=== PATIENT | female | born 1965 | race African-American/Black ===

== ENCOUNTER 2017-07-03 18:04 | Emergency (ER) | payer MEDICAID ==
[~2017-07-03 18:04] MED LIST: Z.0.NO CURRENT MEDS
[2017-07-03 18:06] VITALS: BP 165/81; PULSE 109; RESP 18; TEMP 97.9; O2SAT 98
--- NOTE | 2017-07-03 19:05 | PD ---
HPI Chief Complaint: Cardiac Complaint Time Seen by Provider: 18:49 Travel History International Travel<30 days: No Contact w/Intl Traveler<30days: No Traveled to known affect area: No History of Present Illness HPI c/o fluttering sensation to chest, intermittently occurring, no sob/cp, is in the process to go see dr irving for further care (echo, holter, ) ...denies any n/v/fever/dominique/cp/abd pain at this point and also denies any alleviating/ aggravating factors pcp is daniella all=nkda pmhx: dm, htn , retinopathy, neuropathy PFSH Past Medical History Diabetes: Yes : 1 Para: 1 Past Surgical History Section: Yes Oral Surgery: Yes (DENTAL) Social History Alcohol Use: No Tobacco Use: Yes (/2 PPD) Substance Use: No Allergies-Medications (Allergen,Severity, Reaction): Coded Allergies: No Known Allergies (Verified , 07/03/17) Reported Meds & Prescriptions Reported Meds & Active Scripts Active Reported Metoprolol Tartrate 25 Mg Tab 25 Mg PO BID Furosemide 40 Mg Tab 40 Mg PO DAILY Gabapentin 600 Mg Tab 600 Mg PO HS Zetia (Ezetimibe) 10 Mg Tab 10 Mg PO DAILY Potassium Chloride ER (Potassium Chloride) 8 Meq Cap 8 Meq PO DAILY Farxiga (Dapagliflozin) 10 Mg Tab 10 Mg PO DAILY Cozaar (Losartan Potassium) 50 Mg Tab 40 Mg PO DAILY Metformin (Metformin HCl) 1,000 Mg Tab 1,000 Mg PO BIDPC With meals Novolin 70-30 Inj (Insulin Human Isoph/Insulin Regular) 1,000 Unit/10 Ml Vial 45 Units SQ HS Novolin 70-30 Inj (Insulin Human Isoph/Insulin Regular) 1,000 Unit/10 Ml Vial 50 Units SQ DAILY Novolin 70-30 Inj (Insulin Human Isoph/Insulin Regular) 1,000 Unit/10 Ml Vial 1 Units SQ Review of Systems Except as stated in HPI: all other systems reviewed are Neg Cardiovascular: Positive: Palpitations Physical Exam Narrative GENERAL: SKIN: Warm and dry. HEAD: Atraumatic. Normocephalic. EYES: Pupils equal and round. No scleral icterus. No injection or drainage. ENT: No nasal bleeding or discharge. Mucous membranes pink and moist. NECK: Trachea midline. No JVD. CARDIOVASCULAR: Regular rate and rhythm. RESPIRATORY: No accessory muscle use. Clear to auscultation. Breath sounds equal bilaterally. GASTROINTESTINAL: Abdomen soft, non-tender, nondistended. MUSCULOSKELETAL: Extremities without clubbing, cyanosis, or edema. No obvious deformities. NEUROLOGICAL: Awake and alert. No obvious cranial nerve deficits. Motor grossly within normal limits. Five out of 5 muscle strength in the arms and legs. Normal speech. PSYCHIATRIC: Appropriate mood and affect; insight and judgment normal. Data Data Last Documented VS Vital Signs Date Time Temp Pulse Resp B/P (MAP) Pulse Ox O2 Delivery O2 Flow Rate FiO2 07/03/17 19:51 104 18 98 Room Air 07/03/17 18:06 97.9 Orders Orders Electrocardiogram (07/03/17 18:59) Complete Blood Count With Diff (07/03/17 18:59) Comprehensive Metabolic Panel (07/03/17 18:59) Troponin I (07/03/17 18:59) Lipase (07/03/17 18:59) Thyroid Stimulating Hormone (07/03/17 18:59) Chest, Single Ap (07/03/17 18:59) Iv Access Insert/Monitor (07/03/17 18:59) Ecg Monitoring (07/03/17 18:59) Oximetry (07/03/17 18:59) Drug Screen, Random Urine (07/03/17 18:59) Alcohol (Ethanol) (07/03/17 18:59) Salicylates (Aspirin) (07/03/17 18:59) Tylenol (Acetaminophen) (07/03/17 18:59) Metoprolol Succinate Er (Toprol Xl) (07/03/17 19:45) Labs Laboratory Tests Test 07/03/17 19:30 07/03/17 19:40 White Blood Count 7.5 TH/MM3 Red Blood Count 4.54 MIL/MM3 Hemoglobin 14.1 GM/DL Hematocrit 42.3 % Mean Corpuscular Volume 93.3 FL Mean Corpuscular Hemoglobin 31.1 PG Mean Corpuscular Hemoglobin Concent 33.3 % Red Cell Distribution Width 15.1 % Platelet Count 326 TH/MM3 Mean Platelet Volume 8.3 FL Neutrophils (%) (Auto) 56.1 % Lymphocytes (%) (Auto) 30.8 % Monocytes (%) (Auto) 9.0 % Eosinophils (%) (Auto) 3.2 % Basophils (%) (Auto) 0.9 % Neutrophils # (Auto) 4.2 TH/MM3 Lymphocytes # (Auto) 2.3 TH/MM3 Monocytes # (Auto) 0.7 TH/MM3 Eosinophils # (Auto) 0.2 TH/MM3 Basophils # (Auto) 0.1 TH/MM3 CBC Comment DIFF FINAL Differential Comment Blood Urea Nitrogen 15 MG/DL Creatinine 1.33 MG/DL Random Glucose 188 MG/DL Total Protein 7.7 GM/DL Albumin 3.7 GM/DL Calcium Level 9.1 MG/DL Alkaline Phosphatase 149 U/L Aspartate Amino Transf (AST/SGOT) 34 U/L Alanine Aminotransferase (ALT/SGPT) 42 U/L Total Bilirubin 0.2 MG/DL Sodium Level 139 MEQ/L Potassium Level 4.0 MEQ/L Chloride Level 104 MEQ/L Carbon Dioxide Level 23.8 MEQ/L Anion Gap 11 MEQ/L Estimat Glomerular Filtration Rate 51 ML/MIN Troponin I LESS THAN 0.02 NG/ML Lipase 370 U/L Thyroid Stimulating Hormone 3rd Gen 0.731 uIU/ML Salicylates Level 2.8 MG/DL Acetaminophen Level LESS THAN 2.0 MCG/ML Ethyl Alcohol Level LESS THAN 3 MG/DL Urine Opiates Screen NEG Urine Barbiturates Screen NEG Urine Amphetamines Screen NEG Urine Benzodiazepines Screen NEG Urine Cocaine Screen POS Urine Cannabinoids Screen POS MDM Medical Decision Making Medical Screen Exam Complete: Yes Emergency Medical Condition: Yes Medical Record Reviewed: Yes Differential Diagnosis dysrhythmia v anemia v dehydration Narrative Course ADVISED PATIENT THAT PALPITATIONS MAY BE DUE TO COCAINE IN SYSTEM, BUT THAT FURTHER EVALUATION SHOULD BE CONTINUED WITH [employer] OPERATOR HELPER FOR ECHO AND HOLTER EVALUATION. Diagnosis Primary Impression: palpitations Disposition: 01 DISCHARGE HOME Condition: Stable Damien Aguilar MD Jul 03, 2017 19:05
--- NOTE | 2017-07-03 19:14 | RADRPT ---
EXAM DATE/TIME: 07/03/2017 18:55 [facility] COMPARISON: No previous studies available for comparison. INDICATIONS : Chest palpitations that started today. MEDICAL HISTORY : Hypertension. Diabetes mellitus type II. SURGICAL HISTORY : None. ENCOUNTER: Initial ACUITY: 1 day PAIN SCORE: 0/10 LOCATION: Bilateral chest FINDINGS: A single view of the chest demonstrates the lungs to be symmetrically aerated without evidence of mas s, infiltrate or effusion. The cardiomediastinal contours are unremarkable. Osseous structures are intact. CONCLUSION: Normal one view chest x-ray. Levon Arzola MD on July 03, 2017 at 19:12 Board Certified Radiologist. This report was verified electronically.
[2017-07-03] MEDS ORDERED: METO25TA3 PO (19:34)
[2017-07-03] MEDS ORDERED: NOVO7030P2 SQ ×3 (19:34)
[2017-07-03] MEDS ORDERED: FURO40TA PO (19:34)
[2017-07-03] MEDS ORDERED: ZETI10TA5 PO (19:34)
[2017-07-03] MEDS ORDERED: COZA50TA PO (19:34)
[2017-07-03] MEDS ORDERED: METF1000 PO (19:34)
[2017-07-03] MEDS ORDERED: POTA8CAP PO (19:34)
[2017-07-03] MEDS ORDERED: DAPA1TAB3 PO (19:34)
[2017-07-03] MEDS ORDERED: GABA600T PO (19:34)
[2017-07-03] MEDS ORDERED: METOPROLOL SUCCINATE 50 MG EXTENDED RELEASE TAB PO ONE (19:45)
[2017-07-03 19:51] VITALS: BP 135/77; PULSE 104; RESP 18; O2SAT 98
[2017-07-03 20:09] LABS: AUTOMATED NEUTROPHIL # 4.2 TH/MM3 (1.8-7.7); BASOPHIL # 0.1 TH/MM3 (0-0.2); BASOPHIL % 0.9 % (0.0-2.0); EOSINOPHIL # 0.2 TH/MM3 (0-0.4); EOSINOPHIL % 3.2 % (0.0-4.0); HEMATOCRIT 42.3 % (35.0-46.0); HEMO FLAGS DIFF FINAL; LYMPH % 30.8 % (9.0-44.0); LYMPHOCYTE # 2.3 TH/MM3 (1.0-4.8); MEAN CELL VOLUME 93.3 FL (80.0-100.0); MEAN CORPUSCULAR HEMOGLOBIN 31.1 PG (27.0-34.0); MEAN CORPUSCULAR HGB CONC 33.3 % (32.0-36.0); NEUT % 56.1 % (16.0-70.0); PLATELET COUNT 326 TH/MM3 (150-450); RED BLOOD COUNT 4.54 MIL/MM3 (4.00-5.30); RED CELL DISTRIBUTION WIDTH 15.1 % (11.6-17.2); WHITE BLOOD COUNT 7.5 TH/MM3 (4.0-11.0)
[2017-07-03 20:29] LABS: ALT (GPT) 42 U/L (10-53)
[2017-07-03 20:39] LABS: ALKALINE PHOSPHATASE 149 U/L (45-117); TOTAL BILIRUBIN ADULT 0.2 MG/DL (0.2-1.0)
[2017-07-03 20:52] LABS: ANION GAP 11 MEQ/L (5-15); AST (GOT) 34 U/L (15-37); BICARBONATE 23.8 MEQ/L (21.0-32.0); BLOOD UREA NITROGEN 15 MG/DL (7-18); CHLORIDE 104 MEQ/L (98-107); GLOMERULAR FILTRATION RATE 51 ML/MIN (>89); SODIUM (NA) 139 MEQ/L (136-145)
[2017-07-03 20:55] LABS: ACETAMINOPHEN LESS THAN 2.0 MCG/ML (10.0-30.0); ALCOHOL LESS THAN 3 MG/DL (0-5)
--- NOTE | 2017-07-04 21:36 | EKG ---
Date Performed: 07/03/2017 Time Performed: 19:24:58 PTAGE: 51 years EKG: SINUS TACHYCARDIA ABNORMAL RHYTHM ECG NO PREVIOUS TRACING DOCTOR: Armen Heller Interpretating Date/Time 07/04/2017 21:35:36
== END 2017-07-03 22:33 | disposition home or self-care (01) ==
LOC: NEPD 18:04
DX: R00.2 Palpitations (principal); R94.31 Abnormal electrocardiogram [ECG] [EKG]; R00.0 Tachycardia, unspecified; E11.319 Type 2 diabetes mellitus with unspecified diabetic retinopathy without macular edema; E11.40 Type 2 diabetes mellitus with diabetic neuropathy, unspecified; I10 Essential (primary) hypertension; F17.200 Nicotine dependence, unspecified, uncomplicated; Z79.4 Long term (current) use of insulin; Z79.899 Other long term (current) drug therapy
CPT/HCPCS: 71010; 80053; 80307; 83690; 84443; 84484; 85025; 93005; 99285

== ENCOUNTER 2017-11-06 20:26 | Inpatient (IN) | payer MEDICAID ==
[~2017-11-06] VITALS: Ht 172.7 cm; Wt 126.9 kg
[~2017-11-06 20:26] MED LIST changes: +COZA50TA PO; +DAPA1TAB3 PO; +EZET10 PO; +FURO40TA PO; +GABA600T PO; +METF1000 PO; +METO25TA3 PO; +NOVO7030P2 SQ; +POTA8CAP PO; -Z.0.NO CURRENT MEDS
[2017-11-06 20:32] VITALS: BP 121/69; PULSE 102; RESP 16; TEMP 100; O2SAT 97
[2017-11-06] MEDS ORDERED: IBUPROFEN 800 MG TAB PO ONE (20:45)
[2017-11-06 21:13] LABS: BASOPHIL # 0.1 TH/MM3 (0-0.2); BASOPHIL % 0.3 % (0.0-2.0); EOSINOPHIL % 0.2 % (0.0-4.0); HEMATOCRIT 37.2 % (35.0-46.0); HEMOGLOBIN 12.1 GM/DL (11.6-15.3); LYMPH % 4.3 % (9.0-44.0); LYMPHOCYTE # 0.8 TH/MM3 (1.0-4.8); MEAN CELL VOLUME 91.8 FL (80.0-100.0); MEAN CORPUSCULAR HEMOGLOBIN 29.8 PG (27.0-34.0); MEAN CORPUSCULAR HGB CONC 32.4 % (32.0-36.0); MONO % 11.2 % (0.0-8.0); MONOCYTE # 2.1 TH/MM3 (0-0.9); PLATELET COUNT 327 TH/MM3 (150-450); RED BLOOD COUNT 4.06 MIL/MM3 (4.00-5.30); RED CELL DISTRIBUTION WIDTH 15.1 % (11.6-17.2)
[2017-11-06 21:38] LABS: ALBUMIN 3.1 GM/DL (3.4-5.0); ALT (GPT) 47 U/L (10-53); AST (GOT) 28 U/L (15-37); BICARBONATE 25.6 MEQ/L (21.0-32.0); BLOOD UREA NITROGEN 13 MG/DL (7-18); CALCIUM 9.3 MG/DL (8.5-10.1); CHLORIDE 99 MEQ/L (98-107); CREATININE 1.24 MG/DL (0.50-1.00); GLOMERULAR FILTRATION RATE 55 ML/MIN (>89); GLUCOSE,RANDOM 286 MG/DL (74-106); SODIUM (NA) 135 MEQ/L (136-145)
[2017-11-06 21:41] LABS: ALKALINE PHOSPHATASE 128 U/L (45-117); TOTAL BILIRUBIN ADULT 0.3 MG/DL (0.2-1.0); TOTAL PROTEIN 7.9 GM/DL (6.4-8.2)
[2017-11-06] MEDS ORDERED: METOCLOPRAMIDE HCL 10 MG/2 ML VIAL IV PUSH ONE (22:00)
[2017-11-06] MEDS ORDERED: PIPERACIL-TAZO 4.5 GM PREMIX 100 ML IV ONE (22:00)
[2017-11-06] MEDS ORDERED: IBUPROFEN 600 MG TAB PO ONE (22:00)
[2017-11-06] MEDS ORDERED: VANCOMYCIN 1 GM/200 ML INJ 200 ML IV SCH (22:00)
[2017-11-06] MEDS ORDERED: diphenhydrAMINE HCL 50 MG/ML VIAL IV PUSH ONE (22:00)
--- NOTE | 2017-11-06 22:07 | PD ---
HPI Chief Complaint: Skin Problem Time Seen by Provider: 21:53 Travel History International Travel<30 days: No Contact w/Intl Traveler<30days: No Traveled to known affect area: No History of Present Illness HPI 52-year-old black female presents to emergency department with complains of an infection under her right breast. She states that she started off with pain, swelling to her right breast and chest since Sunday. She states that she has had a prior skin infection involving her right lower leg. Since the area has become recently painful and red she's developed subjective fever and chills, nausea, vomiting, general malaise and decreased appetite. She has not been able to take her insulin. She has noted her blood sugars to be over 350 at home. Symptoms are moderate to can be severe. He denies any alleviating symptoms. PFSH Past Medical History Narrative Medical Diabetes, hypercholesterolemia, hypertension, diabetic neuropathy, diabetic retinopathy High Cholesterol: Yes Diabetes: Yes Patient Takes Glucophage: Yes Diminished Hearing: No Hypertension: Yes Tetanus Vaccination: < 5 Years ?: Not : 1 Para: 1 Past Surgical History Narrative Surgical Section: Yes Oral Surgery: Yes (DENTAL) Social History Alcohol Use: No Tobacco Use: Yes (10/23 PPD) Substance Use: No Allergies-Medications (Allergen,Severity, Reaction): Coded Allergies: No Known Allergies (Verified , 07/03/17) Reported Meds & Prescriptions Reported Meds & Active Scripts Active Reported Furosemide 40 Mg Tab 40 Mg PO DAILY Gabapentin 600 Mg Tab 600 Mg PO HS Potassium Chloride ER (Potassium Chloride) 8 Meq Cap 8 Meq PO DAILY Farxiga (Dapagliflozin) 10 Mg Tab 10 Mg PO DAILY Cozaar (Losartan Potassium) 50 Mg Tab 40 Mg PO DAILY Metformin (Metformin HCl) 1,000 Mg Tab 1,000 Mg PO BIDPC With meals Novolin 70-30 Inj (Insulin Human Isoph/Insulin Regular) 1,000 Unit/10 Ml Vial 45 Units SQ HS Novolin 70-30 Inj (Insulin Human Isoph/Insulin Regular) 1,000 Unit/10 Ml Vial 50 Units SQ DAILY Novolin 70-30 Inj (Insulin Human Isoph/Insulin Regular) 1,000 Unit/10 Ml Vial 1 Units SQ Review of Systems Except as stated in HPI: all other systems reviewed are Neg Physical Exam Narrative GENERAL: Well-developed, well-nourished in no apparent distress. Nontoxic appearing. Patient is examined in the presence of the nurse. HEAD: Normocephalic, atraumatic. EYES: Pupils equal round and reactive. Extraocular motions intact. No scleral icterus. No injection or drainage. ENT: Nose clear. Throat without erythema, tonsillar hypertrophy or exudate. Uvula midline. Airway patent. NECK: Trachea midline. Supple, nontender, moves head freely. No central bony tenderness or spasm. CARDIOVASCULAR: Regular rate and rhythm without murmurs, gallops, or rubs. RESPIRATORY: Clear to auscultation. Breath sounds equal bilaterally. No wheezes , rales, or rhonchi. GASTROINTESTINAL: Abdomen soft, non-tender, nondistended. No hepato-splenomegaly , or palpable masses. No guarding. EXTREMITIES: No clubbing, cyanosis, or edema. No joint tenderness. BACK: Nontender without deformity. No flank tenderness. NEUROLOGICAL: Awake, alert and oriented x 3 .Cranial nerves grossly intact. Motor and sensory grossly within normal limits. Normal speech. Skin: The patient has an area of erythema, warmth and induration under the right breast up into the right breast involving the outer quadrant in the area of 3 and 6:00 on the breast. There is no fluctuance or pointing. Data Data Last Documented VS Vital Signs Date Time Temp Pulse Resp B/P (MAP) Pulse Ox O2 Delivery O2 Flow Rate FiO2 11/06/17 20:32 100.0 102 16 121/69 (86) 97 Orders Orders Complete Blood Count With Diff (11/06/17 20:37) Comprehensive Metabolic Panel (11/06/17 20:37) Ibuprofen (Motrin) (11/06/17 20:45) Influenzae A/B Antigen (11/06/17 20:37) Blood Culture (11/06/17 22:00) Iv Access Insert/Monitor (11/06/17 22:00) Lactic Acid (11/06/17 22:00) Vancomycin Inj (Vancomycin Inj) (11/06/17 22:00) Piperacil-Tazo 4.5 Gm Premix (Zosyn 4.5 (11/06/17 22:00) Us Breast Unilateral (11/06/17 ) Diphenhydramine Inj (Benadryl Inj) (11/06/17 22:00) Metoclopramide Inj (Reglan Inj) (11/06/17 22:00) Ibuprofen (Motrin) (11/06/17 22:00) Sodium Chlor 0.9% 1000 Ml Inj (Ns 1000 M (11/06/17 22:15) Sodium Chlor 0.9% 1000 Ml Inj (Ns 1000 M (11/06/17 22:15) Admit To Inpatient (11/06/17 ) Vital Signs (Adult) Q4H (11/06/17 22:37) Activity Oob With Assistance (11/06/17 22:37) Internal Control Manager / Telemetry .CONTINUOUS (11/06/17 22:37) Diet 1800 Ada Cons Carb (11/07/17 Breakfast) Diet Heart Healthy (11/07/17 Breakfast) Sodium Chloride 0.9% Flush (Ns Flush) (11/06/17 22:45) Sodium Chloride 0.9% Flush (Ns Flush) (11/07/17 09:00) Basic Metabolic Panel (Bmp) (11/07/17 06:00) Complete Blood Count With Diff (11/07/17 06:00) Naloxone Inj (Narcan Inj) (11/06/17 22:45) Inpatient Certification (11/06/17 ) Levofloxacin 750 Mg Premix Inj (Levaquin (11/07/17 09:00) Insulin Human Regular Inj (Novolin R Inj (11/06/17 22:45) Admit Order (Ed Use Only) (11/06/17 ) Vital Signs (Adult) Q4H (11/06/17 22:43) Activity Oob With Assistance (11/06/17 22:43) Notify Dr: Other (11/06/17 22:43) Labs Laboratory Tests Test 11/06/17 20:46 11/06/17 22:10 White Blood Count 19.0 TH/MM3 Red Blood Count 4.06 MIL/MM3 Hemoglobin 12.1 GM/DL Hematocrit 37.2 % Mean Corpuscular Volume 91.8 FL Mean Corpuscular Hemoglobin 29.8 PG Mean Corpuscular Hemoglobin Concent 32.4 % Red Cell Distribution Width 15.1 % Platelet Count 327 TH/MM3 Mean Platelet Volume 8.0 FL Neutrophils (%) (Auto) 84.0 % Lymphocytes (%) (Auto) 4.3 % Monocytes (%) (Auto) 11.2 % Eosinophils (%) (Auto) 0.2 % Basophils (%) (Auto) 0.3 % Neutrophils # (Auto) 16.0 TH/MM3 Lymphocytes # (Auto) 0.8 TH/MM3 Monocytes # (Auto) 2.1 TH/MM3 Eosinophils # (Auto) 0.0 TH/MM3 Basophils # (Auto) 0.1 TH/MM3 CBC Comment DIFF FINAL Differential Comment Blood Urea Nitrogen 13 MG/DL Creatinine 1.24 MG/DL Random Glucose 286 MG/DL Total Protein 7.9 GM/DL Albumin 3.1 GM/DL Calcium Level 9.3 MG/DL Alkaline Phosphatase 128 U/L Aspartate Amino Transf (AST/SGOT) 28 U/L Alanine Aminotransferase (ALT/SGPT) 47 U/L Total Bilirubin 0.3 MG/DL Sodium Level 135 MEQ/L Potassium Level 3.7 MEQ/L Chloride Level 99 MEQ/L Carbon Dioxide Level 25.6 MEQ/L Anion Gap 10 MEQ/L Estimat Glomerular Filtration Rate 55 ML/MIN MDM Medical Decision Making Medical Screen Exam Complete: Yes Emergency Medical Condition: Yes Medical Record Reviewed: Yes Interpretation(s) CBC & BMP Diagram 11/06/17 20:46 Total Protein 7.9, Albumin 3.1 L, Calcium Level 9.3, Alkaline Phosphatase 128 H , Aspartate Amino Transf (AST/SGOT) 28, Alanine Aminotransferase (ALT/SGPT) 47, Total Bilirubin 0.3 Last 24 hours Impressions Breast Ultrasound 11/06/17 0000 Signed Impressions: Service Date/Time: Monday, November 06, 2017 22:01 - CONCLUSION: This examination was performed to evaluate for any abscess. No abscess is observed. Isolated sonographic evaluation of the breast without mammographic correlate is exceedingly insensitive for detection of malignancy. Correlation with mammography is needed. Jelani Castelan Jr., MD Differential Diagnosis MDM: High Differential diagnoses: Abscess, folliculitis, cellulitis, lymphangitis, abrasion, contact dermatitis Narrative Course IV access is obtained. Patient has basic labs drawn including blood culture, lactic acid, normal saline 1 L bolus, Motrin 600 mg by mouth, vancomycin 1 g IV , Zosyn 4.5 mg IV. Ultrasound of the right breast. Ultrasound of the breast reveals no obvious abscess. The patient is given 3 units of regular insulin IV. The case has been discussed with Dr. WHITEHEAD who is agreed to admit the patient. This is right chest wall and right breast cellulitis Sepsis Criteria SIRS Criteria (2 or more): Heart rate over 90, WBC > 10058, < 4000 or > 10% bands Sepsis Criteria (SIRS+source): Infect source susp/known Criteria Outcome: Meets SIRS criteria Diagnosis Primary Impression: right chest wall and right breast cellulitis Condition: Stable Venkatesh Winters Nov 06, 2017 22:07
[2017-11-06] MEDS ORDERED: SODIUM CHLOR 0.9% 1000 ML INJ 1,000 ML IV ONE ×2 (22:15)
--- NOTE | 2017-11-06 22:32 | RADRPT ---
EXAM DATE/TIME: 11/06/2017 22:01 [facility] COMPARISON: No previous studies available for comparison. INDICATIONS : Abscess. MEDICAL HISTORY : Hypercholesterolemia. Hypertension. Diabetes. SURGICAL HISTORY : section. Dental surgery. ENCOUNTER: Initial ACUITY: 1 week PAIN SCORE: 10/10 LOCATION: Right breast. FINDINGS: Sonographic evaluation of the right breast from 4 to 8: 00 position was performed to evaluate for abscess. No fluid collection observed. CONCLUSION: This examination was performed to evaluate for any abscess. No abscess is observed. Isolated sonograp hic evaluation of the breast without mammographic correlate is exceedingly insensitive for detection of malignancy. Correlation with mammography is needed. Jelani Castelan Jr., MD on November 06, 2017 at 22:27 Board Certified Radiologist. This report was verified electronically.
[2017-11-06] MEDS ORDERED: NALOXONE HCL 0.4 MG/ML AMP IV PUSH PRN (22:45)
[2017-11-06] MEDS ORDERED: SODIUM CHLORIDE 0.9% FLUSH 10 ML FLUSH IV FLUSH PRN (22:45)
[2017-11-06] MEDS ORDERED: INSULIN HUMAN REGULAR 1,000 UNITS/10 ML VIAL IV PUSH ONE (22:45)
--- NOTE | 2017-11-06 23:58 | HHI.HP ---
HPI Service [facility] Hospitalists Primary Care Physician Non-Staff Admission Diagnosis right chest wall and right breast cellulitis, IDDM Diagnoses: Travel History International Travel<30 Days: No Contact w/Intl Traveler <30 Da: No Traveled to Known Affected Are: No History of Present Illness 52-year-old female with a history of hypertension, diabetes, diabetic neuropathy presented to the ED with complaints of painful lump under her right breast. Patient states on Sunday she noticed a right lump under her right breast that is very painful, throbbing in nature, 8 out of 10, worse with movement with associated nausea, fever and chills. Patient states 3 years ago she had an infection in her right foot in which she had similar symptoms so she came to the hospital. She is currently on insulin at home and states her sugars are not controlled but she does follow up with PCP. She denies any chest pain. She does state she gets shortness of breath with exertion since Sunday. Review of Systems Except as stated in HPI: all other systems reviewed are Neg Past Family Social History Past Medical History DM HTN Diabetic retinopathy Diabetic neuropathy Past Surgical History Right foot I&D Reported Medications Reported Meds & Active Scripts Active Reported Furosemide 40 Mg Tab 40 Mg PO DAILY Gabapentin 600 Mg Tab 600 Mg PO HS Potassium Chloride ER (Potassium Chloride) 8 Meq Cap 8 Meq PO DAILY Farxiga (Dapagliflozin) 10 Mg Tab 10 Mg PO DAILY Cozaar (Losartan Potassium) 50 Mg Tab 40 Mg PO DAILY Metformin (Metformin HCl) 1,000 Mg Tab 1,000 Mg PO BIDPC With meals Novolin 70-30 Inj (Insulin Human Isoph/Insulin Regular) 1,000 Unit/10 Ml Vial 45 Units SQ HS Novolin 70-30 Inj (Insulin Human Isoph/Insulin Regular) 1,000 Unit/10 Ml Vial 50 Units SQ DAILY Novolin 70-30 Inj (Insulin Human Isoph/Insulin Regular) 1,000 Unit/10 Ml Vial 1 Units SQ Allergies: Coded Allergies: No Known Allergies (Verified Allergy, Unknown, 11/06/17) Active Ordered Medications Current Medications Medications (Trade) Dose Ordered Sig/Matthew Route Start Time Stop Time Status Last Admin Vancomycin/Sodium Chloride 200 ml @ 200 mls/hr [employer] INST[employer]ER IV 11/06/17 22:00 11/09/17 21:59 (NS Flush) 2 ml UNSCH PRN IV FLUSH 11/06/17 22:45 (NS Flush) 2 ml BID IV FLUSH 11/07/17 09:00 (Narcan Inj) 0.4 mg UNSCH PRN IV PUSH 11/06/17 22:45 Levofloxacin/ Dextrose 150 ml @ 100 mls/hr Q24H IV 11/07/17 09:00 Family History Dad: HTN, DM, heart disease Mom: Fady cancer Social History Tobacco use: /2 PPD Alcohol use: occasionally Physical Exam Vital Signs Vital Signs Date Time Temp Pulse Resp B/P (MAP) Pulse Ox O2 Delivery O2 Flow Rate FiO2 11/06/17 20:32 100.0 102 16 121/69 (86) 97 Physical Exam GENERAL: This is a well-nourished, well-developed patient, in no apparent distress. SKIN: Right breast cellulitis erythema and warmth, no drainage HEAD: Atraumatic. Normocephalic. EYES: Pupils equal round and reactive. ENT: Nose without bleeding, purulent drainage or septal hematoma. Airway patent. NECK: Trachea midline. No JVD or lymphadenopathy. CARDIOVASCULAR: Regular rate and rhythm without murmurs, gallops, or rubs. RESPIRATORY: Diminished bases. Breath sounds equal bilaterally. No wheezes, rales, or rhonchi. GASTROINTESTINAL: Abdomen soft, obese, non-tender, nondistended. MUSCULOSKELETAL: Extremities without clubbing, cyanosis, or edema. No calf tenderness. NEUROLOGICAL: Awake and alert. Motor and sensory grossly within normal limits. Normal speech. Laboratory Laboratory Tests Test 11/06/17 20:46 11/06/17 22:10 White Blood Count 19.0 Red Blood Count 4.06 Hemoglobin 12.1 Hematocrit 37.2 Mean Corpuscular Volume 91.8 Mean Corpuscular Hemoglobin 29.8 Mean Corpuscular Hemoglobin Concent 32.4 Red Cell Distribution Width 15.1 Platelet Count 327 Mean Platelet Volume 8.0 Neutrophils (%) (Auto) 84.0 Lymphocytes (%) (Auto) 4.3 Monocytes (%) (Auto) 11.2 Eosinophils (%) (Auto) 0.2 Basophils (%) (Auto) 0.3 Neutrophils # (Auto) 16.0 Lymphocytes # (Auto) 0.8 Monocytes # (Auto) 2.1 Eosinophils # (Auto) 0.0 Basophils # (Auto) 0.1 CBC Comment DIFF FINAL Differential Comment Blood Urea Nitrogen 13 Creatinine 1.24 Random Glucose 286 Total Protein 7.9 Albumin 3.1 Calcium Level 9.3 Alkaline Phosphatase 128 Aspartate Amino Transf (AST/SGOT) 28 Alanine Aminotransferase (ALT/SGPT) 47 Total Bilirubin 0.3 Sodium Level 135 Potassium Level 3.7 Chloride Level 99 Carbon Dioxide Level 25.6 Anion Gap 10 Estimat Glomerular Filtration Rate 55 Lactic Acid Level 2.1 Date/Time Source Procedure Growth Status 11/06/17 22:10 Blood Peripheral Aerobic Blood Culture Pending Received 11/06/17 22:10 Blood Peripheral Anaerobic Blood Culture Pending Received 11/06/17 20:46 Nasal Washing Influenza Types A,B Antigen (SRINI) - Final NEGATIVE FOR FLU A AND B ANTIGEN.... Complete Result Diagram: 11/06/17204511/06/172045 Imaging Last Impressions Breast Ultrasound 11/06/17 0000 Signed Impressions: Service Date/Time: Monday, November 06, 2017 22:01 - CONCLUSION: This examination was performed to evaluate for any abscess. No abscess is observed. Isolated sonographic evaluation of the breast without mammographic correlate is exceedingly insensitive for detection of malignancy. Correlation with mammography is needed. MD Naeem Jaquez Jr. VTE Risk Assessment Caprini VTE Risk Assessment: No/Low Risk (score <= 1) Caprini Risk Assessment Model Point Value = 1 Point Value = 2 Point Value = 3 Point Value = 5 Age 41-60 Minor surgery BMI > 25 kg/m2 Swollen legs Varicose veins or History of unexplained or recurrent spontaneous Oral contraceptives or hormone replacement Sepsis (< 1 month) Serious lung disease, including pneumonia (< 1 month) Abnormal pulmonary function Acute myocardial infarction Congestive heart failure (< 1 month) History of inflammatory bowel disease Medical patient at bed rest Age 61-74 Arthroscopic surgery Major open surgery (> 45 min) Laparoscopic surgery (> 45 min) Malignancy Confined to bed (> 72 hours) Immobilizing plaster cast Central venous access Age >= 75 History of VTE Family history of VTE Factor V Leiden Prothrombin [id number] Lupus anticoagulant Anticardiolipin antibodies Elevated serum homocysteine Heparin-induced thrombocytopenia Other congenital or acquired thrombophilia Stroke (< 1 month) Elective arthroplasty Hip, pelvis, or leg fracture Acute spinal cord injury (< 1 month) Prophylaxis Regimen Total Risk Factor Score Risk Level Prophylaxis Regimen 0-1 Low Early ambulation 2 Moderate Order ONE of the following: *Sequential Compression Device (SCD) *Heparin 5000 units SQ BID 3-4 Higher Order ONE of the following medications: *Heparin 5000 units SQ TID *Enoxaparin/Lovenox 40 mg SQ daily (WT < 150 kg, CrCl > 30 mL/min) *Enoxaparin/Lovenox 30 mg SQ daily (WT < 150 kg, CrCl > 10-29 mL/min) *Enoxaparin/Lovenox 30 mg SQ BID (WT < 150 kg, CrCl > 30 mL/min) AND/OR *Sequential Compression Device (SCD) 5 or more Highest Order ONE of the following medications: *Heparin 5000 units SQ TID (Preferred with Epidurals) *Enoxaparin/Lovenox 40 mg SQ daily (WT < 150 kg, CrCl > 30 mL/min) *Enoxaparin/Lovenox 30 mg SQ daily (WT < 150 kg, CrCl > 10-29 mL/min) *Enoxaparin/Lovenox 30 mg SQ BID (WT < 150 kg, CrCl > 30 mL/min) AND *Sequential Compression Device (SCD) Assessment and Plan Problem List: (1) Cellulitis of right breast ICD Code: N61.0 - Mastitis without abscess (2) Hypertension ICD Code: I10 - Essential (primary) hypertension (3) Diabetes ICD Code: E11.9 - Type 2 diabetes mellitus without complications Assessment and Plan 52-year-old female with a history of hypertension, CKD, diabetes, diabetic neuropathy presented to the ED with complaints of painful lump under her right breast. Sepsis by criteria, heart rate 102, WBC 19.0 source Right breast cellulitis with leukocytosis, lactic acid 2.1 Breast ultrasound reviewed and shows no evidence of an abscess -NS bolus given X 2 -Levaquin IV daily, vancomycin and Zosyn given in ED -Blood cultures pending, will place ID consult if needed -CBC in a.m. -Pain management with [place] -Zofran for nausea, Tylenol for fevers -Repeat lactic acid pending Diabetes, chronic, uncontrolled, glucose 286 -Resumed home medications -Accu-Cheks before meals and at bedtime -Diabetic diet Hypertension, chronic, currently controlled -Resume home medications and monitor vitals CKD, creatinine 1.2 at baseline -Resumed home medications -Avoid nephrotoxins DVT prophylaxis: SCDs Discussed Condition With Patient Physician Certification 2 Midnight Certification Type: Admission for Inpatient Services Order for Inpatient Services The services are ordered in accordance with Medicare regulations or non- Medicare payer requirements, as applicable. In the case of services not specified as inpatient-only, they are appropriately provided as inpatient services in accordance with the 2-midnight benchmark. Estimated LOS (days): 3 days is the estimated time the patient will need to remain in the hospital, assuming treatment plan goals are met and no additional complications. Post-Hospital Plan: Home Janessa Sousa Nov 06, 2017 23:58
[2017-11-07] MEDS ORDERED: DEXTROSE 50% IN WATER 50 ML VIAL(D50) IV PUSH PRN ×2 (00:45→12:30)
[2017-11-07] MEDS ORDERED: GLUCAGON 1 MG/ML VIAL OTHER PRN ×2 (00:45→12:30)
[2017-11-07] MEDS ORDERED: RESP: ALBUTEROL 2.5 MG/IPRATROPIUM 0.5 MG NEB (PRN) NEB (00:45)
[2017-11-07] MEDS: ACETAMINOPHEN/HYDROcodone 325 MG/10 MG TAB PO PRN ×2 (01:50→08:21)
[2017-11-07 02:47] LABS: AUTOMATED NEUTROPHIL # 11.5 TH/MM3 (1.8-7.7); BASOPHIL # 0.1 TH/MM3 (0-0.2); BASOPHIL % 0.4 % (0.0-2.0); EOSINOPHIL % 0.3 % (0.0-4.0); HEMATOCRIT 33.5 % (35.0-46.0); HEMOGLOBIN 11.3 GM/DL (11.6-15.3); LYMPH % 6.4 % (9.0-44.0); LYMPHOCYTE # 0.9 TH/MM3 (1.0-4.8); MEAN CELL VOLUME 92.1 FL (80.0-100.0); MEAN CORPUSCULAR HGB CONC 33.6 % (32.0-36.0); MEAN PLATELET VOLUME 7.8 FL (7.0-11.0); MONO % 11.5 % (0.0-8.0); MONOCYTE # 1.6 TH/MM3 (0-0.9); NEUT % 81.4 % (16.0-70.0); PLATELET COUNT 278 TH/MM3 (150-450); RED BLOOD COUNT 3.64 MIL/MM3 (4.00-5.30); WHITE BLOOD COUNT 14.2 TH/MM3 (4.0-11.0)
[2017-11-07 03:25] LABS: BICARBONATE 27.3 MEQ/L (21.0-32.0); CALCIUM 8.1 MG/DL (8.5-10.1); CREATININE 1.13 MG/DL (0.50-1.00)
[2017-11-07 04:00] VITALS: BP 117/64; PULSE 103; RESP 16; TEMP 97.8; O2SAT 92
[2017-11-07] MEDS: SODIUM CHLOR 0.9% 1000 ML INJ 1,000 ML IV SCH ×3 (05:45→22:38)
[2017-11-07] MEDS: FUROSEMIDE 40 MG TAB PO SCH (08:19)
[2017-11-07] MEDS: metFORMIN HCL 500 MG TAB PO SCH ×2 (08:19→18:14)
[2017-11-07] MEDS: LEVOFLOXACIN 750 MG PREMIX INJ 150 ML IV SCH (08:21)
[2017-11-07] MEDS ORDERED: INSULIN HUMAN NPH/R 70/30 1,000 UNITS/10 ML VIAL SQ SCH ×2 (09:00→21:00)
[2017-11-07] MEDS ORDERED: [UNRECOGNIZED DRUG - OTHER] PO SCH (09:00)
[2017-11-07] MEDS: POTASSIUM CHLORIDE 8 MEQ CAP PO SCH (09:00)
[2017-11-07] MEDS ORDERED: FARXIGA 10 MG PO SCH (09:00)
[2017-11-07 09:02] VITALS: BP 130/80; PULSE 111; RESP 18; TEMP 99.4; O2SAT 95
[2017-11-07] MEDS: LOSARTAN 50 MG TAB PO SCH (10:20)
[2017-11-07] MEDS: SODIUM CHLORIDE 0.9% FLUSH 10 ML FLUSH IV FLUSH SCH ×2 (10:25→21:00)
[2017-11-07 12:35] VITALS: BP 131/70; PULSE 120; RESP 18; TEMP 101.1; O2SAT 96
[2017-11-07] MEDS: ACETAMINOPHEN 325 MG TAB PO PRN (13:36)
[2017-11-07 16:47] VITALS: BP 112/62; PULSE 108; RESP 18; TEMP 98.1; O2SAT 93
[2017-11-07] MEDS ORDERED: Vancomycin Consult Pharmacy 1 EA OTHER SCH (17:30)
[2017-11-07] MEDS ORDERED: VANCOMYCIN 1 GM/200 ML INJ 200 ML IV SCH (17:30)
--- NOTE | 2017-11-07 17:34 | HHI.PR ---
Subjective Remarks Patient still c/o pain under right breast Denies cp/sob. (+) fevers - 101 tmax today Objective Vitals Vital Signs Date Time Temp Pulse Resp B/P (MAP) Pulse Ox O2 Delivery O2 Flow Rate FiO2 11/07/17 16:47 98.1 108 18 112/62 (79) 93 11/07/17 12:35 101.1 120 18 131/70 (90) 96 11/07/17 09:02 99.4 111 18 130/80 (97) 95 11/07/17 04:00 97.8 103 16 117/64 (81) 92 11/07/17 03:02 Room Air 11/06/17 20:32 100.0 102 16 121/69 (86) 97 I/O 11/06/17 11/06/17 11/06/17 11/07/17 11/07/17 11/07/17 06:59 14:59 22:59 06:59 14:59 22:59 # Voids 3 Result Diagram: 11/07/17 0236 11/07/17 0236 Imaging Last Impressions Breast Ultrasound 11/06/17 0000 Signed Impressions: Service Date/Time: Monday, November 06, 2017 22:01 - CONCLUSION: This examination was performed to evaluate for any abscess. No abscess is observed. Isolated sonographic evaluation of the breast without mammographic correlate is exceedingly insensitive for detection of malignancy. Correlation with mammography is needed. Jelani Castelan Jr., MD Objective Remarks GENERAL: This is a well-nourished, well-developed patient, in no apparent distress. SKIN: Right breast cellulitis erythema and warmth, no drainage HEAD: Atraumatic. Normocephalic. EYES: Pupils equal round and reactive. ENT: Nose without bleeding, purulent drainage or septal hematoma. Airway patent. NECK: Trachea midline. No JVD or lymphadenopathy. CARDIOVASCULAR: Regular rate and rhythm without murmurs, gallops, or rubs. RESPIRATORY: Diminished bases. Breath sounds equal bilaterally. No wheezes, rales, or rhonchi. GASTROINTESTINAL: Abdomen soft, obese, non-tender, nondistended. MUSCULOSKELETAL: Extremities without clubbing, cyanosis, or edema. No calf tenderness. NEUROLOGICAL: Awake and alert. Motor and sensory grossly within normal limits. Normal speech. 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 11/06/17 22:00 11/09/17 21:59 11/07/17 00:24 (NS Flush) 2 ml UNSCH PRN IV FLUSH 11/06/17 22:45 (NS Flush) 2 ml BID IV FLUSH 11/07/17 09:00 11/07/17 10:25 (Narcan Inj) 0.4 mg UNSCH PRN IV PUSH 11/06/17 22:45 Levofloxacin/ Dextrose 150 ml @ 100 mls/hr Q24H IV 11/07/17 09:00 11/07/17 08:21 ([place] 5-325 Mg) 1 tab Q4H PRN PO 11/07/17 00:45 ([place] 10-325 Mg) 1 tab Q4H PRN PO 11/07/17 00:45 11/07/17 08:21 (Duoneb Neb) 1 ampule Q4HR NEB PRN NEB 11/07/17 00:45 (Lasix) 40 mg DAILY PO 11/07/17 09:00 11/07/17 08:19 (Neurontin) 600 mg HS PO 11/07/17 21:00 (NovoLIN 70/30 INJ) 45 units HS SQ 11/07/17 21:00 (NovoLIN 70/30 INJ) 50 units DAILY SQ 11/07/17 09:00 11/07/17 08:20 (Cozaar) 50 mg DAILY PO 11/07/17 09:00 11/07/17 10:20 (Glucophage) 1,000 mg BIDPC PO 11/07/17 09:00 11/07/17 08:19 (KCl) 8 meq DAILY PO 11/07/17 09:00 11/07/17 09:00 Patient Own Medication PT OWN MED: Tabl... DAILY PO 11/07/17 09:00 Future Hold Sodium Chloride 1,000 ml @ 100 mls/hr Q10H IV 11/07/17 04:15 11/07/17 05:45 (D50w (Vial) Inj) 50 ml UNSCH PRN IV PUSH 11/07/17 12:30 (Glucagon Inj) 1 mg UNSCH PRN OTHER 11/07/17 12:30 (NovoLOG SUPPLEMENTAL SCALE) 1 ACHS SLIDING SCALE SQ 11/07/17 17:00 (Tylenol) 650 mg Q4H PRN PO 11/07/17 13:15 11/07/17 13:36 A/P Problem List: (1) Sepsis ICD Code: A41.9 - Sepsis, unspecified organism (2) Cellulitis of right breast ICD Code: N61.0 - Mastitis without abscess (3) Hypertension ICD Code: I10 - Essential (primary) hypertension (4) Diabetes ICD Code: E11.9 - Type 2 diabetes mellitus without complications (5) Leukocytosis ICD Code: D72.829 - Elevated white blood cell count, unspecified Assessment and Plan 2-year-old female with a history of hypertension, CKD, diabetes, diabetic neuropathy presented to the ED with complaints of painful lump under her right breast. Sepsis by criteria, heart rate 102, WBC 19.0 source Right breast cellulitis with leukocytosis, lactic acid 2.1 Breast ultrasound reviewed and shows no evidence of an abscess -NS bolus given X 2 -Levaquin IV daily, vancomycin and Zosyn given in ED -Blood cultures pending, will place ID consult if needed -CBC in a.m. -Pain management with [place] -Zofran for nausea, Tylenol for fevers -Repeat lactic acid pending 11/07 Blood cultures negative x1, continue IV Levaquin, I will add IV Vancomycin. Consult ID. Patient still tachycardic and febrile. WBC trending down. Diabetes, chronic, uncontrolled, glucose 286 -Resumed home medications -Accu-Cheks before meals and at bedtime -Diabetic diet 11/07 sugars as severely uncontrolled in the 250s. Will start the patient on insulin Levemir. Continue to monitor Accu-Cheks and also place on SSI with insulin NovoLog. I will hold metformin while the patient is hospitalized. Hypertension, chronic, currently controlled -Resume home medications and monitor vitals 11/07 blood pressure stable. Continue current antihypertensive medications. The patient currently on losartan. CKD, creatinine 1.2 at baseline -Resumed home medications -Avoid nephrotoxins Elevated lactic acid level. - Likely secondary to sepsis. Lactic acid slightly elevated from 2.1 to 2.2. - Continue IV Fluids, increase rate from 100 ml/hr to 125 ml/hr - Monitor lactic acid level Leukocytosis - Due to sepsis 2/2 cellulitis. - Trending down, continue to monitor cbc w diff. DVT prophylaxis: SCDs Discharge Planning Continue to monitor in the medical floor. The patient still febrile, tachycardic, elevated lactic acid. ID consult pending. Problem Qualifiers (1) Sepsis: Qualified Codes: A41.9 - Sepsis, unspecified organism (2) Diabetes: Qualified Codes: E11.65 - Type 2 diabetes mellitus with hyperglycemia; Z79.4 - middle or intermediate school principal (current) use of insulin (3) Leukocytosis: Qualified Codes: D72.829 - Elevated white blood cell count, unspecified Buck Mcbride MD Nov 07, 2017 17:34
[2017-11-07] MEDS: INSULIN ASPART SUPPLEMENTAL SCALE SQ SCH ×2 (18:14→22:37)
[2017-11-07] MEDS ORDERED: VANCOMYCIN INJ 2,500 MG in SODIUM CHLORID 0.9% 500 ML INJ 500 ML IV ONE (19:00)
[2017-11-07 20:00] VITALS: BP 148/93; PULSE 116; RESP 18; TEMP 100.2; O2SAT 97
[2017-11-07] MEDS: INSULIN DETEMIR 100 UNITS/ML VIAL SQ SCH (22:37)
[2017-11-07] MEDS: GABAPENTIN 300 MG CAP PO SCH (22:38)
[2017-11-08] VITALS (8 sets, daily range): BP systolic 118–157; BP diastolic 64–82; PULSE 105–122; RESP 16–20; TEMP 97.7–102.3; O2SAT 92–97
[2017-11-08] MEDS: ACETAMINOPHEN 325 MG TAB PO PRN (00:38)
[2017-11-08] MEDS: ACETAMINOPHEN/HYDROcodone 325 MG/10 MG TAB PO PRN ×4 (04:47→23:03)
[2017-11-08] MEDS: SODIUM CHLOR 0.9% 1000 ML INJ 1,000 ML IV SCH ×2 (06:07→15:12)
[2017-11-08 08:07] LABS: BASOPHIL # 0.1 TH/MM3 (0-0.2); BASOPHIL % 0.5 % (0.0-2.0); EOSINOPHIL % 0.3 % (0.0-4.0); HEMATOCRIT 35.3 % (35.0-46.0); HEMOGLOBIN 11.4 GM/DL (11.6-15.3); LYMPH % 4.5 % (9.0-44.0); LYMPHOCYTE # 0.7 TH/MM3 (1.0-4.8); MEAN CORPUSCULAR HEMOGLOBIN 29.8 PG (27.0-34.0); MEAN CORPUSCULAR HGB CONC 32.4 % (32.0-36.0); MEAN PLATELET VOLUME 7.7 FL (7.0-11.0); MONO % 7.2 % (0.0-8.0); MONOCYTE # 1.1 TH/MM3 (0-0.9); NEUT % 87.5 % (16.0-70.0); PLATELET COUNT 326 TH/MM3 (150-450); RED BLOOD COUNT 3.84 MIL/MM3 (4.00-5.30); RED CELL DISTRIBUTION WIDTH 15.2 % (11.6-17.2); WHITE BLOOD COUNT 14.8 TH/MM3 (4.0-11.0)
[2017-11-08 08:36] LABS: ALBUMIN 2.6 GM/DL (3.4-5.0); AST (GOT) 36 U/L (15-37); BICARBONATE 26.6 MEQ/L (21.0-32.0); BLOOD UREA NITROGEN 10 MG/DL (7-18); CALCIUM 8.6 MG/DL (8.5-10.1); CHLORIDE 104 MEQ/L (98-107); CREATININE 0.96 MG/DL (0.50-1.00); GLOMERULAR FILTRATION RATE 74 ML/MIN (>89); GLUCOSE,RANDOM 177 MG/DL (74-106); MAGNESIUM 1.9 MG/DL (1.5-2.5); SODIUM (NA) 141 MEQ/L (136-145)
[2017-11-08 08:39] LABS: ALKALINE PHOSPHATASE 131 U/L (45-117); ALT (GPT) 68 U/L (10-53); TOTAL BILIRUBIN ADULT 0.4 MG/DL (0.2-1.0); TOTAL PROTEIN 7.4 GM/DL (6.4-8.2)
[2017-11-08] MEDS: metFORMIN HCL 500 MG TAB PO SCH ×2 (09:00→17:48)
[2017-11-08] MEDS ORDERED: VANCOMYCIN 1,500 MG/NS 500 ML IV ONE ×2 (09:00)
[2017-11-08] MEDS: FUROSEMIDE 40 MG TAB PO SCH (09:00)
[2017-11-08] MEDS: SODIUM CHLORIDE 0.9% FLUSH 10 ML FLUSH IV FLUSH SCH ×2 (09:00→20:20)
[2017-11-08] MEDS: LEVOFLOXACIN 750 MG PREMIX INJ 150 ML IV SCH (09:00)
--- NOTE | 2017-11-08 09:28 | HHI.PR ---
Subjective Remarks f/u; sepsis/ right breast cellulitis still with fever spikes; T max 102.3. has mild pain to the right breast. no other complaints. Objective Vitals Vital Signs Date Time Temp Pulse Resp B/P (MAP) Pulse Ox O2 Delivery O2 Flow Rate FiO2 11/08/17 05:51 105 11/08/17 04:00 Room Air 11/08/17 04:00 98.6 107 16 118/70 (86) 97 11/08/17 00:00 102.3 122 18 131/64 (86) 96 11/08/17 00:00 Room Air 11/07/17 20:00 Room Air 11/07/17 20:00 100.2 116 18 148/93 (111) 97 11/07/17 16:47 98.1 108 18 112/62 (79) 93 11/07/17 12:35 101.1 120 18 131/70 (90) 96 I/O 11/07/17 11/07/17 11/07/17 11/08/17 11/08/17 11/08/17 07:00 15:00 23:00 07:00 15:00 23:00 Intake Total 150 ml 1934 ml Balance 150 ml 1934 ml Intake Oral 780 ml IV Total 150 ml 1154 ml # Voids 3 3 Result Diagram: 11/08/17 0752 11/08/17 0752 Imaging Last Impressions Breast Ultrasound 11/06/17 0000 Signed Impressions: Service Date/Time: Monday, November 06, 2017 22:01 - CONCLUSION: This examination was performed to evaluate for any abscess. No abscess is observed. Isolated sonographic evaluation of the breast without mammographic correlate is exceedingly insensitive for detection of malignancy. Correlation with mammography is needed. Jelani Castelan Jr., MD Objective Remarks GENERAL: This is a well-nourished, well-developed patient, in no apparent distress. CARDIOVASCULAR: Regular rate and regular rhythm without murmurs, gallops, or rubs. RESPIRATORY: Clear to auscultation. Breath sounds equal bilaterally. No wheezes , rales, or rhonchi. breast; mild tenderness and skin discoloration of the right breast- GASTROINTESTINAL: Abdomen soft, non-tender, nondistended. Normal, active bowel sounds MUSCULOSKELETAL: Extremities without clubbing, cyanosis, or edema. NEURO: Alert & Oriented x4 to person, place, time, situation. Moves all ext x4 Medications and IVs Inpatient Medications Acetaminophen (Tylenol) 650 mg Q4H PRN PO FEVER Last administered on 11/08/17at 00:38; Start 11/07/17 at 13:15 Acetaminophen/ Hydrocodone Bitart ([place] 5-325 Mg) 1 tab Q4H PRN PO PAIN 1-5; Start 11/07/17 at 00:45 Acetaminophen/ Hydrocodone Bitart ([place] 10-325 Mg) 1 tab Q4H PRN PO PAIN 6-10 Last administered on 11/08/17at 04:47; Start 11/07/17 at 00:45 Albuterol/ Ipratropium (Duoneb Neb) 1 ampule Q4HR NEB PRN NEB SHORTNESS OF BREATH; Start 11/07/17 at 00:45 Dextrose (D50w (Vial) Inj) 50 ml UNSCH PRN IV PUSH HYPOGLYCEMIA-SEE COMMENTS; Start 11/07/17 at 12:30 Diphenhydramine HCl (Benadryl Inj) 50 mg ONCE ONCE IV PUSH Last administered on 11/06/17at 22:42; Start 11/06/17 at 22:00; Stop 11/06/17 at 22:04; Status DC Furosemide (Lasix) 40 mg DAILY PO Last administered on 11/07/17at 08:19; Start 11/07/17 at 09:00 Gabapentin (Neurontin) 600 mg HS PO Last administered on 11/07/17at 22:38; Start 11/07/17 at 21:00 Glucagon (Glucagon Inj) 1 mg UNSCH PRN OTHER HYPOGLYCEMIA-SEE COMMENTS; Start 11/07/17 at 12:30 Ibuprofen (Motrin) 600 mg ONCE ONCE PO ; Start 11/06/17 at 22:00; Stop at 22:04; Status DC Insulin Aspart (NovoLOG SUPPLEMENTAL SCALE) 1 ACHS SLIDING SCALE SQ Last administered on 11/07/17at 22:37; Start 11/07/17 at 17:00 Insulin Detemir (Levemir Inj) 5 units Q12HR SQ Last administered on 11/07/17at 22:37; Start 11/07/17 at 21:00 Insulin Human Isoph/Insulin Regular (NovoLIN 70/30 INJ) 50 units DAILY SQ Last administered on 11/07/17at 08:20; Start 11/07/17 at 09:00 Insulin Human Regular (NovoLIN R INJ) 3 units STAT ONCE IV PUSH Last administered on 11/06/17at 23:14; Start 11/06/17 at 22:45; Stop 11/06/17 at 22:46 ; Status DC Levofloxacin/ Dextrose 150 ml @ 100 mls/hr Q24H IV Last administered on at 08:21; Start 11/07/17 at 09:00 Losartan Potassium (Cozaar) 50 mg DAILY PO Last administered on 11/07/17at 10:20 ; Start 11/07/17 at 09:00 Metformin HCl (Glucophage) 1,000 mg BIDPC PO Last administered on 11/07/17at 18: 14; Start 11/07/17 at 09:00 Metoclopramide HCl (Reglan Inj) 10 mg ONCE ONCE IV PUSH Last administered on at 22:42; Start 11/06/17 at 22:00; Stop 11/06/17 at 22:04; Status DC Miscellaneous Information SPECIFIC LAB TO BE CINDI... ONCE ONCE .XX ; Start 11/09 at 08:45; Stop 11/09/17 at 08:46 Naloxone HCl (Narcan Inj) 0.4 mg UNSCH PRN IV PUSH SEE LABEL COMMENTS; Start at 22:45 Patient Own Medication PT OWN MED: Tabl... DAILY PO ; Start 11/07/17 at 09:00; Status Future Hold Pharmacy Profile Note 0 ml @ 0 mls/hr UNSCH OTHER ; Start 11/07/17 at 17:30 Piperacillin Sod/ Tazobactam Sod 100 ml @ 200 mls/hr ONCE ONCE IV Last administered on 11/06/17at 22:42; Start 11/06/17 at 22:00; Stop 11/06/17 at 22:29 ; Status DC Potassium Chloride (KCl) 8 meq DAILY PO Last administered on 11/07/17at 09:00; Start 11/07/17 at 09:00 Sodium Chloride 1,000 ml @ 125 mls/hr Q8H IV Last administered on 11/08/17at 06 :07; Start 11/07/17 at 04:15 Sodium Chloride (NS Flush) 2 ml BID IV FLUSH Last administered on 11/07/17at 10: 25; Start 11/07/17 at 09:00 Vancomycin HCl 1500 mg/Sodium Chloride 515 ml @ 257.5 mls/ hr Q12HR ONCE IV ; Start 11/08/17 at 09:00; Stop 11/08/17 at 10:59 Vancomycin HCl 2500 mg/Sodium Chloride 525 ml @ 250 mls/hr NOW ONCE IV Last administered on 11/07/17at 19:00; Start 11/07/17 at 19:00; Stop 11/07/17 at 21:05 ; Status DC Vancomycin/Sodium Chloride 200 ml @ 200 mls/hr Q12H IV ; Start 11/07/17 at 17: 30; Stop 11/07/17 at 18:38; Status DC A/P Problem List: (1) Sepsis ICD Code: A41.9 - Sepsis, unspecified organism (2) Cellulitis of right breast ICD Code: N61.0 - Mastitis without abscess (3) Hypertension ICD Code: I10 - Essential (primary) hypertension (4) Diabetes ICD Code: E11.9 - Type 2 diabetes mellitus without complications (5) Leukocytosis ICD Code: D72.829 - Elevated white blood cell count, unspecified Assessment and Plan Sepsis by criteria, heart rate 102, WBC 19.0 source Right breast cellulitis with leukocytosis, lactic acid 2.1 on presentation. Breast ultrasound reviewed and shows no evidence of an abscess - continue IV antibiotics; Vanco and Levaquin - ID consult pending,. Diabetes -hold insulin 70/30. -continue levemir and accu-check with SSI. -continue to monitor and adjust the regimen as needed. Hypertension, chronic, currently controlled -Resume home medications and monitor vitals The patient currently on losartan. CKD, creatinine 1.2 at baseline -Resumed home medications -Avoid nephrotoxins Hypokalemia; will replace and monitor. Discharge Planning patient is still febrile. awaiting ID evaluation. not ready for discharge yet. Problem Qualifiers (1) Sepsis: Qualified Codes: A41.9 - Sepsis, unspecified organism (2) Diabetes: Qualified Codes: E11.65 - Type 2 diabetes mellitus with hyperglycemia; Z79.4 - [facility] (current) use of insulin (3) Leukocytosis: Qualified Codes: D72.829 - Elevated white blood cell count, unspecified Benton Ruiz MD Nov 08, 2017 09:28
[2017-11-08] MEDS ORDERED: POTASSIUM CHLORIDE 10 MEQ CONTROLLED RELEASE TAB PO ONE (09:30)
[2017-11-08] MEDS: LOSARTAN 50 MG TAB PO SCH (10:12)
[2017-11-08] MEDS: INSULIN ASPART SUPPLEMENTAL SCALE SQ SCH ×4 (10:21→23:04)
[2017-11-08] MEDS: INSULIN DETEMIR 100 UNITS/ML VIAL SQ SCH ×2 (10:22→23:04)
[2017-11-08] MEDS: POTASSIUM CHLORIDE 8 MEQ CAP PO SCH (10:22)
[2017-11-08] MEDS ORDERED: VANCOMYCIN INJ 2,000 MG in SODIUM CHLORID 0.9% 500 ML INJ 500 ML IV SCH (15:00)
[2017-11-08 16:36] LABS: HEMOGLOBIN A1C 8.4 % (4.3-6.0)
--- NOTE | 2017-11-08 18:08 | PD.ID.CON ---
History of Present Illness Service ID Consult Requested By Janessa Sousa/ Reason for Consult Evaluation and management of sepsis, right breast cellulitis possible abscess Primary Care Physician Non-Staff Diagnoses: History of Present Illness Ms. Sanchez is a 52-year-old female with past medical history significant for diabetes, diabetic neuropathy, hypertension. There is background patient presents to the emergency department with complaints of painful lump under her right breast as well as fever and chills. Patient reports she has not had a mammogram in over 2 years now. She denies any discharge from the nipple she denies any change in the shape of her nipple. She reports wearing underwire bras washing the bar every other use. She thinks she may have abraded her breast skin during cleaning. Patient reports she noticed a lump under her right breast approximately a week prior to admission. She then noticed that this erythema started spreading to the outer quadrants of her right breast. She reports the pain as throbbing in nature 8 out of 10 worse with movement. She reports fever and chills associated with nausea. The only other time she has had an infection was in the right foot with similar symptoms when she was admitted. Patient is a known diabetic she is currently on insulin at home and her blood sugars are not controlled. Infectious disease is consulted for evaluation and management of sepsis, right breast cellulitis possible abscess. Review of Systems Constitutional: COMPLAINS OF: Diaphoretic episodes, Fever, Chills, DENIES: Fatigue, Weight gain, Weight loss, Dizziness, Change in appetite, Night Sweats Endocrine: DENIES: Abnorml menstrual pattern, Heat/cold intolerance, Polydipsia , Polyuria, Polyphagia Eyes: DENIES: Blurred vision, Diplopia, Eye inflammation, Eye pain, Vision loss , Photosensitivity, Double Vision Ears, nose, mouth, throat: DENIES: Tinnitus, Hearing loss, Vertigo, Nasal discharge, Oral lesions, Throat pain, Hoarseness, Ear Pain, Running Nose, Epistaxis, Sinus Pain, Toothache, Odynophagia Respiratory: DENIES: Apneas, Cough, Snoring, Wheezing, Hemoptysis, Sputum production, Shortness of breath Cardiovascular: DENIES: Chest pain, Palpitations, Syncope, Dyspnea on Exertion , PND, Lower Extremity Edema, Orthopnea, Claudication Gastrointestinal: DENIES: Abdominal pain, Black stools, Bloody stools, Constipation, Diarrhea, Nausea, Vomiting, Difficulty Swallowing, Anorexia Genitourinary: DENIES: Abnormal vaginal bleeding, Dysmenorrhea, Dyspareunia, Sexual dysfunction, Urinary frequency, Urinary incontinence, Urgency, Hematuria , Dysuria, Nocturia, Vaginal discharge Musculoskeletal: DENIES: Joint pain, Muscle aches, Stiffness, Joint Swelling, Back pain, Neck pain Integumentary: COMPLAINS OF: Breast skin changes, DENIES: Abnormal pigmentation , Pruritus, Rash, Nail changes, Breast masses, Nipple discharge Hematologic/lymphatic: DENIES: Bruising, Lymphadenopathy Immunologic/allergic: DENIES: Eczema, Urticaria Neurologic: DENIES: Abnormal gait, Headache, Localized weakness, Paresthesias, Seizures, Speech Problems, Tremor, Poor Balance Psychiatric: DENIES: Anxiety, Confusion, Mood changes, Depression, Hallucinations, Agitation, Suicidal Ideation, Homicidal Ideation, Delusions Except as stated in HPI: all other systems reviewed are Neg Past Family Social History Allergies: Coded Allergies: No Known Allergies (Verified Allergy, Unknown, 11/06/17) Past Medical History DM HTN Diabetic retinopathy Diabetic neuropathy Past Surgical History Right foot I&D Reported Medications Reported Meds & Active Scripts Active Reported Furosemide 40 Mg Tab 40 Mg PO DAILY Gabapentin 600 Mg Tab 600 Mg PO HS Potassium Chloride ER (Potassium Chloride) 8 Meq Cap 8 Meq PO DAILY Farxiga (Dapagliflozin) 10 Mg Tab 10 Mg PO DAILY Cozaar (Losartan Potassium) 50 Mg Tab 40 Mg PO DAILY Metformin (Metformin HCl) 1,000 Mg Tab 1,000 Mg PO BIDPC With meals Novolin 70-30 Inj (Insulin Human Isoph/Insulin Regular) 1,000 Unit/10 Ml Vial 45 Units SQ HS Novolin 70-30 Inj (Insulin Human Isoph/Insulin Regular) 1,000 Unit/10 Ml Vial 50 Units SQ DAILY Novolin 70-30 Inj (Insulin Human Isoph/Insulin Regular) 1,000 Unit/10 Ml Vial 1 Units SQ Active Ordered Medications Current Medications Medications (Trade) Dose Ordered Sig/Matthew Route Start Time Stop Time Status Last Admin (NS Flush) 2 ml UNSCH PRN IV FLUSH 11/06/17 22:45 (NS Flush) 2 ml BID IV FLUSH 11/07/17 09:00 11/07/17 10:25 (Narcan Inj) 0.4 mg UNSCH PRN IV PUSH 11/06/17 22:45 Levofloxacin/ Dextrose 150 ml @ 100 mls/hr Q24H IV 11/07/17 09:00 11/07/17 08:21 ([place] 5-325 Mg) 1 tab Q4H PRN PO 11/07/17 00:45 ([place] 10-325 Mg) 1 tab Q4H PRN PO 11/07/17 00:45 11/08/17 14:37 (Duoneb Neb) 1 ampule Q4HR NEB PRN NEB 11/07/17 00:45 (Lasix) 40 mg DAILY PO 11/07/17 09:00 11/07/17 08:19 (Neurontin) 600 mg HS PO 11/07/17 21:00 11/07/17 22:38 (NovoLIN 70/30 INJ) 45 units HS SQ 11/07/17 21:00 Future Hold (NovoLIN 70/30 INJ) 50 units DAILY SQ 11/07/17 09:00 Future Hold 11/07/17 08:20 (Cozaar) 50 mg DAILY PO 11/07/17 09:00 11/08/17 10:12 (Glucophage) 1,000 mg BIDPC PO 11/07/17 09:00 11/07/17 18:14 (KCl) 8 meq DAILY PO 11/07/17 09:00 11/08/17 10:22 Patient Own Medication PT OWN MED: Tabl... DAILY PO 11/07/17 09:00 Future Hold Sodium Chloride 1,000 ml @ 125 mls/hr Q8H IV 11/07/17 04:15 11/08/17 15:12 (D50w (Vial) Inj) 50 ml UNSCH PRN IV PUSH 11/07/17 12:30 (Glucagon Inj) 1 mg UNSCH PRN OTHER 11/07/17 12:30 (NovoLOG SUPPLEMENTAL SCALE) 1 ACHS SLIDING SCALE SQ 11/07/17 17:00 11/08/17 17:50 (Tylenol) 650 mg Q4H PRN PO 11/07/17 13:15 11/08/17 00:38 (Levemir Inj) 5 units Q12HR SQ 11/07/17 21:00 11/08/17 10:22 Pharmacy Profile Note 0 ml @ 0 mls/hr UNSCH OTHER 11/07/17 17:30 Miscellaneous Information SPECIFIC LAB TO BE CINDI... ONCE ONCE .XX 11/09/17 08:45 11/09/17 08:46 Vancomycin HCl 2000 mg/Sodium Chloride 520 ml @ 250 mls/hr Q12H IV 11/08/17 15:00 11/08/17 15:12 Miscellaneous Information SPECIFIC LAB TO BE DRAWN:VANCOMYCIN TROUGH DATE TO... ONCE ONCE .XX 11/10/17 02:45 11/10/17 02:46 Family History Reviewed and noncontributory to infectious disease problem Social History lives in [facility]. Denies alcohol,illicit drugs. Smokes 1/2 ppd : counseled pt for 15 mins. Physical Exam Vital Signs Vital Signs Date Time Temp Pulse Resp B/P (MAP) Pulse Ox O2 Delivery O2 Flow Rate FiO2 11/08/17 08:00 98.0 106 20 133/80 (97) 96 11/08/17 05:51 105 11/08/17 04:00 Room Air 11/08/17 04:00 98.6 107 16 118/70 (86) 97 11/08/17 00:00 102.3 122 18 131/64 (86) 96 11/08/17 00:00 Room Air 11/07/17 20:00 Room Air 11/07/17 20:00 100.2 116 18 148/93 (111) 97 Physical Exam GENERAL: Obese, well-developed patient, in no apparent distress. SKIN: No rashes, ecchymoses or lesions. Cool and dry. HEAD: Atraumatic. Normocephalic. No temporal or scalp tenderness. EYES: Pupils equal round and reactive. Extraocular motions intact. No scleral icterus. No injection or drainage. ENT: Nose without bleeding, purulent drainage or septal hematoma. Throat without erythema, tonsillar hypertrophy or exudate. Uvula midline. Airway patent. NECK: Trachea midline. No JVD or lymphadenopathy. Supple, nontender, no meningeal signs. CARDIOVASCULAR: Regular rate and rhythm without murmurs, gallops, or rubs. RESPIRATORY: Clear to auscultation. Breath sounds equal bilaterally. No wheezes , rales, or rhonchi. GASTROINTESTINAL: Abdomen soft, non-tender, nondistended. No hepato-splenomegaly , or palpable masses. No guarding. MUSCULOSKELETAL: Extremities without clubbing, cyanosis, or edema. No joint tenderness, effusion, or edema noted. No calf tenderness. Negative Homans sign bilaterally. Right breast larger than left marsha outer quadrants. Right outer quadrants with erythema, induration and tenderness. Significant moisture noted in the breast folds. No nipple discharge. Shape of nipple normal. NEUROLOGICAL: Awake and alert. Non focal exam. Psych cooperative IV line sites with no e.o infection. Laboratory Laboratory Tests Test 11/08/17 07:52 White Blood Count 14.8 Red Blood Count 3.84 Hemoglobin 11.4 Hematocrit 35.3 Mean Corpuscular Volume 92.0 Mean Corpuscular Hemoglobin 29.8 Mean Corpuscular Hemoglobin Concent 32.4 Red Cell Distribution Width 15.2 Platelet Count 326 Mean Platelet Volume 7.7 Neutrophils (%) (Auto) 87.5 Lymphocytes (%) (Auto) 4.5 Monocytes (%) (Auto) 7.2 Eosinophils (%) (Auto) 0.3 Basophils (%) (Auto) 0.5 Neutrophils # (Auto) 13.0 Lymphocytes # (Auto) 0.7 Monocytes # (Auto) 1.1 Eosinophils # (Auto) 0.0 Basophils # (Auto) 0.1 CBC Comment DIFF FINAL Differential Comment Blood Urea Nitrogen 10 Creatinine 0.96 Random Glucose 177 Total Protein 7.4 Albumin 2.6 Calcium Level 8.6 Phosphorus Level 3.0 Magnesium Level 1.9 Alkaline Phosphatase 131 Aspartate Amino Transf (AST/SGOT) 36 Alanine Aminotransferase (ALT/SGPT) 68 Total Bilirubin 0.4 Sodium Level 141 Potassium Level 3.2 Chloride Level 104 Carbon Dioxide Level 26.6 Anion Gap 10 Estimat Glomerular Filtration Rate 74 Hemoglobin A1c 8.4 Lactic Acid Level 1.6 Date/Time Source Procedure Growth Status 11/06/17 22:10 Blood Peripheral Aerobic Blood Culture - Preliminary NO GROWTH IN 2 DAYS Resulted 11/06/17 22:10 Blood Peripheral Anaerobic Blood Culture - Preliminary NO GROWTH IN 2 DAYS Resulted 11/06/17 20:46 Nasal Washing Influenza Types A,B Antigen (SRINI) - Final NEGATIVE FOR FLU A AND B ANTIGEN.... Complete Result Diagram: 11/08/17 0752 11/08/17 0752 Imaging Last Impressions Breast Ultrasound 11/06/17 0000 Signed Impressions: Service Date/Time: Monday, November 06, 2017 22:01 - CONCLUSION: This examination was performed to evaluate for any abscess. No abscess is observed. Isolated sonographic evaluation of the breast without mammographic correlate is exceedingly insensitive for detection of malignancy. Correlation with mammography is needed. Jelani Castelan Jr., MD Assessment and Plan Assessment and Plan Sepsis present on admission Right breast cellulitis possible abscess Diabetes uncontrolled Diabetic neuropathy Obesity BMI 41.7 Recommendations: Discontinue vancomycin IV(persistent fever possible drug fever) Start Ancef IV will assess response to MSSA treatment Discontinue Levaquin for now Start Diflucan oral Start nystatin cream local application Patient to shower daily Nursing instructions:Wipe dry the breast folds. On right breast fold apply nystatin cream after wiping dry the fold. Then place [place] paper towels in entire skin folds as long folds. Then place dry towels to raise the right breast. Will assess clinical response in a.m. If no significant improvement will consider surgical consult. Follow cultures Follow clinically. d/w pt and RN. d/w pt to get outpt mammogram after breast infection calms down. Connie Rojas MD Nov 08, 2017 18:08
[2017-11-08] MEDS: GABAPENTIN 300 MG CAP PO SCH (20:20)
[2017-11-08] MEDS: FLUCONAZOLE 200 MG TAB PO SCH (20:20)
[2017-11-08] MEDS: ceFAZolin 2 GM PREMIX 50 ML IV SCH (20:20)
[2017-11-09] VITALS (11 sets, daily range): BP systolic 119–157; BP diastolic 72–84; PULSE 102–113; RESP 18–20; TEMP 97.8–99.7; O2SAT 91–100
[2017-11-09] MEDS: SODIUM CHLOR 0.9% 1000 ML INJ 1,000 ML IV SCH ×5 (00:05→20:46)
[2017-11-09] MEDS: NYSTATIN 100,000 UNIT/GM CREAM 15 GM TOPICAL SCH ×4 (00:09→17:55)
[2017-11-09] MEDS: ceFAZolin 2 GM PREMIX 50 ML IV SCH ×3 (04:00→20:45)
[2017-11-09] MEDS: INSULIN ASPART SUPPLEMENTAL SCALE SQ SCH ×5 (08:00→20:46)
[2017-11-09] MEDS: LOSARTAN 50 MG TAB PO SCH (08:30)
[2017-11-09] MEDS: POTASSIUM CHLORIDE 8 MEQ CAP PO SCH (08:31)
[2017-11-09] MEDS: FUROSEMIDE 40 MG TAB PO SCH (08:32)
[2017-11-09] MEDS: SODIUM CHLORIDE 0.9% FLUSH 10 ML FLUSH IV FLUSH SCH ×2 (08:32→20:46)
[2017-11-09] MEDS: metFORMIN HCL 500 MG TAB PO SCH ×3 (08:33→18:00)
[2017-11-09] MEDS: INSULIN DETEMIR 100 UNITS/ML VIAL SQ SCH (08:34)
[2017-11-09] MEDS ORDERED: PHARMACY ORDERED LAB ONE (08:45)
--- NOTE | 2017-11-09 09:42 | HHI.PR ---
Subjective Remarks in no acute distress. pain to the right breast is better. T max 100.4. Objective Vitals Vital Signs Date Time Temp Pulse Resp B/P (MAP) Pulse Ox O2 Delivery O2 Flow Rate FiO2 11/09/17 08:35 Room Air 11/09/17 05:37 Room Air 11/09/17 05:37 98.4 111 18 142/78 (99) 100 11/09/17 04:18 108 11/09/17 00:34 110 11/09/17 00:32 Room Air 11/09/17 00:32 98.8 113 18 119/72 (88) 91 11/08/17 21:20 100.4 115 18 132/82 (99) 92 11/08/17 21:20 Room Air 11/08/17 20:00 114 11/08/17 16:00 98.1 109 20 157/72 (100) 97 11/08/17 12:00 97.7 106 20 128/81 (97) 96 I/O 11/08/17 11/08/17 11/08/17 11/09/17 11/09/17 11/09/17 07:00 15:00 23:00 07:00 15:00 23:00 Intake Total 1934 ml 770 ml 610 ml Output Total 2250 ml Balance 1934 ml 770 ml -1640 ml Intake Oral 780 ml 720 ml 610 ml IV Total 1154 ml 50 ml Output Urine Total 2250 ml # Voids 3 4 # Bowel Movements 0 0 Result Diagram: 11/08/17 0752 11/08/17 0752 Imaging Last Impressions Breast Ultrasound 11/06/17 0000 Signed Impressions: Service Date/Time: Monday, November 06, 2017 22:01 - CONCLUSION: This examination was performed to evaluate for any abscess. No abscess is observed. Isolated sonographic evaluation of the breast without mammographic correlate is exceedingly insensitive for detection of malignancy. Correlation with mammography is needed. Jelani Castelan Jr., MD Objective Remarks GENERAL: This is a well-nourished, well-developed patient, in no apparent distress. CARDIOVASCULAR: Regular rate and regular rhythm without murmurs, gallops, or rubs. RESPIRATORY: Clear to auscultation. Breath sounds equal bilaterally. No wheezes , rales, or rhonchi. breast; mild tenderness and skin discoloration of the right breast- GASTROINTESTINAL: Abdomen soft, non-tender, nondistended. Normal, active bowel sounds MUSCULOSKELETAL: Extremities without clubbing, cyanosis, or edema. NEURO: Alert & Oriented x4 to person, place, time, situation. Moves all ext x4 Medications and IVs Inpatient Medications Acetaminophen (Tylenol) 650 mg Q4H PRN PO FEVER Last administered on 11/08/17at 00:38; Start 11/07/17 at 13:15 Acetaminophen/ Hydrocodone Bitart ([place] 5-325 Mg) 1 tab Q4H PRN PO PAIN 1-5; Start 11/07/17 at 00:45 Acetaminophen/ Hydrocodone Bitart ([place] 10-325 Mg) 1 tab Q4H PRN PO PAIN 6-10 Last administered on 11/08/17at 23:03; Start 11/07/17 at 00:45 Albuterol/ Ipratropium (Duoneb Neb) 1 ampule Q4HR NEB PRN NEB SHORTNESS OF BREATH; Start 11/07/17 at 00:45 Cefazolin Sodium/ Dextrose 50 ml @ 100 mls/hr Q8H IV Last administered on 11/09at 04:00; Start 11/08/17 at 20:00 Dextrose (D50w (Vial) Inj) 50 ml UNSCH PRN IV PUSH HYPOGLYCEMIA-SEE COMMENTS; Start 11/07/17 at 12:30 Diphenhydramine HCl (Benadryl Inj) 50 mg ONCE ONCE IV PUSH Last administered on 11/06/17at 22:42; Start 11/06/17 at 22:00; Stop 11/06/17 at 22:04; Status DC Fluconazole (Diflucan) 200 mg Q24H PO Last administered on 11/08/17at 20:20; Start 11/08/17 at 20:00 Furosemide (Lasix) 40 mg DAILY PO Last administered on 11/09/17at 08:32; Start 11/07/17 at 09:00 Gabapentin (Neurontin) 600 mg HS PO Last administered on 11/08/17at 20:20; Start 11/07/17 at 21:00 Glucagon (Glucagon Inj) 1 mg UNSCH PRN OTHER HYPOGLYCEMIA-SEE COMMENTS; Start 11/07/17 at 12:30 Ibuprofen (Motrin) 600 mg ONCE ONCE PO ; Start 11/06/17 at 22:00; Stop at 22:04; Status DC Insulin Aspart (NovoLOG SUPPLEMENTAL SCALE) 1 ACHS SLIDING SCALE SQ Last administered on 11/09/17at 08:00; Start 11/07/17 at 17:00 Insulin Detemir (Levemir Inj) 5 units Q12HR SQ Last administered on 11/09/17at 08:34; Start 11/07/17 at 21:00 Insulin Human Isoph/Insulin Regular (NovoLIN 70/30 INJ) 50 units DAILY SQ Last administered on 11/07/17at 08:20; Start 11/07/17 at 09:00; Status Future Hold Insulin Human Regular (NovoLIN R INJ) 3 units STAT ONCE IV PUSH Last administered on 11/06/17at 23:14; Start 11/06/17 at 22:45; Stop 11/06/17 at 22:46 ; Status DC Levofloxacin/ Dextrose 150 ml @ 100 mls/hr Q24H IV Last administered on at 08:21; Start 11/07/17 at 09:00; Stop 11/08/17 at 18:08; Status DC Losartan Potassium (Cozaar) 50 mg DAILY PO Last administered on 11/09/17at 08:30 ; Start 11/07/17 at 09:00 Metformin HCl (Glucophage) 1,000 mg BIDPC PO Last administered on 11/09/17at 08: 33; Start 11/07/17 at 09:00 Metoclopramide HCl (Reglan Inj) 10 mg ONCE ONCE IV PUSH Last administered on at 22:42; Start 11/06/17 at 22:00; Stop 11/06/17 at 22:04; Status DC Naloxone HCl (Narcan Inj) 0.4 mg UNSCH PRN IV PUSH SEE LABEL COMMENTS; Start at 22:45 Nystatin (Mycostatin Cream) 1 applic Q6HR TOPICAL Last administered on at 06:00; Start 11/09/17 at 00:00 Patient Own Medication PT OWN MED: Tabl... DAILY PO ; Start 11/07/17 at 09:00; Status Future Hold Pharmacy Profile Note 0 ml @ 0 mls/hr UNSCH OTHER ; Start 11/07/17 at 17:30; Stop 11/08/17 at 18:08; Status DC Piperacillin Sod/ Tazobactam Sod 100 ml @ 200 mls/hr ONCE ONCE IV Last administered on 11/06/17at 22:42; Start 11/06/17 at 22:00; Stop 11/06/17 at 22:29 ; Status DC Potassium Chloride (KCl) 30 meq ONCE ONCE PO Last administered on 11/08/17at 10 :22; Start 11/08/17 at 09:30; Stop 11/08/17 at 09:31; Status DC Sodium Chloride 1,000 ml @ 125 mls/hr Q8H IV Last administered on 11/09/17at 00 :05; Start 11/07/17 at 04:15 Sodium Chloride (NS Flush) 2 ml BID IV FLUSH Last administered on 11/08/17at 20: 20; Start 11/07/17 at 09:00 Vancomycin HCl 1500 mg/Sodium Chloride 515 ml @ 257.5 mls/ hr Q12HR ONCE IV ; Start 11/08/17 at 09:00; Stop 11/08/17 at 10:59; Status DC Vancomycin HCl 2000 mg/Sodium Chloride 520 ml @ 250 mls/hr Q12H IV Last administered on 11/08/17at 15:12; Start 11/08/17 at 15:00; Stop 11/08/17 at 18:08 ; Status DC Vancomycin HCl 2500 mg/Sodium Chloride 525 ml @ 250 mls/hr NOW ONCE IV Last administered on 11/07/17at 19:00; Start 11/07/17 at 19:00; Stop 11/07/17 at 21:05 ; Status DC Vancomycin/Sodium Chloride 200 ml @ 200 mls/hr Q12H IV ; Start 11/07/17 at 17: 30; Stop 11/07/17 at 18:38; Status DC A/P Problem List: (1) Sepsis ICD Code: A41.9 - Sepsis, unspecified organism (2) Cellulitis of right breast ICD Code: N61.0 - Mastitis without abscess (3) Hypertension ICD Code: I10 - Essential (primary) hypertension (4) Diabetes ICD Code: E11.9 - Type 2 diabetes mellitus without complications (5) Leukocytosis ICD Code: D72.829 - Elevated white blood cell count, unspecified Assessment and Plan Sepsis due to Right breast cellulitis Breast ultrasound reviewed and shows no evidence of an abscess - ID consult appreciated; started on Ancef and Fluconazole Diabetes -hold insulin 70/30. -increase levemir to 8 units subq bid- continue accu-check with SSI. -continue to monitor and adjust the regimen as needed. Hypertension, chronic, currently controlled -Resume home medications and monitor vitals The patient currently on losartan. CKD, creatinine 1.2 at baseline -Resumed home medications -Avoid nephrotoxins Hypokalemia;replaced. Discharge Planning not ready for discharge yet. Problem Qualifiers (1) Sepsis: Qualified Codes: A41.9 - Sepsis, unspecified organism (2) Diabetes: Qualified Codes: E11.65 - Type 2 diabetes mellitus with hyperglycemia; Z79.4 - terminal gauger supervisor (current) use of insulin (3) Leukocytosis: Qualified Codes: D72.829 - Elevated white blood cell count, unspecified Benton Ruiz MD Nov 09, 2017 09:42
--- NOTE | 2017-11-09 12:59 | HHI.IDPN ---
Subjective Subjective Remarks Ms. Sanchez is a 52-year-old female with past medical history significant for diabetes, diabetic neuropathy, hypertension. There is background patient presents to the emergency department with complaints of painful lump under her right breast as well as fever and chills. Patient reports she has not had a mammogram in over 2 years now. She denies any discharge from the nipple she denies any change in the shape of her nipple. She reports wearing underwire bras washing the bar every other use. She thinks she may have abraded her breast skin during cleaning. Patient reports she noticed a lump under her right breast approximately a week prior to admission. She then noticed that this erythema started spreading to the outer quadrants of her right breast. She reports the pain as throbbing in nature 8 out of 10 worse with movement. She reports fever and chills associated with nausea. The only other time she has had an infection was in the right foot with similar symptoms when she was admitted. Patient is a known diabetic she is currently on insulin at home and her blood sugars are not controlled. Infectious disease is consulted for evaluation and management of sepsis, right breast cellulitis possible abscess. Overnight events reviewed Fevers overnight. No rash No diarrhea Still complains of significant breast tenderness and feels mass. Antibiotics Ancef IV Diflucan oral Lines Line sites with no e.o infection. Past Medical History reviewed. Allergies: Coded Allergies: No Known Allergies (Verified Allergy, Unknown, 11/06/17) Objective . Vital Signs Date Time Temp Pulse Resp B/P (MAP) Pulse Ox O2 Delivery O2 Flow Rate FiO2 11/09/17 11:05 106 11/09/17 08:35 Room Air 11/09/17 05:37 Room Air 11/09/17 05:37 98.4 111 18 142/78 (99) 100 11/09/17 04:18 108 11/09/17 00:34 110 11/09/17 00:32 Room Air 11/09/17 00:32 98.8 113 18 119/72 (88) 91 11/08/17 21:20 100.4 115 18 132/82 (99) 92 11/08/17 21:20 Room Air 11/08/17 20:00 114 11/08/17 16:00 98.1 109 20 157/72 (100) 97 11/09/17 11/09/17 11/10/17 14:59 22:59 06:59 Output Total 300 ml Balance -300 ml Output Urine Total 300 ml # Bowel Movements 1 . Laboratory Tests Test 11/08/17 07:52 White Blood Count 14.8 TH/MM3 Red Blood Count 3.84 MIL/MM3 Hemoglobin 11.4 GM/DL Hematocrit 35.3 % Mean Corpuscular Volume 92.0 FL Mean Corpuscular Hemoglobin 29.8 PG Mean Corpuscular Hemoglobin Concent 32.4 % Red Cell Distribution Width 15.2 % Platelet Count 326 TH/MM3 Mean Platelet Volume 7.7 FL Neutrophils (%) (Auto) 87.5 % Lymphocytes (%) (Auto) 4.5 % Monocytes (%) (Auto) 7.2 % Eosinophils (%) (Auto) 0.3 % Basophils (%) (Auto) 0.5 % Neutrophils # (Auto) 13.0 TH/MM3 Lymphocytes # (Auto) 0.7 TH/MM3 Monocytes # (Auto) 1.1 TH/MM3 Eosinophils # (Auto) 0.0 TH/MM3 Basophils # (Auto) 0.1 TH/MM3 CBC Comment DIFF FINAL Differential Comment Laboratory Tests Test 11/08/17 07:52 Blood Urea Nitrogen 10 MG/DL Creatinine 0.96 MG/DL Random Glucose 177 MG/DL Total Protein 7.4 GM/DL Albumin 2.6 GM/DL Calcium Level 8.6 MG/DL Phosphorus Level 3.0 MG/DL Magnesium Level 1.9 MG/DL Alkaline Phosphatase 131 U/L Aspartate Amino Transf (AST/SGOT) 36 U/L Alanine Aminotransferase (ALT/SGPT) 68 U/L Total Bilirubin 0.4 MG/DL Sodium Level 141 MEQ/L Potassium Level 3.2 MEQ/L Chloride Level 104 MEQ/L Carbon Dioxide Level 26.6 MEQ/L Anion Gap 10 MEQ/L Estimat Glomerular Filtration Rate 74 ML/MIN Hemoglobin A1c 8.4 % Lactic Acid Level 1.6 mmol/L Microbiology Date/Time Source Procedure Growth Status 11/06/17 22:10 Blood Peripheral Aerobic Blood Culture - Preliminary NO GROWTH IN 3 DAYS Resulted 11/06/17 22:10 Blood Peripheral Anaerobic Blood Culture - Preliminary NO GROWTH IN 3 DAYS Resulted 11/06/17 22:05 Blood Peripheral Aerobic Blood Culture - Preliminary NO GROWTH IN 3 DAYS Resulted 11/06/17 22:05 Blood Peripheral Anaerobic Blood Culture - Preliminary NO GROWTH IN 3 DAYS Resulted 11/06/17 20:46 Nasal Washing Influenza Types A,B Antigen (SRINI) - Final NEGATIVE FOR FLU A AND B ANTIGEN.... Complete Imaging Last Impressions Breast Ultrasound 11/06/17 0000 Signed Impressions: Service Date/Time: Monday, November 06, 2017 22:01 - CONCLUSION: This examination was performed to evaluate for any abscess. No abscess is observed. Isolated sonographic evaluation of the breast without mammographic correlate is exceedingly insensitive for detection of malignancy. Correlation with mammography is needed. Jelani Castelan Jr., MD Physical Exam GENERAL: Obese, well-developed patient, in no apparent distress. SKIN: No rashes, ecchymoses or lesions. Cool and dry. HEAD: Atraumatic. Normocephalic. No temporal or scalp tenderness. EYES: Pupils equal round and reactive. Extraocular motions intact. No scleral icterus. No injection or drainage. ENT: Nose without bleeding, purulent drainage or septal hematoma. Throat without erythema, tonsillar hypertrophy or exudate. Uvula midline. Airway patent. NECK: Trachea midline. No JVD or lymphadenopathy. Supple, nontender, no meningeal signs. CARDIOVASCULAR: Regular rate and rhythm without murmurs, gallops, or rubs. RESPIRATORY: Clear to auscultation. Breath sounds equal bilaterally. No wheezes , rales, or rhonchi. GASTROINTESTINAL: Abdomen soft, non-tender, nondistended. No hepato-splenomegaly , or palpable masses. No guarding. MUSCULOSKELETAL: Extremities without clubbing, cyanosis, or edema. No joint tenderness, effusion, or edema noted. No calf tenderness. Negative Homans sign bilaterally. Right breast larger than left marsha outer quadrants. Right outer quadrants with erythema, induration and tenderness. Significant moisture noted in the breast folds. No nipple discharge. Shape of nipple normal. Significant induration ? mass/abscess. NEUROLOGICAL: Awake and alert. Non focal exam. Psych cooperative IV line sites with no e.o infection. Assessment & Plan Remarks Sepsis present on admission Right breast cellulitis possible abscess Diabetes uncontrolled Diabetic neuropathy Obesity BMI 41.7 Recommendations: Continue Ancef IV will assess response to MSSA treatment Continue Diflucan oral Continue nystatin cream local application Patient to shower daily Nursing instructions:Wipe dry the breast folds. On right breast fold apply nystatin cream after wiping dry the fold. Then place [place] paper towels in entire skin folds as long folds. Then place dry towels to raise the right breast. D/w recommend surgical consult. May need repeat imaging. Follow cultures Follow clinically. d/w pt and RN. to cover for me this weekend. Connie Rojas MD Nov 09, 2017 12:59
[2017-11-09] MEDS: ACETAMINOPHEN/HYDROcodone 325 MG/10 MG TAB PO PRN ×2 (13:03→18:38)
--- NOTE | 2017-11-09 17:04 | MB ---
cc: SHANNEN DONNELLY DATE OF CONSULTATION: 11/09/2017. REASON FOR CONSULTATION: Right breast cellulitis and possible abscess. PERSON REQUESTING THE CONSULTATION: Dr. Ruiz. HISTORY OF PRESENT ILLNESS: The patient is a 52-year-old -[place] female who presented to [facility] with right breast swelling and pain since last week. The patient states that it became worse and more swollen and red and painful right breast which prompted her presentation to the emergency department. She had not seen any physician prior. There is no drainage or purulent material from the nipple or areola. She has never had a previous infection and there is no previous history of breast cancer or previous breast surgery or breast disease. The patient does have a smoking history but she states she quit when she entered the hospital two days ago. Her last mammogram was two years ago and she reports that was normal. She has no personal or family history of breast cancer. REVIEW OF SYSTEMS: A twelve-point review of systems was conducted with the patient and is negative except for the pertinent positives mentioned above in the history of present illness. PAST MEDICAL HISTORY: 1. Diabetes. 2. Hypertension. 3. Diabetic retinopathy. 4. Diabetic neuropathy. PAST SURGICAL HISTORY: 1. section. 2. Right foot surgery. ALLERGIES: NO KNOWN DRUG ALLERGIES. HOME MEDICATIONS: 1. Lasix. 2. Neurontin. 3. Farxiga. 4. Cozaar. 5. Metformin. 6. Insulin. 7. Potassium. FAMILY HISTORY: No family history of breast cancer. SOCIAL HISTORY The patient be uses cigarettes and states she has currently has now quit. Does not use alcohol or any illicit drugs. PHYSICAL EXAMINATION: VITAL SIGNS: Temperature 98.8 degrees, pulse 113, blood pressure 119/72. GENERAL: The patient is a well-developed, well-nourished -[place] female in no acute distress. She does not appear acutely or chronically ill. HEAD, EYES, EARS, NOSE, THROAT: Head is normocephalic and atraumatic. Pupils equal, round and reactive to light. The sclerae are nonicteric. The oral cavity is clear. The airway is patent. NECK: The neck is supple. No jugular venous distention. LUNGS: Breath sounds present bilaterally. Nonlabored breathing pattern. HEART: Regular rate and rhythm. No murmurs. ABDOMEN: The abdomen is soft, nontender and nondistended. Normal bowel sounds. EXTREMITIES: No cyanosis, clubbing or edema. NEUROLOGIC: The patient is awake, alert and oriented. Insight and judgment are intact. Cranial nerves II through XII are grossly intact. Nonfocal peripheral exam. BREAST EXAM: Exam done with leasing representative, CHALO Bennett present, reveals the left breast is normal without masses and without skin changes or tenderness. No palpable lymphadenopathy. Right breast reveals some cellulitic acute edematous changes inferior to the areola at the six o'clock position without any distinct mass or fluctuance. No palpable lymphadenopathy. No areolar or nipple changes or discharge. LABORATORY VALUES: White blood cell count 14.8 down from admission of a 19.0. Glucose on admission was 261. Hemoglobin A1c is 8.4. IMAGING STUDIES: Ultrasound of the right breast on 11/06 at 2229 does show cellulitis so distinct abscess. ASSESSMENT AND PLAN: The patient is a 52-year-old female with right breast cellulitis. The patient is a poorly controlled diabetic with elevated A1c and also with a history of smoking, both of which are significant risk factors for cellulitis including specifically breast infections and abscesses. She has no obvious abscess on exam; however, the patient may be forming abscess type process over the last 48 hours as she responds to her antibiotics. I do recommend repeat ultrasound of the right breast to reevaluate for abscess as again abscesses can form over a short period of time. If the patient is found to have a distinct fluid collection consistent with abscess, I would recommend either interventional drainage with an ultrasound-guided drain, or if this is not possible, as a secondary choice will perform operative drainage. I discussed this recommendation with the patient. She is in agreement. If the patient has no abscess and just has continued cellulitis, I would recommend continuing IV antibiotics and current management, aggressive glucose control and will follow along with the patient. The patient also will follow up with me after discharge before updating her mammogram and breast exam after resolution of her infection. Thank you very much for this consultation. We will follow along with the patient and will order the ultrasound and possible drainage. MD EMIR Wild/DORI /3:56 PM /4:40 PM
[2017-11-09] MEDS: MAGNESIUM HYDROXIDE SUSP 30 ML CUP PO PRN (17:53)
--- NOTE | 2017-11-09 20:12 | RADRPT ---
EXAM DATE/TIME: 11/09/2017 16:56 [facility] COMPARISON: US BREAST RIGHT, November 06, 2017, 22:01. INDICATIONS : Abscess. MEDICAL HISTORY : Hypercholesterolemia. Hypertension. Diabetes. SURGICAL HISTORY : section. Dental surgery. ENCOUNTER: Subsequent ACUITY: 1 week PAIN SCORE: 5/10 LOCATION: Right breast. FINDINGS: This ultrasound was performed to evaluate for an abscess. Ultrasound of the right inferior breast was performed. There is heterogeneous tissue. No liquefied abscess observed. Some hyperemia noted. CONCLUSION: No liquefied abscess observed. Isolated ultrasound evaluation of the breast without mammographic elizabeth elate is very insensitive for detecting malignancy. Jelani Castelan Jr., MD on November 09, 2017 at 20:08 Board Certified Radiologist. This report was verified electronically.
[2017-11-09] MEDS: GABAPENTIN 300 MG CAP PO SCH (20:45)
[2017-11-09] MEDS: FLUCONAZOLE 200 MG TAB PO SCH (20:46)
[2017-11-09] MEDS ORDERED: INSULIN DETEMIR 100 UNITS/ML VIAL SQ SCH (21:00)
[2017-11-10] VITALS (11 sets, daily range): BP systolic 139–160; BP diastolic 65–98; PULSE 96–116; RESP 16–20; TEMP 98.3–101.1; O2SAT 86–94
[2017-11-10] MEDS: NYSTATIN 100,000 UNIT/GM CREAM 15 GM TOPICAL SCH ×4 (01:07→17:04)
[2017-11-10] MEDS ORDERED: PHARMACY ORDERED LAB ONE (02:45)
[2017-11-10] MEDS: ceFAZolin 2 GM PREMIX 50 ML IV SCH ×3 (03:20→21:43)
[2017-11-10] MEDS: SODIUM CHLOR 0.9% 1000 ML INJ 1,000 ML IV SCH ×2 (06:54→17:04)
[2017-11-10] MEDS: ACETAMINOPHEN/HYDROcodone 325 MG/10 MG TAB PO PRN (08:48)
--- NOTE | 2017-11-10 08:57 | HHI.PR ---
Subjective Remarks in no acute distress. temps overall better- T max 99.7. pain is better. no new complaints. Objective Vitals Vital Signs Date Time Temp Pulse Resp B/P (MAP) Pulse Ox O2 Delivery O2 Flow Rate FiO2 11/10/17 05:00 99.1 105 18 152/80 (104) 91 11/10/17 04:00 102 11/10/17 00:22 98.5 113 18 155/98 (117) 93 11/10/17 00:00 98 11/09/17 20:25 99.7 108 18 153/76 (101) 91 11/09/17 20:00 Room Air 11/09/17 20:00 102 11/09/17 19:26 109 11/09/17 16:00 98.5 108 20 157/79 (105) 92 11/09/17 12:00 98.8 113 20 150/78 (102) 91 11/09/17 11:05 106 I/O 11/09/17 11/09/17 11/09/17 11/10/17 11/10/17 11/10/17 07:00 15:00 23:00 07:00 15:00 23:00 Intake Total 610 ml 950 ml 360 ml 330 ml Output Total 2250 ml 300 ml 825 ml 200 ml Balance -1640 ml 650 ml -465 ml 130 ml Intake Oral 610 ml 360 ml 330 ml IV Total 950 ml Output Urine Total 2250 ml 300 ml 825 ml 200 ml # Bowel Movements 0 1 0 1 Result Diagram: 11/08/17 0752 11/08/17 0752 Imaging Last Impressions Breast Ultrasound 11/09/17 0000 Signed Impressions: Service Date/Time: Thursday, November 09, 2017 16:56 - CONCLUSION: No liquefied abscess observed. Isolated ultrasound evaluation of the breast without mammographic correlate is very insensitive for detecting malignancy. Jelani Castelan Jr., MD Objective Remarks GENERAL: This is a well-nourished, well-developed patient, in no apparent distress. CARDIOVASCULAR: Regular rate and regular rhythm without murmurs, gallops, or rubs. RESPIRATORY: Clear to auscultation. Breath sounds equal bilaterally. No wheezes , rales, or rhonchi. breast; mild tenderness and skin discoloration of the right breast-seems to be improving. GASTROINTESTINAL: Abdomen soft, non-tender, nondistended. Normal, active bowel sounds MUSCULOSKELETAL: Extremities without clubbing, cyanosis, or edema. NEURO: Alert & Oriented x4 to person, place, time, situation. Moves all ext x4 Medications and IVs Inpatient Medications Acetaminophen (Tylenol) 650 mg Q4H PRN PO FEVER Last administered on 11/08/17at 00:38; Start 11/07/17 at 13:15 Acetaminophen/ Hydrocodone Bitart (Sharon 5-325 Mg) 1 tab Q4H PRN PO PAIN 1-5; Start 11/07/17 at 00:45 Acetaminophen/ Hydrocodone Bitart (Sharon 10-325 Mg) 1 tab Q4H PRN PO PAIN 6-10 Last administered on 11/09/17at 18:38; Start 11/07/17 at 00:45 Albuterol/ Ipratropium (Duoneb Neb) 1 ampule Q4HR NEB PRN NEB SHORTNESS OF BREATH; Start 11/07/17 at 00:45 Cefazolin Sodium/ Dextrose 50 ml @ 100 mls/hr Q8H IV Last administered on 11/10at 03:20; Start 11/08/17 at 20:00 Dextrose (D50w (Vial) Inj) 50 ml UNSCH PRN IV PUSH HYPOGLYCEMIA-SEE COMMENTS; Start 11/07/17 at 12:30 Diphenhydramine HCl (Benadryl Inj) 50 mg ONCE ONCE IV PUSH Last administered on 11/06/17at 22:42; Start 11/06/17 at 22:00; Stop 11/06/17 at 22:04; Status DC Fluconazole (Diflucan) 200 mg Q24H PO Last administered on 11/09/17at 20:46; Start 11/08/17 at 20:00 Furosemide (Lasix) 40 mg DAILY PO Last administered on 11/09/17at 08:32; Start 11/07/17 at 09:00 Gabapentin (Neurontin) 600 mg HS PO Last administered on 11/09/17at 20:45; Start 11/07/17 at 21:00 Glucagon (Glucagon Inj) 1 mg UNSCH PRN OTHER HYPOGLYCEMIA-SEE COMMENTS; Start 11/07/17 at 12:30 Ibuprofen (Motrin) 600 mg ONCE ONCE PO ; Start 11/06/17 at 22:00; Stop at 22:04; Status DC Insulin Aspart (NovoLOG SUPPLEMENTAL SCALE) 1 ACHS SLIDING SCALE SQ Last administered on 11/09/17at 20:46; Start 11/07/17 at 17:00 Insulin Detemir (Levemir Inj) 8 units Q12HR SQ Last administered on 11/09/17at 20:46; Start 11/09/17 at 21:00 Insulin Human Isoph/Insulin Regular (NovoLIN 70/30 INJ) 50 units DAILY SQ Last administered on 11/07/17at 08:20; Start 11/07/17 at 09:00; Status Future Hold Insulin Human Regular (NovoLIN R INJ) 3 units STAT ONCE IV PUSH Last administered on 11/06/17at 23:14; Start 11/06/17 at 22:45; Stop 11/06/17 at 22:46 ; Status DC Levofloxacin/ Dextrose 150 ml @ 100 mls/hr Q24H IV Last administered on at 08:21; Start 11/07/17 at 09:00; Stop 11/08/17 at 18:08; Status DC Losartan Potassium (Cozaar) 50 mg DAILY PO Last administered on 11/09/17at 08:30 ; Start 11/07/17 at 09:00 Magnesium Hydroxide (Milk Of Magnesia Liq) 30 ml DAILY PRN PO CONSTIPATION Last administered on 11/09/17at 17:53; Start 11/09/17 at 16:45 Metformin HCl (Glucophage) 1,000 mg BIDPC PO Last administered on 11/09/17at 08: 33; Start 11/07/17 at 09:00 Metoclopramide HCl (Reglan Inj) 10 mg ONCE ONCE IV PUSH Last administered on at 22:42; Start 11/06/17 at 22:00; Stop 11/06/17 at 22:04; Status DC Naloxone HCl (Narcan Inj) 0.4 mg UNSCH PRN IV PUSH SEE LABEL COMMENTS; Start at 22:45 Nystatin (Mycostatin Cream) 1 applic Q6HR TOPICAL Last administered on at 06:00; Start 11/09/17 at 00:00 Patient Own Medication PT OWN MED: Tabl... DAILY PO ; Start 11/07/17 at 09:00; Status Future Hold Pharmacy Profile Note 0 ml @ 0 mls/hr UNSCH OTHER ; Start 11/07/17 at 17:30; Stop 11/08/17 at 18:08; Status DC Piperacillin Sod/ Tazobactam Sod 100 ml @ 200 mls/hr ONCE ONCE IV Last administered on 11/06/17at 22:42; Start 11/06/17 at 22:00; Stop 11/06/17 at 22:29 ; Status DC Potassium Chloride (KCl) 30 meq ONCE ONCE PO Last administered on 11/08/17at 10 :22; Start 11/08/17 at 09:30; Stop 11/08/17 at 09:31; Status DC Sodium Chloride 1,000 ml @ 125 mls/hr Q8H IV Last administered on 11/10/17at 06 :54; Start 11/07/17 at 04:15 Sodium Chloride (NS Flush) 2 ml BID IV FLUSH Last administered on 11/09/17at 20: 46; Start 11/07/17 at 09:00 Vancomycin HCl 1500 mg/Sodium Chloride 515 ml @ 257.5 mls/ hr Q12HR ONCE IV ; Start 11/08/17 at 09:00; Stop 11/08/17 at 10:59; Status DC Vancomycin HCl 2000 mg/Sodium Chloride 520 ml @ 250 mls/hr Q12H IV Last administered on 11/08/17at 15:12; Start 11/08/17 at 15:00; Stop 11/08/17 at 18:08 ; Status DC Vancomycin HCl 2500 mg/Sodium Chloride 525 ml @ 250 mls/hr NOW ONCE IV Last administered on 11/07/17at 19:00; Start 11/07/17 at 19:00; Stop 11/07/17 at 21:05 ; Status DC Vancomycin/Sodium Chloride 200 ml @ 200 mls/hr Q12H IV ; Start 11/07/17 at 17: 30; Stop 11/07/17 at 18:38; Status DC A/P Problem List: (1) Sepsis ICD Code: A41.9 - Sepsis, unspecified organism (2) Cellulitis of right breast ICD Code: N61.0 - Mastitis without abscess (3) Hypertension ICD Code: I10 - Essential (primary) hypertension (4) Diabetes ICD Code: E11.9 - Type 2 diabetes mellitus without complications (5) Leukocytosis ICD Code: D72.829 - Elevated white blood cell count, unspecified Assessment and Plan Sepsis due to Right breast cellulitis Breast ultrasound reviewed and shows no evidence of an abscess breast ultrasound was repeated with no fluid collection. - ID consult appreciated; started on Ancef and Fluconazole -surgery evaluation appreciated and recommended antibiotic therapy at this time. Diabetes -hold insulin 70/30. -increase levemir to 10 units subq bid- continue accu-check with SSI. -continue to monitor and adjust the regimen as needed. Hypertension, chronic, currently controlled -Resume home medications and monitor vitals The patient currently on losartan. CKD, creatinine 1.2 at baseline -Resumed home medications -Avoid nephrotoxins Hypokalemia;replaced. Discharge Planning dc home early this week if continues to improve and when cleared by ID. Problem Qualifiers (1) Sepsis: Qualified Codes: A41.9 - Sepsis, unspecified organism (2) Diabetes: Qualified Codes: E11.65 - Type 2 diabetes mellitus with hyperglycemia; Z79.4 - terminal clerk (current) use of insulin (3) Leukocytosis: Qualified Codes: D72.829 - Elevated white blood cell count, unspecified Benton Ruiz MD Nov 10, 2017 08:57
[2017-11-10] MEDS: SODIUM CHLORIDE 0.9% FLUSH 10 ML FLUSH IV FLUSH SCH ×2 (09:00→21:00)
[2017-11-10] MEDS: INSULIN DETEMIR 100 UNITS/ML VIAL SQ SCH ×2 (10:00→21:45)
[2017-11-10] MEDS: metFORMIN HCL 500 MG TAB PO SCH ×2 (10:27→17:02)
[2017-11-10] MEDS: FUROSEMIDE 40 MG TAB PO SCH (10:28)
[2017-11-10] MEDS: LOSARTAN 50 MG TAB PO SCH (10:28)
[2017-11-10] MEDS: POTASSIUM CHLORIDE 8 MEQ CAP PO SCH (10:28)
[2017-11-10 10:29] LABS: AUTOMATED NEUTROPHIL # 10.8 TH/MM3 (1.8-7.7); BASOPHIL % 0.3 % (0.0-2.0); EOSINOPHIL % 0.3 % (0.0-4.0); HEMATOCRIT 31.6 % (35.0-46.0); HEMOGLOBIN 10.3 GM/DL (11.6-15.3); LYMPH % 6.1 % (9.0-44.0); LYMPHOCYTE # 0.8 TH/MM3 (1.0-4.8); MEAN CELL VOLUME 90.8 FL (80.0-100.0); MEAN CORPUSCULAR HEMOGLOBIN 29.5 PG (27.0-34.0); MEAN CORPUSCULAR HGB CONC 32.5 % (32.0-36.0); MONO % 10.5 % (0.0-8.0); MONOCYTE # 1.4 TH/MM3 (0-0.9); NEUT % 82.8 % (16.0-70.0); PLATELET COUNT 331 TH/MM3 (150-450); RED BLOOD COUNT 3.48 MIL/MM3 (4.00-5.30); RED CELL DISTRIBUTION WIDTH 15.2 % (11.6-17.2); WHITE BLOOD COUNT 13.1 TH/MM3 (4.0-11.0)
[2017-11-10] MEDS: INSULIN ASPART SUPPLEMENTAL SCALE SQ SCH ×4 (10:29→21:45)
--- NOTE | 2017-11-10 10:50 | HHI.PR ---
Subjective Subjective Notes feels better, reports less pain, no drainage Objective Vitals/I&O Vital Signs Date Time Temp Pulse Resp B/P (MAP) Pulse Ox O2 Delivery O2 Flow Rate FiO2 11/10/17 08:00 98.9 108 20 140/65 (90) 88 11/09/17 20:00 Room Air Labs Laboratory Tests Test 11/10/17 09:44 White Blood Count 13.1 Red Blood Count 3.48 Hemoglobin 10.3 Hematocrit 31.6 Mean Corpuscular Volume 90.8 Mean Corpuscular Hemoglobin 29.5 Mean Corpuscular Hemoglobin Concent 32.5 Red Cell Distribution Width 15.2 Platelet Count 331 Mean Platelet Volume 8.0 Neutrophils (%) (Auto) 82.8 Lymphocytes (%) (Auto) 6.1 Monocytes (%) (Auto) 10.5 Eosinophils (%) (Auto) 0.3 Basophils (%) (Auto) 0.3 Neutrophils # (Auto) 10.8 Lymphocytes # (Auto) 0.8 Monocytes # (Auto) 1.4 Eosinophils # (Auto) 0.0 Basophils # (Auto) 0.0 CBC Comment DIFF FINAL Differential Comment Date/Time Source Procedure Growth Status 11/06/17 22:10 Blood Peripheral Aerobic Blood Culture - Preliminary NO GROWTH IN 3 DAYS Resulted 11/06/17 22:10 Blood Peripheral Anaerobic Blood Culture - Preliminary NO GROWTH IN 3 DAYS Resulted 11/06/17 20:46 Nasal Washing Influenza Types A,B Antigen (SRINI) - Final NEGATIVE FOR FLU A AND B ANTIGEN.... Complete Narrative Exam RIGHT breast with cellulitis, no obvious fluid collection, mild Valery inferior fold, cream applied by RN. RN present for exam. A/P Assessment and Plan RIGHT breast cellulitis continue ABX for now if abscess/fluid collection develops would consider operative drainage. Freddie Hernandez MD Nov 10, 2017 10:50
[2017-11-10 10:56] LABS: BICARBONATE 29.1 MEQ/L (21.0-32.0); CALCIUM 8.6 MG/DL (8.5-10.1); CREATININE 0.72 MG/DL (0.50-1.00)
[2017-11-10] MEDS ORDERED: POTASSIUM CHLORIDE 10 MEQ CONTROLLED RELEASE TAB PO ONE ×2 (11:30→16:00)
--- NOTE | 2017-11-10 16:37 | HHI.IDPN ---
Subjective Subjective Remarks X cover for Dr Rojas Chart reviewed Ms. Sanchez is a 52-year-old female with past medical history significant for diabetes, diabetic neuropathy, hypertension. There is background patient presents to the emergency department with complaints of painful lump under her right breast as well as fever and chills. Patient reports she has not had a mammogram in over 2 years now. She denies any discharge from the nipple she denies any change in the shape of her nipple. She reports wearing underwire bras washing the bar every other use. She thinks she may have abraded her breast skin during cleaning. Patient reports she noticed a lump under her right breast approximately a week prior to admission. She then noticed that this erythema started spreading to the outer quadrants of her right breast. She reports the pain as throbbing in nature 8 out of 10 worse with movement. She reports fever and chills associated with nausea. The only other time she has had an infection was in the right foot with similar symptoms when she was admitted. Patient is a known diabetic she is currently on insulin at home and her blood sugars are not controlled. No abscess on ultrasound of the breast She thinks her swelling and pain improved No fever WBC down to 13 K Antibiotics Ancef IV Diflucan oral Lines Line sites with no e.o infection. Past Medical History reviewed. Allergies: Coded Allergies: No Known Allergies (Verified Allergy, Unknown, 11/06/17) Objective . Vital Signs Date Time Temp Pulse Resp B/P (MAP) Pulse Ox O2 Delivery O2 Flow Rate FiO2 11/10/17 12:00 99.0 105 20 160/74 (102) 86 11/10/17 08:10 106 11/10/17 08:00 98.9 108 20 140/65 (90) 88 11/10/17 05:00 99.1 105 18 152/80 (104) 91 11/10/17 04:00 102 11/10/17 00:22 98.5 113 18 155/98 (117) 93 11/10/17 00:00 98 11/09/17 20:25 99.7 108 18 153/76 (101) 91 11/09/17 20:00 Room Air 11/09/17 20:00 102 11/09/17 19:26 109 . Laboratory Tests Test 11/10/17 09:44 White Blood Count 13.1 TH/MM3 Red Blood Count 3.48 MIL/MM3 Hemoglobin 10.3 GM/DL Hematocrit 31.6 % Mean Corpuscular Volume 90.8 FL Mean Corpuscular Hemoglobin 29.5 PG Mean Corpuscular Hemoglobin Concent 32.5 % Red Cell Distribution Width 15.2 % Platelet Count 331 TH/MM3 Mean Platelet Volume 8.0 FL Neutrophils (%) (Auto) 82.8 % Lymphocytes (%) (Auto) 6.1 % Monocytes (%) (Auto) 10.5 % Eosinophils (%) (Auto) 0.3 % Basophils (%) (Auto) 0.3 % Neutrophils # (Auto) 10.8 TH/MM3 Lymphocytes # (Auto) 0.8 TH/MM3 Monocytes # (Auto) 1.4 TH/MM3 Eosinophils # (Auto) 0.0 TH/MM3 Basophils # (Auto) 0.0 TH/MM3 CBC Comment DIFF FINAL Differential Comment Laboratory Tests Test 11/10/17 09:44 Blood Urea Nitrogen 6 MG/DL Creatinine 0.72 MG/DL Random Glucose 311 MG/DL Calcium Level 8.6 MG/DL Sodium Level 136 MEQ/L Potassium Level 2.9 MEQ/L Chloride Level 97 MEQ/L Carbon Dioxide Level 29.1 MEQ/L Anion Gap 10 MEQ/L Estimat Glomerular Filtration Rate 103 ML/MIN Imaging Last Impressions Breast Ultrasound 11/09/17 0000 Signed Impressions: Service Date/Time: Thursday, November 09, 2017 16:56 - CONCLUSION: No liquefied abscess observed. Isolated ultrasound evaluation of the breast without mammographic correlate is very insensitive for detecting malignancy. Jelani Castelan Jr., MD Physical Exam GENERAL: Obese, well-developed patient, in no apparent distress. SKIN: No rashes, ecchymoses or lesions. Cool and dry. HEAD: Atraumatic. Normocephalic. No temporal or scalp tenderness. EYES: Pupils equal round and reactive. Extraocular motions intact. No scleral icterus. No injection or drainage. ENT: Nose without bleeding, purulent drainage or septal hematoma. Throat without erythema, tonsillar hypertrophy or exudate. Uvula midline. Airway patent. NECK: Trachea midline. No JVD or lymphadenopathy. Supple, nontender, no meningeal signs. CARDIOVASCULAR: Regular rate and rhythm without murmurs, gallops, or rubs. RESPIRATORY: Clear to auscultation. Breath sounds equal bilaterally. No wheezes , rales, or rhonchi. GASTROINTESTINAL: Abdomen soft, non-tender, nondistended. No hepato-splenomegaly , or palpable masses. No guarding. MUSCULOSKELETAL: Extremities without clubbing, cyanosis, or edema. No joint tenderness, effusion, or edema noted. No calf tenderness. Negative Homans sign bilaterally. Right breast larger than left marsha outer quadrants. Right outer quadrants with erythema, induration and moderate tenderness. Significant induration in lower inner and pouter quadrants w/o dluctuance No nipple d/c NEUROLOGICAL: Awake and alert. Non focal exam. Psych cooperative IV line sites with no e.o infection. Assessment & Plan Remarks Sepsis present on admission Right breast cellulitis, phlegmone - no clinical or radiological e/o abscess - clinically improving locally and systemically Diabetes uncontrolled Diabetic neuropathy Obesity BMI 41.7 Recommendations: Continue Ancef IV will assess response to MSSA treatment Continue Diflucan oral Continue nystatin cream local application Rosaura Main MD Nov 10, 2017 16:37
[2017-11-10] MEDS: ACETAMINOPHEN/HYDROcodone 325 MG/5 MG TAB PO PRN (17:02)
[2017-11-10] MEDS: ACETAMINOPHEN 325 MG TAB PO PRN (17:02)
[2017-11-10] MEDS ORDERED: POTASSIUM CHLORIDE 20 MEQ CONTROLLED RELEASE TAB PO ONE (20:00)
[2017-11-10] MEDS: FLUCONAZOLE 200 MG TAB PO SCH (21:44)
[2017-11-10] MEDS: GABAPENTIN 300 MG CAP PO SCH (21:45)
[2017-11-10] MEDS: MAGNESIUM HYDROXIDE SUSP 30 ML CUP PO PRN (21:47)
[2017-11-11] VITALS (10 sets, daily range): BP systolic 147–170; BP diastolic 70–83; PULSE 88–107; RESP 16–22; TEMP 97.8–100.4; O2SAT 92–95
[2017-11-11] MEDS: SODIUM CHLOR 0.9% 1000 ML INJ 1,000 ML IV SCH ×3 (00:20→18:06)
[2017-11-11] MEDS: NYSTATIN 100,000 UNIT/GM CREAM 15 GM TOPICAL SCH ×5 (00:21→23:50)
[2017-11-11] MEDS: ceFAZolin 2 GM PREMIX 50 ML IV SCH ×3 (05:07→21:20)
[2017-11-11] MEDS: POTASSIUM CHLORIDE 8 MEQ CAP PO SCH (08:10)
[2017-11-11] MEDS: FUROSEMIDE 40 MG TAB PO SCH (08:11)
[2017-11-11] MEDS: metFORMIN HCL 500 MG TAB PO SCH ×2 (08:11→18:00)
[2017-11-11] MEDS: LOSARTAN 50 MG TAB PO SCH (08:11)
[2017-11-11] MEDS: SODIUM CHLORIDE 0.9% FLUSH 10 ML FLUSH IV FLUSH SCH ×2 (08:11→21:00)
[2017-11-11] MEDS: INSULIN ASPART SUPPLEMENTAL SCALE SQ SCH ×4 (08:12→21:21)
[2017-11-11] MEDS: INSULIN DETEMIR 100 UNITS/ML VIAL SQ SCH ×2 (08:12→21:21)
[2017-11-11] MEDS ORDERED: POTASSIUM CHLORIDE 10 MEQ CONTROLLED RELEASE TAB PO ONE ×2 (09:15→13:00)
--- NOTE | 2017-11-11 09:16 | HHI.PR ---
Subjective Remarks in no acute distress. denies pain. still with on and off fever; Tmax 101. Objective Vitals Vital Signs Date Time Temp Pulse Resp B/P (MAP) Pulse Ox O2 Delivery O2 Flow Rate FiO2 11/11/17 08:00 Room Air 11/11/17 04:00 100.4 106 16 157/74 (101) 94 11/11/17 04:00 Room Air 11/11/17 03:59 103 11/11/17 00:04 98 11/11/17 00:00 Room Air 11/11/17 00:00 98.6 107 20 154/83 (106) 95 11/10/17 20:00 97 11/10/17 20:00 Room Air 11/10/17 20:00 98.3 103 16 144/77 (99) 94 11/10/17 16:26 116 11/10/17 16:00 101.1 116 20 139/66 (90) 92 11/10/17 12:04 96 11/10/17 12:00 99.0 105 20 160/74 (102) 86 I/O 11/10/17 11/10/17 11/10/17 11/11/17 11/11/17 11/11/17 07:00 15:00 23:00 07:00 15:00 23:00 Intake Total 330 ml 1920 ml 1046 ml Output Total 200 ml 1300 ml 600 ml Balance 130 ml 620 ml 446 ml Intake Oral 330 ml 1920 ml IV Total 1046 ml Output Urine Total 200 ml 1300 ml 600 ml # Bowel Movements 1 Result Diagram: 11/10/17 0944 11/11/17 0419 Imaging Last Impressions Breast Ultrasound 11/09/17 0000 Signed Impressions: Service Date/Time: Thursday, November 09, 2017 16:56 - CONCLUSION: No liquefied abscess observed. Isolated ultrasound evaluation of the breast without mammographic correlate is very insensitive for detecting malignancy. Jelani Castelan Jr., MD Objective Remarks GENERAL: This is a well-nourished, well-developed patient, in no apparent distress. CARDIOVASCULAR: Regular rate and regular rhythm without murmurs, gallops, or rubs. RESPIRATORY: Clear to auscultation. Breath sounds equal bilaterally. No wheezes , rales, or rhonchi. breast; mild tenderness and skin discoloration of the right breast-seems to be improving. GASTROINTESTINAL: Abdomen soft, non-tender, nondistended. Normal, active bowel sounds MUSCULOSKELETAL: Extremities without clubbing, cyanosis, or edema. NEURO: Alert & Oriented x4 to person, place, time, situation. Moves all ext x4 Medications and IVs Inpatient Medications Acetaminophen (Tylenol) 650 mg Q4H PRN PO FEVER Last administered on 11/10/17at 17:02; Start 11/07/17 at 13:15 Acetaminophen/ Hydrocodone Bitart ([place] 5-325 Mg) 1 tab Q4H PRN PO PAIN 1-5 Last administered on 11/10/17at 17:02; Start 11/07/17 at 00:45 Acetaminophen/ Hydrocodone Bitart ([place] 10-325 Mg) 1 tab Q4H PRN PO PAIN 6-10 Last administered on 11/10/17at 08:48; Start 11/07/17 at 00:45 Albuterol/ Ipratropium (Duoneb Neb) 1 ampule Q4HR NEB PRN NEB SHORTNESS OF BREATH; Start 11/07/17 at 00:45 Calcium Carbonate (Tums Chew) 500 mg Q2H PRN CHEW HEARTBURN; Start 11/10/17 at 22:00 Cefazolin Sodium/ Dextrose 50 ml @ 100 mls/hr Q8H IV Last administered on 11/11at 05:07; Start 11/08/17 at 20:00 Dextrose (D50w (Vial) Inj) 50 ml UNSCH PRN IV PUSH HYPOGLYCEMIA-SEE COMMENTS; Start 11/07/17 at 12:30 Diphenhydramine HCl (Benadryl Inj) 50 mg ONCE ONCE IV PUSH Last administered on 11/06/17at 22:42; Start 11/06/17 at 22:00; Stop 11/06/17 at 22:04; Status DC Fluconazole (Diflucan) 200 mg Q24H PO Last administered on 11/10/17at 21:44; Start 11/08/17 at 20:00 Furosemide (Lasix) 40 mg DAILY PO Last administered on 11/11/17at 08:11; Start 11/07/17 at 09:00 Gabapentin (Neurontin) 600 mg HS PO Last administered on 11/10/17at 21:45; Start 11/07/17 at 21:00 Glucagon (Glucagon Inj) 1 mg UNSCH PRN OTHER HYPOGLYCEMIA-SEE COMMENTS; Start 11/07/17 at 12:30 Ibuprofen (Motrin) 600 mg ONCE ONCE PO ; Start 11/06/17 at 22:00; Stop at 22:04; Status DC Insulin Aspart (NovoLOG SUPPLEMENTAL SCALE) 1 ACHS SLIDING SCALE SQ Last administered on 11/11/17at 08:12; Start 11/07/17 at 17:00 Insulin Detemir (Levemir Inj) 10 units Q12HR SQ Last administered on 11/11/17at 08:12; Start 11/10/17 at 09:00 Insulin Human Isoph/Insulin Regular (NovoLIN 70/30 INJ) 50 units DAILY SQ Last administered on 11/07/17at 08:20; Start 11/07/17 at 09:00; Status Future Hold Insulin Human Regular (NovoLIN R INJ) 3 units STAT ONCE IV PUSH Last administered on 11/06/17at 23:14; Start 11/06/17 at 22:45; Stop 11/06/17 at 22:46 ; Status DC Levofloxacin/ Dextrose 150 ml @ 100 mls/hr Q24H IV Last administered on at 08:21; Start 11/07/17 at 09:00; Stop 11/08/17 at 18:08; Status DC Losartan Potassium (Cozaar) 50 mg DAILY PO Last administered on 11/11/17at 08:11 ; Start 11/07/17 at 09:00 Magnesium Hydroxide (Milk Of Magnesia Liq) 30 ml DAILY PRN PO CONSTIPATION Last administered on 11/10/17at 21:47; Start 11/09/17 at 16:45 Metformin HCl (Glucophage) 1,000 mg BIDPC PO Last administered on 11/11/17at 08: 11; Start 11/07/17 at 09:00 Metoclopramide HCl (Reglan Inj) 10 mg ONCE ONCE IV PUSH Last administered on at 22:42; Start 11/06/17 at 22:00; Stop 11/06/17 at 22:04; Status DC Naloxone HCl (Narcan Inj) 0.4 mg UNSCH PRN IV PUSH SEE LABEL COMMENTS; Start at 22:45 Nystatin (Mycostatin Cream) 1 applic Q6HR TOPICAL Last administered on at 05:09; Start 11/09/17 at 00:00 Patient Own Medication PT OWN MED: Tabl... DAILY PO ; Start 11/07/17 at 09:00; Status Future Hold Pharmacy Profile Note 0 ml @ 0 mls/hr UNSCH OTHER ; Start 11/07/17 at 17:30; Stop 11/08/17 at 18:08; Status DC Piperacillin Sod/ Tazobactam Sod 100 ml @ 200 mls/hr ONCE ONCE IV Last administered on 11/06/17at 22:42; Start 11/06/17 at 22:00; Stop 11/06/17 at 22:29 ; Status DC Potassium Chloride (KCl) 20 meq ONCE ONCE PO Last administered on 11/10/17at 21 :44; Start 11/10/17 at 20:00; Stop 11/10/17 at 20:01; Status DC Sodium Chloride 1,000 ml @ 125 mls/hr Q8H IV Last administered on 11/11/17at 00 :20; Start 11/07/17 at 04:15 Sodium Chloride (NS Flush) 2 ml BID IV FLUSH Last administered on 11/09/17at 20: 46; Start 11/07/17 at 09:00 Vancomycin HCl 1500 mg/Sodium Chloride 515 ml @ 257.5 mls/ hr Q12HR ONCE IV ; Start 11/08/17 at 09:00; Stop 11/08/17 at 10:59; Status DC Vancomycin HCl 2000 mg/Sodium Chloride 520 ml @ 250 mls/hr Q12H IV Last administered on 11/08/17at 15:12; Start 11/08/17 at 15:00; Stop 11/08/17 at 18:08 ; Status DC Vancomycin HCl 2500 mg/Sodium Chloride 525 ml @ 250 mls/hr NOW ONCE IV Last administered on 11/07/17at 19:00; Start 11/07/17 at 19:00; Stop 11/07/17 at 21:05 ; Status DC Vancomycin/Sodium Chloride 200 ml @ 200 mls/hr Q12H IV ; Start 11/07/17 at 17: 30; Stop 11/07/17 at 18:38; Status DC A/P Problem List: (1) Sepsis ICD Code: A41.9 - Sepsis, unspecified organism (2) Cellulitis of right breast ICD Code: N61.0 - Mastitis without abscess (3) Hypertension ICD Code: I10 - Essential (primary) hypertension (4) Diabetes ICD Code: E11.9 - Type 2 diabetes mellitus without complications (5) Leukocytosis ICD Code: D72.829 - Elevated white blood cell count, unspecified Assessment and Plan Sepsis due to Right breast cellulitis Breast ultrasound reviewed and shows no evidence of an abscess breast ultrasound was repeated with no fluid collection. - ID consult appreciated; started on Ancef and Fluconazole -surgery following. Diabetes- uncontrolled. -hold insulin 70/30. -increase levemir to 12 units subq bid- continue accu-check with SSI. -continue to monitor and adjust the regimen as needed. Hypertension, chronic, currently controlled -Resume home medications and monitor vitals The patient currently on losartan. CKD, creatinine 1.2 at baseline -Resumed home medications -Avoid nephrotoxins Hypokalemia;will replace; BMP tomorrow. Discharge Planning still with on and off fever. not ready for discharge today. Problem Qualifiers (1) Sepsis: Qualified Codes: A41.9 - Sepsis, unspecified organism (2) Diabetes: Qualified Codes: E11.65 - Type 2 diabetes mellitus with hyperglycemia; Z79.4 - retirement (current) use of insulin (3) Leukocytosis: Qualified Codes: D72.829 - Elevated white blood cell count, unspecified Benton Ruiz MD Nov 11, 2017 09:16
--- NOTE | 2017-11-11 11:53 | HHI.PR ---
Subjective Subjective Notes feels better, US with no abscess Objective Vitals/I&O Vital Signs Date Time Temp Pulse Resp B/P (MAP) Pulse Ox O2 Delivery O2 Flow Rate FiO2 11/11/17 08:00 99.3 98 18 170/73 (105) 92 11/11/17 08:00 Room Air Labs Laboratory Tests Test 11/11/17 04:19 Potassium Level 3.2 Date/Time Source Procedure Growth Status 11/06/17 22:10 Blood Peripheral Aerobic Blood Culture - Final NO GROWTH IN 5 DAYS Complete 11/06/17 22:10 Blood Peripheral Anaerobic Blood Culture - Final NO GROWTH IN 5 DAYS Complete 11/06/17 20:46 Nasal Washing Influenza Types A,B Antigen (SRINI) - Final NEGATIVE FOR FLU A AND B ANTIGEN.... Complete Narrative Exam right breast exam with floor nurse present shows improved cellulitis and no clinical abscess A/P Assessment and Plan 52yo female with cellulitis, no abscess. ok for DC from surgery standpoint, will follow up with me in 5-7 days for repeat breast exam, if develops abscess we will manage as outpatient, d/w patient and she agrees Mayo Barrera MD Nov 11, 2017 11:53
[2017-11-11] MEDS: ACETAMINOPHEN/HYDROcodone 325 MG/10 MG TAB PO PRN (13:12)
[2017-11-11] MEDS: GABAPENTIN 300 MG CAP PO SCH (21:20)
[2017-11-11] MEDS: FLUCONAZOLE 200 MG TAB PO SCH (21:20)
[2017-11-11] MEDS: ACETAMINOPHEN 325 MG TAB PO PRN (21:26)
[2017-11-12] VITALS (12 sets, daily range): BP systolic 129–194; BP diastolic 63–86; PULSE 85–117; RESP 19–21; TEMP 98.7–99.8; O2SAT 88–96
[2017-11-12] MEDS: SODIUM CHLOR 0.9% 1000 ML INJ 1,000 ML IV SCH ×2 (02:50→06:54)
[2017-11-12] MEDS: ceFAZolin 2 GM PREMIX 50 ML IV SCH ×3 (04:59→21:13)
[2017-11-12] MEDS: NYSTATIN 100,000 UNIT/GM CREAM 15 GM TOPICAL SCH ×3 (05:00→18:00)
[2017-11-12] MEDS: FUROSEMIDE 40 MG TAB PO SCH (08:30)
[2017-11-12] MEDS: LOSARTAN 50 MG TAB PO SCH (08:30)
[2017-11-12] MEDS: POTASSIUM CHLORIDE 8 MEQ CAP PO SCH (08:30)
[2017-11-12] MEDS: metFORMIN HCL 500 MG TAB PO SCH ×2 (08:30→18:51)
[2017-11-12] MEDS: INSULIN DETEMIR 100 UNITS/ML VIAL SQ SCH ×2 (08:31→21:14)
[2017-11-12] MEDS: INSULIN ASPART SUPPLEMENTAL SCALE SQ SCH ×4 (08:31→21:15)
[2017-11-12] MEDS: SODIUM CHLORIDE 0.9% FLUSH 10 ML FLUSH IV FLUSH SCH ×2 (09:00→21:14)
--- NOTE | 2017-11-12 10:29 | HHI.PR ---
Subjective Remarks in no acute distress. overall doing fine. denies pain. has occasional sob. Objective Vitals Vital Signs Date Time Temp Pulse Resp B/P (MAP) Pulse Ox O2 Delivery O2 Flow Rate FiO2 11/12/17 08:30 Room Air 11/12/17 08:00 99.2 100 20 194/84 (120) 88 11/12/17 04:01 85 11/12/17 04:00 99.8 96 21 94 158/86 (110) 11/12/17 04:00 Room Air 11/12/17 00:11 106 11/12/17 00:00 98.7 95 20 137/71 (93) 95 11/12/17 00:00 Room Air 11/11/17 21:06 100 11/11/17 20:00 99.6 104 22 162/77 (105) 95 11/11/17 20:00 Room Air 11/11/17 16:00 98.7 98 20 147/70 (95) 95 11/11/17 16:00 88 11/11/17 16:00 Room Air 11/11/17 12:00 Room Air 11/11/17 12:00 96 11/11/17 12:00 97.8 100 18 151/83 (105) 92 I/O 11/11/17 11/11/17 11/11/17 11/12/17 11/12/17 11/12/17 06:59 14:59 22:59 06:59 14:59 22:59 Intake Total 1046 ml 1000 ml 1800 ml 480 ml Output Total 600 ml Balance 446 ml 1000 ml 1800 ml 480 ml Intake Oral 1800 ml 480 ml IV Total 1046 ml 1000 ml Output Urine Total 600 ml # Voids 8 6 # Bowel Movements 0 0 Result Diagram: 11/10/17 0944 11/11/17 0419 Imaging Last Impressions Breast Ultrasound 11/09/17 0000 Signed Impressions: Service Date/Time: Thursday, November 09, 2017 16:56 - CONCLUSION: No liquefied abscess observed. Isolated ultrasound evaluation of the breast without mammographic correlate is very insensitive for detecting malignancy. Jelani Castelan Jr., MD Objective Remarks GENERAL: This is a well-nourished, well-developed patient, in no apparent distress. CARDIOVASCULAR: Regular rate and regular rhythm without murmurs, gallops, or rubs. RESPIRATORY: Clear to auscultation. Breath sounds equal bilaterally. No wheezes , rales, or rhonchi. breast; mild tenderness and skin discoloration of the right breast-seems to be improving. GASTROINTESTINAL: Abdomen soft, non-tender, nondistended. Normal, active bowel sounds MUSCULOSKELETAL: Extremities without clubbing, cyanosis, or edema. NEURO: Alert & Oriented x4 to person, place, time, situation. Moves all ext x4 Procedures none Medications and IVs Inpatient Medications Acetaminophen (Tylenol) 650 mg Q4H PRN PO FEVER Last administered on 11/11/17at 21:26; Start 11/07/17 at 13:15 Acetaminophen/ Hydrocodone Bitart ([place] 5-325 Mg) 1 tab Q4H PRN PO PAIN 1-5 Last administered on 11/10/17at 17:02; Start 11/07/17 at 00:45 Acetaminophen/ Hydrocodone Bitart ([place] 10-325 Mg) 1 tab Q4H PRN PO PAIN 6-10 Last administered on 11/11/17at 13:12; Start 11/07/17 at 00:45 Albuterol/ Ipratropium (Duoneb Neb) 1 ampule Q4HR NEB PRN NEB SHORTNESS OF BREATH; Start 11/07/17 at 00:45 Calcium Carbonate (Tums Chew) 500 mg Q2H PRN CHEW HEARTBURN; Start 11/10/17 at 22:00 Cefazolin Sodium/ Dextrose 50 ml @ 100 mls/hr Q8H IV Last administered on 11/12at 04:59; Start 11/08/17 at 20:00 Dextrose (D50w (Vial) Inj) 50 ml UNSCH PRN IV PUSH HYPOGLYCEMIA-SEE COMMENTS; Start 11/07/17 at 12:30 Diphenhydramine HCl (Benadryl Inj) 50 mg ONCE ONCE IV PUSH Last administered on 11/06/17at 22:42; Start 11/06/17 at 22:00; Stop 11/06/17 at 22:04; Status DC Fluconazole (Diflucan) 200 mg Q24H PO Last administered on 11/11/17at 21:20; Start 11/08/17 at 20:00 Furosemide (Lasix) 40 mg DAILY PO Last administered on 11/11/17at 08:11; Start 11/07/17 at 09:00 Gabapentin (Neurontin) 600 mg HS PO Last administered on 11/11/17at 21:20; Start 11/07/17 at 21:00 Glucagon (Glucagon Inj) 1 mg UNSCH PRN OTHER HYPOGLYCEMIA-SEE COMMENTS; Start 11/07/17 at 12:30 Ibuprofen (Motrin) 600 mg ONCE ONCE PO ; Start 11/06/17 at 22:00; Stop at 22:04; Status DC Insulin Aspart (NovoLOG SUPPLEMENTAL SCALE) 1 ACHS SLIDING SCALE SQ Last administered on 11/12/17at 08:31; Start 11/07/17 at 17:00 Insulin Detemir (Levemir Inj) 12 units Q12HR SQ Last administered on 11/12/17at 08:31; Start 11/11/17 at 21:00 Insulin Human Isoph/Insulin Regular (NovoLIN 70/30 INJ) 50 units DAILY SQ Last administered on 11/07/17at 08:20; Start 11/07/17 at 09:00; Status Future Hold Insulin Human Regular (NovoLIN R INJ) 3 units STAT ONCE IV PUSH Last administered on 11/06/17at 23:14; Start 11/06/17 at 22:45; Stop 11/06/17 at 22:46 ; Status DC Levofloxacin/ Dextrose 150 ml @ 100 mls/hr Q24H IV Last administered on at 08:21; Start 11/07/17 at 09:00; Stop 11/08/17 at 18:08; Status DC Losartan Potassium (Cozaar) 50 mg DAILY PO Last administered on 11/12/17at 08:30 ; Start 11/07/17 at 09:00 Magnesium Hydroxide (Milk Of Magnesia Liq) 30 ml DAILY PRN PO CONSTIPATION Last administered on 11/10/17at 21:47; Start 11/09/17 at 16:45 Metformin HCl (Glucophage) 1,000 mg BIDPC PO Last administered on 11/12/17at 08: 30; Start 11/07/17 at 09:00 Metoclopramide HCl (Reglan Inj) 10 mg ONCE ONCE IV PUSH Last administered on at 22:42; Start 11/06/17 at 22:00; Stop 11/06/17 at 22:04; Status DC Naloxone HCl (Narcan Inj) 0.4 mg UNSCH PRN IV PUSH SEE LABEL COMMENTS; Start at 22:45 Nystatin (Mycostatin Cream) 1 applic Q6HR TOPICAL Last administered on at 05:00; Start 11/09/17 at 00:00 Patient Own Medication PT OWN MED: Tabl... DAILY PO ; Start 11/07/17 at 09:00; Status Future Hold Pharmacy Profile Note 0 ml @ 0 mls/hr UNSCH OTHER ; Start 11/07/17 at 17:30; Stop 11/08/17 at 18:08; Status DC Piperacillin Sod/ Tazobactam Sod 100 ml @ 200 mls/hr ONCE ONCE IV Last administered on 11/06/17at 22:42; Start 11/06/17 at 22:00; Stop 11/06/17 at 22:29 ; Status DC Potassium Chloride (KCl) 30 meq ONCE ONCE PO ; Start 11/11/17 at 13:00; Stop at 13:01; Status DC Sodium Chloride 1,000 ml @ 125 mls/hr Q8H IV Last administered on 11/12/17at 02 :50; Start 11/07/17 at 04:15 Sodium Chloride (NS Flush) 2 ml BID IV FLUSH Last administered on 11/09/17at 20: 46; Start 11/07/17 at 09:00 Vancomycin HCl 1500 mg/Sodium Chloride 515 ml @ 257.5 mls/ hr Q12HR ONCE IV ; Start 11/08/17 at 09:00; Stop 11/08/17 at 10:59; Status DC Vancomycin HCl 2000 mg/Sodium Chloride 520 ml @ 250 mls/hr Q12H IV Last administered on 11/08/17at 15:12; Start 11/08/17 at 15:00; Stop 11/08/17 at 18:08 ; Status DC Vancomycin HCl 2500 mg/Sodium Chloride 525 ml @ 250 mls/hr NOW ONCE IV Last administered on 11/07/17at 19:00; Start 11/07/17 at 19:00; Stop 11/07/17 at 21:05 ; Status DC Vancomycin/Sodium Chloride 200 ml @ 200 mls/hr Q12H IV ; Start 11/07/17 at 17: 30; Stop 11/07/17 at 18:38; Status DC A/P Problem List: (1) Sepsis ICD Code: A41.9 - Sepsis, unspecified organism (2) Cellulitis of right breast ICD Code: N61.0 - Mastitis without abscess (3) Hypertension ICD Code: I10 - Essential (primary) hypertension (4) Diabetes ICD Code: E11.9 - Type 2 diabetes mellitus without complications (5) Leukocytosis ICD Code: D72.829 - Elevated white blood cell count, unspecified Assessment and Plan Sepsis due to Right breast cellulitis - improving. Breast ultrasound reviewed and shows no evidence of an abscess breast ultrasound was repeated with no fluid collection. - ID consult appreciated; started on Ancef and Fluconazole; d/w ID and will switch to po Keflex and topical Nystatin upon discharge. -surgery follow-up appreciated and cleared for discharge with outpatient f/u. -mammogram as outpatient. sob/ hypoxemia; will check CXR- keep on oxygen to keep O2 sat > 90%- neb treatment. Diabetes- uncontrolled. -hold insulin 70/30. -increase levemir to 12 units subq bid- continue accu-check with SSI. -continue to monitor and adjust the regimen as needed. Hypertension, chronic -Resume home medications and monitor vitals The patient currently on losartan. CKD, creatinine 1.2 at baseline -Resumed home medications -Avoid nephrotoxins Hypokalemia;will replace; BMP today pending. Discharge Planning dc home - tomorrow if stable - CXR pending. Problem Qualifiers (1) Sepsis: Qualified Codes: A41.9 - Sepsis, unspecified organism (2) Diabetes: Qualified Codes: E11.65 - Type 2 diabetes mellitus with hyperglycemia; Z79.4 - snf (current) use of insulin (3) Leukocytosis: Qualified Codes: D72.829 - Elevated white blood cell count, unspecified Benton Ruiz MD Nov 12, 2017 10:29
[2017-11-12] MEDS ORDERED: CEPH-460 PO (10:39)
[2017-11-12] MEDS ORDERED: NYST15T TOPICAL (10:39)
--- NOTE | 2017-11-12 10:41 | HHI.DS ---
Discharge Summary Admission Date Nov 06, 2017 at 22:45 Discharge Date: Nov 12, 2017 Admitting Diagnosis right chest wall and right breast cellulitis, IDDM (1) Sepsis ICD Code: A41.9 - Sepsis, unspecified organism Diagnosis: Principal (2) Cellulitis of right breast ICD Code: N61.0 - Mastitis without abscess Diagnosis: Principal (3) Hypertension ICD Code: I10 - Essential (primary) hypertension Diagnosis: Secondary (4) Diabetes ICD Code: E11.9 - Type 2 diabetes mellitus without complications Diagnosis: Secondary (5) Leukocytosis ICD Code: D72.829 - Elevated white blood cell count, unspecified Diagnosis: Principal Procedures none Brief History - From Admission 52-year-old female with a history of hypertension, diabetes, diabetic neuropathy presented to the ED with complaints of painful lump under her right breast. Patient states on Sunday she noticed a right lump under her right breast that is very painful, throbbing in nature, 8 out of 10, worse with movement with associated nausea, fever and chills. Patient states 3 years ago she had an infection in her right foot in which she had similar symptoms so she came to the hospital. She is currently on insulin at home and states her sugars are not controlled but she does follow up with PCP. She denies any chest pain. She does state she gets shortness of breath with exertion since Sunday. CBC/BMP: 11/10/17 0944 11/11/17 0419 Significant Findings Laboratory Tests Test 11/10/17 09:44 11/11/17 04:19 White Blood Count 13.1 TH/MM3 (4.0-11.0) Red Blood Count 3.48 MIL/MM3 (4.00-5.30) Hemoglobin 10.3 GM/DL (11.6-15.3) Hematocrit 31.6 % (35.0-46.0) Neutrophils (%) (Auto) 82.8 % (16.0-70.0) Lymphocytes (%) (Auto) 6.1 % (9.0-44.0) Monocytes (%) (Auto) 10.5 % (0.0-8.0) Neutrophils # (Auto) 10.8 TH/MM3 (1.8-7.7) Lymphocytes # (Auto) 0.8 TH/MM3 (1.0-4.8) Monocytes # (Auto) 1.4 TH/MM3 (0-0.9) Blood Urea Nitrogen 6 MG/DL (7-18) Random Glucose 311 MG/DL (74-106) Potassium Level 2.9 MEQ/L (3.5-5.1) 3.2 MEQ/L (3.5-5.1) Chloride Level 97 MEQ/L (98-107) Imaging Last Impressions Breast Ultrasound 11/09/17 0000 Signed Impressions: Service Date/Time: Thursday, November 09, 2017 16:56 - CONCLUSION: No liquefied abscess observed. Isolated ultrasound evaluation of the breast without mammographic correlate is very insensitive for detecting malignancy. Jelani Castelan Jr., MD PE at Discharge GENERAL: This is a well-nourished, well-developed patient, in no apparent distress. CARDIOVASCULAR: Regular rate and regular rhythm without murmurs, gallops, or rubs. RESPIRATORY: Clear to auscultation. Breath sounds equal bilaterally. No wheezes , rales, or rhonchi. breast; mild tenderness and skin discoloration of the right breast-seems to be improving. GASTROINTESTINAL: Abdomen soft, non-tender, nondistended. Normal, active bowel sounds MUSCULOSKELETAL: Extremities without clubbing, cyanosis, or edema. NEURO: Alert & Oriented x4 to person, place, time, situation. Moves all ext x4 Hospital Course patient was admitted with sepsis and cellulitis of the right breast. she was started on IV antibiotics. breast US with no abscess. cellulitis has much improved on IV antibiotics. she will be discharged home with oral antibiotics with f/u with pcp and general surgery with mammogram as outpatient. Pt Condition on Discharge: Stable Discharge Disposition: Discharge Home Discharge Time: <= 30 minutes Discharge Instructions DIET: Follow Instructions for: Heart Healthy Diet, Diabetic Diet Activities you can perform: Regular-No Restrictions Follow up Referrals: PCP Follow-up Surgical New Medications: Cephalexin (Keflex) 500 Mg Cap 500 MG PO Q6H for Infection for 12 Days, #48 CAP 0 Refills Nystatin Topical (Nystatin Topical) 100,000 unit/gm Cream 1 APPLIC TOPICAL Q6HR for infection for 10 Days, TUBE 0 Refills Continued Medications: Dapagliflozin (Farxiga) 10 Mg Tab 10 MG PO DAILY for Blood Sugar Management, #30 TAB 0 Refills Furosemide (Furosemide) 40 Mg Tab 40 MG PO DAILY, #30 TAB 0 Refills Gabapentin (Gabapentin) 600 Mg Tab 600 MG PO HS, #30 TAB 0 Refills Insulin Human Isophane-Regular 70-30 Inj (Novolin 70-30 Inj) 1,000 Unit/10 Ml Vial 1 UNITS SQ for Blood Sugar Management, ML 0 Refills Insulin Human Isophane-Regular 70-30 Inj (Novolin 70-30 Inj) 1,000 Unit/10 Ml Vial 50 UNITS SQ DAILY for Blood Sugar Management, ML 0 Refills Insulin Human Isophane-Regular 70-30 Inj (Novolin 70-30 Inj) 1,000 Unit/10 Ml Vial 45 UNITS SQ HS for Blood Sugar Management, ML 0 Refills Losartan (Cozaar) 50 Mg Tab 40 MG PO DAILY for Blood Pressure Management, #30 TAB 0 Refills Metformin (Metformin) 1,000 Mg Tab 1000 MG PO BIDPC for Blood Sugar Management, #60 TAB 0 Refills With meals Potassium Chloride ER (Potassium Chloride ER) 8 Meq Cap 8 MEQ PO DAILY for Electrolyte Replacement, #30 CAP 0 Refills Benton Ruiz MD Nov 12, 2017 10:41
--- NOTE | 2017-11-12 10:49 | HHI.IDPN ---
Subjective Subjective Remarks Chart reviewed Ms. Sanchez is a 52-year-old female with past medical history significant for diabetes, diabetic neuropathy, hypertension. There is background patient presents to the emergency department with complaints of painful lump under her right breast as well as fever and chills. Patient reports she has not had a mammogram in over 2 years now. She denies any discharge from the nipple she denies any change in the shape of her nipple. She reports wearing underwire bras washing the bar every other use. She thinks she may have abraded her breast skin during cleaning. Patient reports she noticed a lump under her right breast approximately a week prior to admission. She then noticed that this erythema started spreading to the outer quadrants of her right breast. She reports the pain as throbbing in nature 8 out of 10 worse with movement. She reports fever and chills associated with nausea. The only other time she has had an infection was in the right foot with similar symptoms when she was admitted. Patient is a known diabetic she is currently on insulin at home and her blood sugars are not controlled. Overnight events reviewed. No fevers No rash No diarrhea No abscess on ultrasound of the breast She thinks her swelling and pain improved WBC down to 13 K Antibiotics Ancef IV Diflucan oral Lines Line sites with no e.o infection. Past Medical History reviewed. Allergies: Coded Allergies: No Known Allergies (Verified Allergy, Unknown, 11/06/17) Objective . Vital Signs Date Time Temp Pulse Resp B/P (MAP) Pulse Ox O2 Delivery O2 Flow Rate FiO2 11/12/17 08:30 Room Air 11/12/17 08:00 99.2 100 20 194/84 (120) 88 11/12/17 04:01 85 11/12/17 04:00 99.8 96 21 94 158/86 (110) 11/12/17 04:00 Room Air 11/12/17 00:11 106 11/12/17 00:00 98.7 95 20 137/71 (93) 95 11/12/17 00:00 Room Air 11/11/17 21:06 100 11/11/17 20:00 99.6 104 22 162/77 (105) 95 11/11/17 20:00 Room Air 11/11/17 16:00 98.7 98 20 147/70 (95) 95 1/21/18 16:00 88 11/11/17 16:00 Room Air 11/11/17 12:00 Room Air 11/11/17 12:00 96 11/11/17 12:00 97.8 100 18 151/83 (105) 92 . Laboratory Tests Test 11/11/17 04:19 Potassium Level 3.2 MEQ/L Imaging Last Impressions Breast Ultrasound 11/09/17 0000 Signed Impressions: Service Date/Time: Thursday, November 09, 2017 16:56 - CONCLUSION: No liquefied abscess observed. Isolated ultrasound evaluation of the breast without mammographic correlate is very insensitive for detecting malignancy. Jelani Castelan Jr., MD Physical Exam GENERAL: Obese, well-developed patient, in no apparent distress. SKIN: No rashes, ecchymoses or lesions. Cool and dry. HEAD: Atraumatic. Normocephalic. No temporal or scalp tenderness. EYES: Pupils equal round and reactive. Extraocular motions intact. No scleral icterus. No injection or drainage. ENT: Nose without bleeding, purulent drainage or septal hematoma. Throat without erythema, tonsillar hypertrophy or exudate. Uvula midline. Airway patent. NECK: Trachea midline. No JVD or lymphadenopathy. Supple, nontender, no meningeal signs. CARDIOVASCULAR: Regular rate and rhythm without murmurs, gallops, or rubs. RESPIRATORY: Clear to auscultation. Breath sounds equal bilaterally. No wheezes , rales, or rhonchi. GASTROINTESTINAL: Abdomen soft, non-tender, nondistended. No hepato-splenomegaly , or palpable masses. No guarding. MUSCULOSKELETAL: Extremities without clubbing, cyanosis, or edema. No joint tenderness, effusion, or edema noted. No calf tenderness. Negative Homans sign bilaterally. Right breast larger than left marsha outer quadrants. Right outer quadrants with erythema, induration and moderate tenderness. Significant induration in lower inner and pouter quadrants w/o dluctuance No nipple d/c NEUROLOGICAL: Awake and alert. Non focal exam. Psych cooperative IV line sites with no e.o infection. Assessment & Plan Remarks Sepsis present on admission Right breast cellulitis, phlegmone - no clinical or radiological e/o abscess - clinically improving locally and systemically Diabetes uncontrolled Diabetic neuropathy Obesity BMI 41.7 Recommendations: DC Ancef IV Ok to discharge home on oral keflex for anther 10 days. Continue Diflucan oral for another 5 days. Continue nystatin cream local application Patient complains of shortness of breath on exertion. Sats down to 88 this am. dw to check CXR and if PNA let me know. Patient is a smoker and may benefit from COPD exacerbation treatment. Follow up with Surgeon as outpt. Follow up with Dr.Reba Hayden Infectious disease: Dr.Reba Hayden Connie Rojas MD Nov 12, 2017 10:49
[2017-11-12] MEDS ORDERED: DIFL100T PO (10:50)
[2017-11-12] MEDS ORDERED: RESP: ALBUTEROL 2.5 MG/IPRATROPIUM 0.5 MG NEB (PRN) NEB (11:15)
[2017-11-12] MEDS ORDERED: NIFEdipine 30 MG SUSTAINED RELEASE TAB PO ONE (11:15)
[2017-11-12 12:29] LABS: AUTOMATED NEUTROPHIL # 7.9 TH/MM3 (1.8-7.7); BASOPHIL # 0.1 TH/MM3 (0-0.2); BASOPHIL % 0.5 % (0.0-2.0); EOSINOPHIL # 0.1 TH/MM3 (0-0.4); EOSINOPHIL % 0.6 % (0.0-4.0); HEMATOCRIT 42.2 % (35.0-46.0); HEMOGLOBIN 13.9 GM/DL (11.6-15.3); LYMPH % 7.3 % (9.0-44.0); LYMPHOCYTE # 0.7 TH/MM3 (1.0-4.8); MEAN CELL VOLUME 89.6 FL (80.0-100.0); MEAN CORPUSCULAR HEMOGLOBIN 29.6 PG (27.0-34.0); MEAN PLATELET VOLUME 7.7 FL (7.0-11.0); MONOCYTE # 0.7 TH/MM3 (0-0.9); NEUT % 84.6 % (16.0-70.0); PLATELET COUNT 335 TH/MM3 (150-450); RED BLOOD COUNT 4.71 MIL/MM3 (4.00-5.30); RED CELL DISTRIBUTION WIDTH 15.8 % (11.6-17.2); WHITE BLOOD COUNT 9.3 TH/MM3 (4.0-11.0)
[2017-11-12 12:34] LABS: CALCIUM 8.4 MG/DL (8.5-10.1); CREATININE 0.84 MG/DL (0.50-1.00)
--- NOTE | 2017-11-12 13:34 | RADRPT ---
EXAM DATE/TIME: 11/12/2017 11:08 [facility] COMPARISON: No previous studies available for comparison. INDICATIONS : Short of Breath MEDICAL HISTORY : Hypercholesterolemia. Hypertension. Diabetes. SURGICAL HISTORY : section. Dental surgery. ENCOUNTER: Subsequent ACUITY: 1 week PAIN SCORE: 5/10 LOCATION: Bilateral chest FINDINGS: PA and lateral views of the chest demonstrate the lungs to be symmetrically aerated without evidence of mass, infiltrate or effusion. The cardiomediastinal contours are unremarkable. Osseous structure s are intact. CONCLUSION: No acute disease. Ifeanyi Wilder MD on November 12, 2017 at 13:16 Board Certified Radiologist. This report was verified electronically.
[2017-11-12] MEDS ORDERED: POTASSIUM CHLORIDE 10 MEQ CONTROLLED RELEASE TAB PO ONE ×2 (13:45→18:00)
[2017-11-12] MEDS: GABAPENTIN 300 MG CAP PO SCH (21:14)
[2017-11-12] MEDS: FLUCONAZOLE 200 MG TAB PO SCH (21:14)
[2017-11-12] MEDS: ACETAMINOPHEN 325 MG TAB PO PRN (21:16)
[2017-11-13] VITALS (10 sets, daily range): BP systolic 134–163; BP diastolic 67–81; PULSE 92–98; RESP 18–20; TEMP 97.8–99.1; O2SAT 92–96
[2017-11-13] MEDS: NYSTATIN 100,000 UNIT/GM CREAM 15 GM TOPICAL SCH ×5 (00:02→21:52)
[2017-11-13] MEDS: ceFAZolin 2 GM PREMIX 50 ML IV SCH ×2 (04:56→12:00)
--- NOTE | 2017-11-13 07:42 | HHI.PR ---
Addendum to Inpatient Note Addendum Reason: Additional Documentation Additional Information CXR reviewed no pneumonia. ID discharge plan [id number] and in my last note. Will sign off please call back if any change in clinical condition or questions. Connie Rojas MD Nov 13, 2017 07:42
[2017-11-13] MEDS: INSULIN ASPART SUPPLEMENTAL SCALE SQ SCH ×4 (08:00→21:00)
--- NOTE | 2017-11-13 08:58 | HHI.PR ---
Subjective Remarks in no acute distress. but has some exertional dyspnea. no chest pain, fever. Objective Vitals Vital Signs Date Time Temp Pulse Resp B/P (MAP) Pulse Ox O2 Delivery O2 Flow Rate FiO2 11/13/17 08:30 94 11/13/17 04:00 Room Air 11/13/17 04:00 97.9 95 20 148/79 (102) 95 11/13/17 03:50 98 11/13/17 00:00 Room Air 11/13/17 00:00 97.8 94 18 134/76 (95) 94 11/12/17 23:48 88 11/12/17 22:25 94 11/12/17 20:00 Room Air 11/12/17 20:00 99.2 101 20 129/64 (85) 95 11/12/17 19:44 100 11/12/17 16:00 99.3 117 20 135/63 (87) 96 11/12/17 16:00 102 11/12/17 12:00 106 11/12/17 11:00 99.6 101 19 177/79 (111) 93 I/O 11/12/17 11/12/17 11/12/17 11/13/17 11/13/17 11/13/17 06:59 14:59 22:59 06:59 14:59 22:59 Intake Total 530 ml 820 ml 530 ml Balance 530 ml 820 ml 530 ml Intake Oral 480 ml 720 ml 480 ml IV Total 50 ml 100 ml 50 ml # Voids 6 3 5 # Bowel Movements 0 1 2 Result Diagram: 11/12/17 1139 11/12/17 1139 Imaging Last Impressions Chest X-Ray 11/12/17 0000 Signed Impressions: Service Date/Time: Sunday, November 12, 2017 11:08 - CONCLUSION: No acute disease. Ifeanyi Wilder MD Breast Ultrasound 11/09/17 0000 Signed Impressions: Service Date/Time: Thursday, November 09, 2017 16:56 - CONCLUSION: No liquefied abscess observed. Isolated ultrasound evaluation of the breast without mammographic correlate is very insensitive for detecting malignancy. Jelani Castelan Jr., MD Objective Remarks GENERAL: This is a well-nourished, well-developed patient, in no apparent distress. CARDIOVASCULAR: Regular rate and regular rhythm without murmurs, gallops, or rubs. RESPIRATORY: Clear to auscultation. Breath sounds equal bilaterally. No wheezes , rales, or rhonchi. breast; mild tenderness and skin discoloration of the right breast-seems to be improving. GASTROINTESTINAL: Abdomen soft, non-tender, nondistended. Normal, active bowel sounds MUSCULOSKELETAL: Extremities without clubbing, cyanosis, or edema. NEURO: Alert & Oriented x4 to person, place, time, situation. Moves all ext x4 Procedures none Medications and IVs Inpatient Medications Acetaminophen (Tylenol) 650 mg Q4H PRN PO FEVER Last administered on 11/12/17at 21:16; Start 11/07/17 at 13:15 Acetaminophen/ Hydrocodone Bitart (Echo 5-325 Mg) 1 tab Q4H PRN PO PAIN 1-5 Last administered on 11/10/17at 17:02; Start 11/07/17 at 00:45 Acetaminophen/ Hydrocodone Bitart (Echo 10-325 Mg) 1 tab Q4H PRN PO PAIN 6-10 Last administered on 11/11/17at 13:12; Start 11/07/17 at 00:45 Albuterol/ Ipratropium (Duoneb Neb) 1 ampule Q6HR NEB PRN NEB SHORTNESS OF BREATH; Start 11/12/17 at 11:15 Calcium Carbonate (Tums Chew) 500 mg Q2H PRN CHEW HEARTBURN; Start 11/10/17 at 22:00 Cefazolin Sodium/ Dextrose 50 ml @ 100 mls/hr Q8H IV Last administered on 11/13at 04:56; Start 11/08/17 at 20:00 Dextrose (D50w (Vial) Inj) 50 ml UNSCH PRN IV PUSH HYPOGLYCEMIA-SEE COMMENTS; Start 11/07/17 at 12:30 Diphenhydramine HCl (Benadryl Inj) 50 mg ONCE ONCE IV PUSH Last administered on 11/06/17at 22:42; Start 11/06/17 at 22:00; Stop 11/06/17 at 22:04; Status DC Fluconazole (Diflucan) 200 mg Q24H PO Last administered on 11/12/17at 21:14; Start 11/08/17 at 20:00 Furosemide (Lasix) 40 mg DAILY PO Last administered on 11/11/17at 08:11; Start 11/07/17 at 09:00 Gabapentin (Neurontin) 600 mg HS PO Last administered on 11/12/17at 21:14; Start 11/07/17 at 21:00 Glucagon (Glucagon Inj) 1 mg UNSCH PRN OTHER HYPOGLYCEMIA-SEE COMMENTS; Start 11/07/17 at 12:30 Ibuprofen (Motrin) 600 mg ONCE ONCE PO ; Start 11/06/17 at 22:00; Stop at 22:04; Status DC Insulin Aspart (NovoLOG SUPPLEMENTAL SCALE) 1 ACHS SLIDING SCALE SQ Last administered on 11/12/17at 21:15; Start 11/07/17 at 17:00 Insulin Detemir (Levemir Inj) 12 units Q12HR SQ Last administered on 11/12/17at 21:14; Start 11/11/17 at 21:00 Insulin Human Isoph/Insulin Regular (NovoLIN 70/30 INJ) 50 units DAILY SQ Last administered on 11/07/17at 08:20; Start 11/07/17 at 09:00; Status Future Hold Insulin Human Regular (NovoLIN R INJ) 3 units STAT ONCE IV PUSH Last administered on 11/06/17at 23:14; Start 11/06/17 at 22:45; Stop 11/06/17 at 22:46 ; Status DC Levofloxacin/ Dextrose 150 ml @ 100 mls/hr Q24H IV Last administered on at 08:21; Start 11/07/17 at 09:00; Stop 11/08/17 at 18:08; Status DC Losartan Potassium (Cozaar) 50 mg DAILY PO Last administered on 11/12/17at 08:30 ; Start 11/07/17 at 09:00 Magnesium Hydroxide (Milk Of Magnesia Liq) 30 ml DAILY PRN PO CONSTIPATION Last administered on 11/10/17at 21:47; Start 11/09/17 at 16:45 Metformin HCl (Glucophage) 1,000 mg BIDPC PO Last administered on 11/12/17at 18: 51; Start 11/07/17 at 09:00 Metoclopramide HCl (Reglan Inj) 10 mg ONCE ONCE IV PUSH Last administered on at 22:42; Start 11/06/17 at 22:00; Stop 11/06/17 at 22:04; Status DC Naloxone HCl (Narcan Inj) 0.4 mg UNSCH PRN IV PUSH SEE LABEL COMMENTS; Start at 22:45 Nifedipine (Procardia Xl) 30 mg ONCE ONCE PO Last administered on 11/12/17at 14 :46; Start 11/12/17 at 11:15; Stop 11/12/17 at 11:39; Status DC Nystatin (Mycostatin Cream) 1 applic Q6HR TOPICAL Last administered on at 05:02; Start 11/09/17 at 00:00 Patient Own Medication PT OWN MED: Tabl... DAILY PO ; Start 11/07/17 at 09:00; Status Future Hold Pharmacy Profile Note 0 ml @ 0 mls/hr UNSCH OTHER ; Start 11/07/17 at 17:30; Stop 11/08/17 at 18:08; Status DC Piperacillin Sod/ Tazobactam Sod 100 ml @ 200 mls/hr ONCE ONCE IV Last administered on 11/06/17at 22:42; Start 11/06/17 at 22:00; Stop 11/06/17 at 22:29 ; Status DC Potassium Chloride (KCl) 30 meq ONCE ONCE PO Last administered on 11/12/17at 18 :51; Start 11/12/17 at 18:00; Stop 11/12/17 at 18:01; Status DC Sodium Chloride 1,000 ml @ 125 mls/hr Q8H IV Last administered on 11/12/17at 02 :50; Start 11/07/17 at 04:15; Stop 11/12/17 at 10:48; Status DC Sodium Chloride (NS Flush) 2 ml BID IV FLUSH Last administered on 11/12/17at 21: 14; Start 11/07/17 at 09:00 Vancomycin HCl 1500 mg/Sodium Chloride 515 ml @ 257.5 mls/ hr Q12HR ONCE IV ; Start 11/08/17 at 09:00; Stop 11/08/17 at 10:59; Status DC Vancomycin HCl 2000 mg/Sodium Chloride 520 ml @ 250 mls/hr Q12H IV Last administered on 11/08/17at 15:12; Start 11/08/17 at 15:00; Stop 11/08/17 at 18:08 ; Status DC Vancomycin HCl 2500 mg/Sodium Chloride 525 ml @ 250 mls/hr NOW ONCE IV Last administered on 11/07/17at 19:00; Start 11/07/17 at 19:00; Stop 11/07/17 at 21:05 ; Status DC Vancomycin/Sodium Chloride 200 ml @ 200 mls/hr Q12H IV ; Start 11/07/17 at 17: 30; Stop 11/07/17 at 18:38; Status DC A/P Problem List: (1) Sepsis ICD Code: A41.9 - Sepsis, unspecified organism (2) Cellulitis of right breast ICD Code: N61.0 - Mastitis without abscess (3) Hypertension ICD Code: I10 - Essential (primary) hypertension (4) Diabetes ICD Code: E11.9 - Type 2 diabetes mellitus without complications (5) Leukocytosis ICD Code: D72.829 - Elevated white blood cell count, unspecified Assessment and Plan Sepsis due to Right breast cellulitis - improving. Breast ultrasound reviewed and shows no evidence of an abscess breast ultrasound was repeated with no fluid collection. - ID consult appreciated; started on Ancef and Fluconazole; previously d/w ID and will switch to po Keflex, diflucan and topical Nystatin upon discharge. -surgery follow-up appreciated and cleared for discharge with outpatient f/u. -mammogram as outpatient. sob/ hypoxemia CXR with no acute disease. wak test could not be performed yesterday since the patient became tachycardic and diaphoretic. will chech CTA chest to r/o PE will continue with oxygen and neb treatments as needed. of note patient has a long history of smoking; will need PFT as outpatient and this was d/w the patient. Diabetes- -hold insulin 70/30. -on levemir to 12 units subq bid- continue accu-check with SSI. -continue to monitor and adjust the regimen as needed. Hypertension, chronic -Resume home medications and monitor vitals The patient currently on losartan. CKD, creatinine 1.2 at baseline -Resumed home medications -Avoid nephrotoxins Hypokalemia;replaced. Discharge Planning still with some exertional dyspnea and tachycardia. will check CTA chest to r/o PE. not ready for discharge today. Problem Qualifiers (1) Sepsis: Qualified Codes: A41.9 - Sepsis, unspecified organism (2) Diabetes: Qualified Codes: E11.65 - Type 2 diabetes mellitus with hyperglycemia; Z79.4 - intermission coordinator (current) use of insulin (3) Leukocytosis: Qualified Codes: D72.829 - Elevated white blood cell count, unspecified Benton Ruiz MD Nov 13, 2017 08:58
[2017-11-13] MEDS: SODIUM CHLORIDE 0.9% FLUSH 10 ML FLUSH IV FLUSH SCH ×2 (09:00→21:47)
[2017-11-13] MEDS: INSULIN DETEMIR 100 UNITS/ML VIAL SQ SCH ×2 (09:00→21:00)
[2017-11-13] MEDS: POTASSIUM CHLORIDE 8 MEQ CAP PO SCH (09:11)
[2017-11-13] MEDS: LOSARTAN 50 MG TAB PO SCH (09:11)
[2017-11-13] MEDS: FUROSEMIDE 40 MG TAB PO SCH (09:11)
[2017-11-13] MEDS: metFORMIN HCL 500 MG TAB PO SCH ×2 (09:13→15:41)
[2017-11-13] MEDS ORDERED: IOHEXOL 350 MG/ML 10 ML VIAL (for RAD DIAG) IVCONTRAST ONE (10:51)
--- NOTE | 2017-11-13 11:23 | RADRPT ---
EXAM DATE/TIME: 11/13/2017 10:45 [facility] COMPARISON: No previous studies available for comparison. INDICATIONS : Intermittent chest pain. IV CONTRAST: 92 cc Omnipaque 350 (iohexol) IV RADIATION DOSE: 23.21 CTDIvol (mGy) MEDICAL HISTORY : Hypertension. Diabetes SURGICAL HISTORY : None. ENCOUNTER: Initial ACUITY: 2 weeks PAIN SCALE: 3/10 LOCATION: Bilateral cranial TECHNIQUE: Volumetric scanning of the chest was performed using a pulmonary embolism protocol MIP images were re constructed. Using automated exposure control and adjustment of the mA and/or kV according to patien t size, radiation dose was kept as low as reasonably achievable to obtain optimal diagnostic quality images. DICOM format image data is available electronically for review and comparison. Follow-up recommendations for detected pulmonary nodules are based at a minimum on nodule size and pa tient risk factors according to Fleischner Society Guidelines. FINDINGS: PULMONARY ARTERIES: There is suboptimal opacification of the pulmonary arteries beyond the proximal segmental level. Ther e is a focal subsegmental filling defect in a right lower lobe pulmonary artery branch that appears t o be out of proportion to the degree of under opacification in the remaining subsegmental branches. T his may be due to volume averaging artifact with hilar node. LUNGS: Mild patchy bilateral diffuse groundglass opacities with associated Maddy B-lines (interlobular sept al thickening). Minimal right lung base airspace consolidation. PLEURAE: There is no pleural thickening or pleural effusion. MEDIASTINUM: Heart is grossly unremarkable without pericardial effusion. Subcentimeter bilateral hilar nodes which do not meet CT size criteria. 1.7 cm subcarinal node. MUSCULOSKELETAL: Multiple slightly prominent right axillary nodes with the largest measuring up to 1.2 cm in short axi s diameter. There is inflammatory stranding and a partially imaged collection of air and likely fluid in the right breast. MISCELLANEOUS: The visualized upper abdominal organs demonstrate no acute abnormality. CONCLUSION: 1. Suboptimal pulmonary artery examination with inadequate opacification of subsegmental pulmonary ar pamella branches. There is one subsegmental right lower lobe pulmonary artery branch with focal filling defect out of proportion to the degree of under opacification in the remaining subsegmental branches. This may be due to volume averaging artifact although a small pulmonary artery embolism in this bran ch cannot be excluded. Consider ultrasound examination of the lower extremities to evaluate for lower extremity DVT. If patient has DVT, would consider this a small pulmonary artery embolism. In the abs ence of DVT, this finding is nonspecific and of uncertain significance. 2. Diffuse inflammatory stranding with partially imaged collection of air and likely fluid in the rig ht breast. Patient was recently evaluated for abscess on 11/09/2017. Query surgical intervention/debri digna? If no intervention has been performed, findings are concerning for possible interval developm ent of a breast abscess. Consider repeat ultrasound examination for further evaluation. 3. Single prominent subcarinal lymph node, nonspecific and likely reactive in etiology. Blil Pierre MD on November 13, 2017 at 11:05 Board Certified Radiologist. This report was verified electronically.
[2017-11-13] MEDS ORDERED: LIDOCAINE HCL 1% 20 ML VIAL ONE (14:14)
--- NOTE | 2017-11-13 14:54 | RADRPT ---
EXAM DATE/TIME: 11/13/2017 13:27 [facility] COMPARISON: No previous studies available for comparison. INDICATIONS : Thrombosis. MEDICAL HISTORY : Hypercholesterolemia. Hypertension. GERD. Sepsis. Diabetes. SURGICAL HISTORY : section. Oral surgery. ENCOUNTER: Initial ACUITY: 1 day PAIN SCORE: 0/10 LOCATION: Bilateral leg. TECHNIQUE: Venous ultrasound of the left and right leg was performed from the inguinal ligament t o the proximal calf. Real-time, color Doppler and spectral tracing, compression and augmentation norma hniques were used. FINDINGS: RIGHT LEG: There is normal compressibility of the deep venous system from the inguinal region to the proximal calf. No echogenic clot is seen in the lumen of the common femoral, femoral, popliteal, and posterior tibial veins. There is a normal response of the venous system to proximal and distal augmentation and respiration. LEFT LEG: There is normal compressibility of the deep venous system from the inguinal region to t he proximal calf. No echogenic clot is seen in the lumen of the common femoral, femoral, popliteal, and posterior tibial veins. There is a normal response of the venous system to proximal and distal a ugmentation and respiration. CONCLUSION: 1. No sonographic evidence for lower extremity DVT. 2. The Suspect findings on chest CTA exam are artifactual, due to motion artifact and suboptimal cont rast bolus timing although I cannot be definitive. Bill Pierre MD on November 13, 2017 at 14:49 Board Certified Radiologist. This report was verified electronically.
[2017-11-13] MEDS: ACETAMINOPHEN/HYDROcodone 325 MG/10 MG TAB PO PRN ×2 (15:42→21:48)
--- NOTE | 2017-11-13 15:49 | RADRPT ---
EXAM DATE/TIME: 11/13/2017 14:55 [place] COMPARISON: No previous studies available for comparison. INDICATIONS : 52 year-old female with right breast cellulitis and incidentally noted breast emphysema on chest CTA examination. Following extended discussion with treating team, the decision as to perform CT guided a spiration/drainage to allow for diagnosis and confirmation of breast abscess and also provide a disse ction path for possible D&C. MEDICATION(S): 1.) 100 mcg fentanyl (Sublimaze) IV DEVICE(S): 1.) 18 gauge Peck blunt needle 5cm 2.) 10 Fr Skater FLUID: Total volume of 50 cc of acevedo fluid was removed. Fluid was sent for laboratory ordered studies. MEDICAL HISTORY : Hypertension. Diabetes SURGICAL HISTORY : None. ENCOUNTER: Initial ACUITY: 1 day PAIN SCORE: 5/10 LOCATION: Right cranial PROCEDURE : 1. CT guided drainage of right breast abscess 2. Conscious sedation with continuous EKG and oximetry monitoring. The risks, benefits and alternatives to the procedure were explained and verbal and written consent w as obtained. Using automated exposure control and adjustment of the mA and/or kV according to patient size, radiation dose was kept as low as reasonably achievable to obtain optimal diagnostic quality i mages. The site was prepped in sterile fashion. Full sterile technique was used, including cap, ma sk, sterile gloves and gown and a large sterile sheet. Hand hygiene and 2% chlorhexidine and/or beta dine/alcohol prep was utilized per protocol for cutaneous antisepsis. The skin and subcutaneous tiss ues were infiltrated with local anesthetic solution. DICOM format image data is available electronic ally for review and comparison. Using CT guidance the prescribed site was localized. Drainage was performed using the prescribed cat heter The patient tolerated the procedure well and there were no complications. Conscious sedation was per formed with the prescribed dosages and duration as above in the presence of an independent trained ra diology nurse to assist in the monitoring of the patient. EKG and oximetry remained stable throughou t the procedure. The patient tolerated the procedure well and there were no complications. The patient was sent to pos t anesthesia recovery in stable condition. CONCLUSION: 1. CT-guided placement of 10 [place] drainage catheter in right breast abscess. 50 cc of odorous purul ent fluid was removed immediately following catheter placement. Bill Pierre MD on November 13, 2017 at 15:45 Board Certified Radiologist. This report was verified electronically.
[2017-11-13] MEDS: CALCIUM CARBONATE 500 MG CHEWABLE TAB CHEW PRN (16:14)
--- NOTE | 2017-11-13 17:34 | HHI.IDPN ---
Subjective Subjective Remarks Chart reviewed Ms. Sanchez is a 52-year-old female with past medical history significant for diabetes, diabetic neuropathy, hypertension. There is background patient presents to the emergency department with complaints of painful lump under her right breast as well as fever and chills. Patient reports she has not had a mammogram in over 2 years now. She denies any discharge from the nipple she denies any change in the shape of her nipple. She reports wearing underwire bras washing the bar every other use. She thinks she may have abraded her breast skin during cleaning. Patient reports she noticed a lump under her right breast approximately a week prior to admission. She then noticed that this erythema started spreading to the outer quadrants of her right breast. She reports the pain as throbbing in nature 8 out of 10 worse with movement. She reports fever and chills associated with nausea. The only other time she has had an infection was in the right foot with similar symptoms when she was admitted. Patient is a known diabetic she is currently on insulin at home and her blood sugars are not controlled. Reconsulted by Overnight events reviewed. No fevers No rash No diarrhea CTA pulm done for SOB to r/o PE. Findings of right breast s/o abscess. d/w to call General Surgery. Gen Surg asked for IR consult for drainage. Recd call from IR MD purulence noted in addition to gas bubbles. Antibiotics Ancef IV Diflucan oral Lines Line sites with no e.o infection. Past Medical History reviewed. Allergies: Coded Allergies: No Known Allergies (Verified Allergy, Unknown, 11/06/17) Objective . Vital Signs Date Time Temp Pulse Resp B/P (MAP) Pulse Ox O2 Delivery O2 Flow Rate FiO2 11/13/17 08:30 94 11/13/17 08:00 99.0 92 20 146/68 (94) 94 11/13/17 07:00 Room Air 11/13/17 04:00 Room Air 11/13/17 04:00 97.9 95 20 148/79 (102) 95 11/13/17 03:50 98 11/13/17 00:00 Room Air 11/13/17 00:00 97.8 94 18 134/76 (95) 94 11/12/17 23:48 88 11/12/17 22:25 94 11/12/17 20:00 Room Air 11/12/17 20:00 99.2 101 20 129/64 (85) 95 11/12/17 19:44 100 . Laboratory Tests Test 11/12/17 11:39 White Blood Count 9.3 TH/MM3 Red Blood Count 4.71 MIL/MM3 Hemoglobin 13.9 GM/DL Hematocrit 42.2 % Mean Corpuscular Volume 89.6 FL Mean Corpuscular Hemoglobin 29.6 PG Mean Corpuscular Hemoglobin Concent 33.0 % Red Cell Distribution Width 15.8 % Platelet Count 335 TH/MM3 Mean Platelet Volume 7.7 FL Neutrophils (%) (Auto) 84.6 % Lymphocytes (%) (Auto) 7.3 % Monocytes (%) (Auto) 7.0 % Eosinophils (%) (Auto) 0.6 % Basophils (%) (Auto) 0.5 % Neutrophils # (Auto) 7.9 TH/MM3 Lymphocytes # (Auto) 0.7 TH/MM3 Monocytes # (Auto) 0.7 TH/MM3 Eosinophils # (Auto) 0.1 TH/MM3 Basophils # (Auto) 0.1 TH/MM3 CBC Comment DIFF FINAL Differential Comment Hematology Comments Laboratory Tests Test 11/12/17 11:39 Blood Urea Nitrogen 5 MG/DL Creatinine 0.84 MG/DL Random Glucose 226 MG/DL Calcium Level 8.4 MG/DL Sodium Level 138 MEQ/L Potassium Level 3.3 MEQ/L Chloride Level 100 MEQ/L Carbon Dioxide Level 26.0 MEQ/L Anion Gap 12 MEQ/L Estimat Glomerular Filtration Rate 86 ML/MIN Microbiology Date/Time Source Procedure Growth Status 11/13/17 15:00 Fluid Other Fungal Smear Pending Received 11/13/17 15:00 Fluid Other Fungal Culture Pending Received 11/13/17 15:00 Abscess Breast Acid Fast Stain Pending Received 11/13/17 15:00 Abscess Breast Mycobacterial Culture Pending Received 11/13/17 15:00 Abscess Breast Gram Stain Pending Received 11/13/17 15:00 Abscess Breast Wound Culture Pending Received Imaging Last Impressions Breast Ultrasound 11/09/17 0000 Signed Impressions: Service Date/Time: Thursday, November 09, 2017 16:56 - CONCLUSION: No liquefied abscess observed. Isolated ultrasound evaluation of the breast without mammographic correlate is very insensitive for detecting malignancy. Jelani Castelan Jr., MD Physical Exam GENERAL: Obese, well-developed patient, in no apparent distress. SKIN: No rashes, ecchymoses or lesions. Cool and dry. HEAD: Atraumatic. Normocephalic. No temporal or scalp tenderness. EYES: Pupils equal round and reactive. Extraocular motions intact. No scleral icterus. No injection or drainage. ENT: Nose without bleeding, purulent drainage or septal hematoma. Throat without erythema, tonsillar hypertrophy or exudate. Uvula midline. Airway patent. NECK: Trachea midline. No JVD or lymphadenopathy. Supple, nontender, no meningeal signs. CARDIOVASCULAR: Regular rate and rhythm without murmurs, gallops, or rubs. RESPIRATORY: Clear to auscultation. Breath sounds equal bilaterally. No wheezes , rales, or rhonchi. GASTROINTESTINAL: Abdomen soft, non-tender, nondistended. No hepato-splenomegaly , or palpable masses. No guarding. MUSCULOSKELETAL: Extremities without clubbing, cyanosis, or edema. No joint tenderness, effusion, or edema noted. No calf tenderness. Negative Homans sign bilaterally. Right breast larger than left marsha outer quadrants. Right outer quadrants with erythema, induration and moderate tenderness. Significant induration in lower inner and pouter quadrants w/o dluctuance No nipple d/c NEUROLOGICAL: Awake and alert. Non focal exam. Psych cooperative IV line sites with no e.o infection. Assessment & Plan Remarks Sepsis present on admission Right breast cellulitis, phlegmone - no clinical or radiological e/o abscess - clinically improving locally and systemically Diabetes uncontrolled Diabetic neuropathy Obesity BMI 41.7 Recommendations: DC Ancef IV Start Ceftriaxone to cover GNR Add Flagyl for anaerobic coverage. Continue Diflucan oral for another 5 days. Continue nystatin cream local application Cultures for IR fluid entered by me. rubi ROBERTS MD and Hepas. Will follow along. Connie Rojas MD Nov 13, 2017 17:34
[2017-11-13] MEDS: cefTRIAXone INJ 2,000 MG in SODIUM CHLORIDE 0.9% INJ 100 ML IV SCH (18:11)
[2017-11-13] MEDS: metroNIDAZOLE 500 MG TAB PO SCH ×2 (18:16→21:47)
--- NOTE | 2017-11-13 18:51 | MB ---
cc: NENA BARRETT M.D. DATE OF CONSULTATION 11/13/2017 REASON FOR CONSULTATION Shortness of breath. HISTORY OF PRESENT ILLNESS Mrs. Sanchez is a 52-year-old -[place] female with known history of diabetes, hypertension admitted with breast cellulitis. The patient is being treated for same. She does complain of mild exertional dyspnea. No orthopnea or PND. No ankle edema. She is not presently on oxygen therapy during my evaluation. No cough, no expectoration. No hemoptysis. PAST MEDICAL HISTORY Is that of: 1. Diabetes mellitus and diabetic neuropathy and retinopathy. 2. Hypertension. 3. Cellulitis of the breast as above. MEDICATIONS At home include: 1. Lasix. 2. Gabapentin. 3. Potassium. 4. Farxiga. 5. Cozaar. 6. Metformin. 7. Insulin. ALLERGIES None known to medication. MEDICATIONS At present include: 1. Levofloxacin. 2. Vancomycin. FAMILY HISTORY Noncontributory. SOCIAL HISTORY The patient is a smoker, smokes half a pack of cigarettes a day. She drinks alcohol socially. Does not use drugs. PHYSICAL EXAMINATION GENERAL: On exam the patient is alert. VITAL SIGNS: Her temperature is 99 degrees Fahrenheit, pulse 90, respiration 20, blood pressure 140/70. HEENT: Exam unremarkable. Eyes without icterus. NECK: Without adenopathy or thyroid enlargement. Trachea central. CHEST: Without dullness to percussion, clear to auscultation. CARDIOVASCULAR: PMI distant. S1-S2 audible. No murmur or rub. ABDOMEN: Lax. Bowel sounds audible. EXTREMITIES: No clubbing, cyanosis or edema. IMAGING CT angiogram done today is with suboptimal pulmonary artery exam. There is one subsegmental left lower lobe pulmonary artery branch with a local filling defect. Fluid in the right breast is noted, question breast abscess. Nonspecific subcarinal lymph node. LABORATORY DATA White count 9.3, hemoglobin 13, hematocrit 42. Sodium 138, potassium 3.3, BUN 5, creatinine 0.8. IMPRESSION 1. Shortness of breath, etiology not clear. COPD is highly suspect. PE is suspect as well given a non conclusive CT scan. 2. Sepsis on antibiotic related to cellulitis of the right breast with question abscess formation. 3. Hypertension. 4. Diabetes mellitus. PLAN The patient's oxygenation seems adequate at this time at 94% on room air. She does have exertional dyspnea. We will check her pulmonary function to assess severity of COPD if indeed present. Given the findings on CT scan it would be appropriate to anticoagulate the patient at present, do ultrasound of both lower extremities and if need be repeat the CTA later on to assure the absence of pulmonary emboli. Meanwhile the patient could be maintained on nebulized albuterol on as needed basis for shortness of breath which has already been initiated. I do thank you for asking me to partake in Mrs. Sanchez's care. Nena Barrett MD WWW/HARPREET /6:05 PM /6:30 PM
[2017-11-13] MEDS: GABAPENTIN 300 MG CAP PO SCH (21:47)
[2017-11-13] MEDS: FLUCONAZOLE 200 MG TAB PO SCH (21:47)
[2017-11-14] VITALS (9 sets, daily range): BP systolic 119–164; BP diastolic 69–96; PULSE 80–97; RESP 17–20; TEMP 97.7–98.3; O2SAT 94–99
[2017-11-14] MEDS: metroNIDAZOLE 500 MG TAB PO SCH ×3 (05:14→21:15)
[2017-11-14] MEDS: NYSTATIN 100,000 UNIT/GM CREAM 15 GM TOPICAL SCH ×4 (05:15→22:45)
[2017-11-14] MEDS: ACETAMINOPHEN/HYDROcodone 325 MG/10 MG TAB PO PRN (07:23)
[2017-11-14] MEDS: INSULIN ASPART SUPPLEMENTAL SCALE SQ SCH ×4 (08:18→21:17)
[2017-11-14] MEDS: SODIUM CHLORIDE 0.9% FLUSH 10 ML FLUSH IV FLUSH SCH ×2 (08:18→21:00)
[2017-11-14] MEDS: metFORMIN HCL 500 MG TAB PO SCH ×2 (08:19→16:52)
[2017-11-14] MEDS: POTASSIUM CHLORIDE 8 MEQ CAP PO SCH (08:19)
[2017-11-14] MEDS: LOSARTAN 50 MG TAB PO SCH (08:19)
[2017-11-14] MEDS: FUROSEMIDE 40 MG TAB PO SCH (08:19)
[2017-11-14] MEDS: INSULIN DETEMIR 100 UNITS/ML VIAL SQ SCH ×2 (08:20→21:16)
--- NOTE | 2017-11-14 09:46 | HHI.PR ---
Subjective Remarks in no acute distress. afebrile. sob is better. denies pain or any new complaints. Objective Vitals Vital Signs Date Time Temp Pulse Resp B/P (MAP) Pulse Ox O2 Delivery O2 Flow Rate FiO2 11/14/17 08:32 18 11/14/17 05:46 Room Air 11/14/17 04:00 98.2 89 19 162/85 (110) 96 11/14/17 03:48 80 11/14/17 01:00 Room Air 11/14/17 00:00 86 11/14/17 00:00 97.7 93 18 146/69 (94) 94 11/13/17 20:00 98.0 97 20 146/81 (102) 94 11/13/17 20:00 Room Air 11/13/17 19:42 95 11/13/17 18:03 94 21 11/13/17 16:00 98.1 92 20 135/67 (89) 92 11/13/17 12:00 99.1 97 20 163/76 (105) 96 I/O 11/13/17 11/13/17 11/13/17 11/14/17 11/14/17 11/14/17 07:00 15:00 23:00 07:00 15:00 23:00 Intake Total 530 ml 840 ml Output Total 5 ml Balance 530 ml 840 ml -5 ml Intake Oral 480 ml 840 ml IV Total 50 ml Drainage Total 5 ml # Voids 5 7 2 # Bowel Movements 2 1 0 Result Diagram: 11/12/17 1139 11/12/17 1139 Imaging Last Impressions Abscess Drainage CT 11/13/17 1403 Signed Impressions: Service Date/Time: Monday, November 13, 2017 14:55 - CONCLUSION: 1. CT- guided placement of 10 [place] drainage catheter in right breast abscess. 50 cc of odorous purulent fluid was removed immediately following catheter placement. Bill Pierre MD Lower Extremity Ultrasound 11/13/17 0000 Signed Impressions: Service Date/Time: Monday, November 13, 2017 13:27 - CONCLUSION: 1. No sonographic evidence for lower extremity DVT. 2. The Suspect findings on chest CTA exam are artifactual, due to motion artifact and suboptimal contrast bolus timing although I cannot be definitive. Bill Pierre MD CT Angiography 11/13/17 0000 Signed Impressions: Service Date/Time: Monday, November 13, 2017 10:45 - CONCLUSION: 1. Suboptimal pulmonary artery examination with inadequate opacification of subsegmental pulmonary artery branches. There is one subsegmental right lower lobe pulmonary artery branch with focal filling defect out of proportion to the degree of under opacification in the remaining subsegmental branches. This may be due to volume averaging artifact although a small pulmonary artery embolism in this branch cannot be excluded. Consider ultrasound examination of the lower extremities to evaluate for lower extremity DVT. If patient has DVT, would consider this a small pulmonary artery embolism. In the absence of DVT, this finding is nonspecific and of uncertain significance. 2. Diffuse inflammatory stranding with partially imaged collection of air and likely fluid in the right breast. Patient was recently evaluated for abscess on 11/09/2017. Query surgical intervention/debridement? If no intervention has been performed, findings are concerning for possible interval development of a breast abscess. Consider repeat ultrasound examination for further evaluation. 3. Single prominent subcarinal lymph node, nonspecific and likely reactive in etiology. Bill Pierre MD Chest X-Ray 11/12/17 0000 Signed Impressions: Service Date/Time: Sunday, November 12, 2017 11:08 - CONCLUSION: No acute disease. Ifeanyi Wilder MD Breast Ultrasound 11/09/17 0000 Signed Impressions: Service Date/Time: Thursday, November 09, 2017 16:56 - CONCLUSION: No liquefied abscess observed. Isolated ultrasound evaluation of the breast without mammographic correlate is very insensitive for detecting malignancy. Jelani Castelan Jr., MD Objective Remarks GENERAL: This is a well-nourished, well-developed patient, in no apparent distress. CARDIOVASCULAR: Regular rate and regular rhythm without murmurs, gallops, or rubs. RESPIRATORY: Clear to auscultation. Breath sounds equal bilaterally. No wheezes , rales, or rhonchi. breast; drain in place. GASTROINTESTINAL: Abdomen soft, non-tender, nondistended. Normal, active bowel sounds MUSCULOSKELETAL: Extremities without clubbing, cyanosis, or edema. NEURO: Alert & Oriented x4 to person, place, time, situation. Moves all ext x4 Procedures right breast abscess drainage. Medications and IVs Inpatient Medications Acetaminophen (Tylenol) 650 mg Q4H PRN PO FEVER Last administered on 11/12/17at 21:16; Start 11/07/17 at 13:15 Acetaminophen/ Hydrocodone Bitart ([place] 5-325 Mg) 1 tab Q4H PRN PO PAIN 1-5 Last administered on 11/10/17at 17:02; Start 11/07/17 at 00:45 Acetaminophen/ Hydrocodone Bitart ([place] 10-325 Mg) 1 tab Q4H PRN PO PAIN 6-10 Last administered on 11/14/17at 07:23; Start 11/07/17 at 00:45 Albuterol/ Ipratropium (Duoneb Neb) 1 ampule Q6HR NEB PRN NEB SHORTNESS OF BREATH; Start 11/12/17 at 11:15 Calcium Carbonate (Tums Chew) 500 mg Q2H PRN CHEW HEARTBURN Last administered on 11/13/17at 16:14; Start 11/10/17 at 22:00 Cefazolin Sodium/ Dextrose 50 ml @ 100 mls/hr Q8H IV Last administered on 11/13at 12:00; Start 11/08/17 at 20:00; Stop 11/13/17 at 17:16; Status DC Ceftriaxone Sodium 2000 mg/ Sodium Chloride 100 ml @ 200 mls/hr Q24H IV Last administered on 11/13/17at 18:11; Start 11/13/17 at 18:00 Dextrose (D50w (Vial) Inj) 50 ml UNSCH PRN IV PUSH HYPOGLYCEMIA-SEE COMMENTS; Start 11/07/17 at 12:30 Diphenhydramine HCl (Benadryl Inj) 50 mg ONCE ONCE IV PUSH Last administered on 11/06/17at 22:42; Start 11/06/17 at 22:00; Stop 11/06/17 at 22:04; Status DC Fluconazole (Diflucan) 200 mg Q24H PO Last administered on 11/13/17at 21:47; Start 11/08/17 at 20:00 Furosemide (Lasix) 40 mg DAILY PO Last administered on 11/14/17at 08:19; Start 11/07/17 at 09:00 Gabapentin (Neurontin) 600 mg HS PO Last administered on 11/13/17at 21:47; Start 11/07/17 at 21:00 Glucagon (Glucagon Inj) 1 mg UNSCH PRN OTHER HYPOGLYCEMIA-SEE COMMENTS; Start 11/07/17 at 12:30 Ibuprofen (Motrin) 600 mg ONCE ONCE PO ; Start 11/06/17 at 22:00; Stop at 22:04; Status DC Insulin Aspart (NovoLOG SUPPLEMENTAL SCALE) 1 ACHS SLIDING SCALE SQ Last administered on 11/14/17at 08:18; Start 11/07/17 at 17:00 Insulin Detemir (Levemir Inj) 12 units Q12HR SQ Last administered on 11/14/17at 08:20; Start 11/11/17 at 21:00 Insulin Human Isoph/Insulin Regular (NovoLIN 70/30 INJ) 50 units DAILY SQ Last administered on 11/07/17at 08:20; Start 11/07/17 at 09:00; Status Future Hold Insulin Human Regular (NovoLIN R INJ) 3 units STAT ONCE IV PUSH Last administered on 11/06/17at 23:14; Start 11/06/17 at 22:45; Stop 11/06/17 at 22:46 ; Status DC Levofloxacin/ Dextrose 150 ml @ 100 mls/hr Q24H IV Last administered on at 08:21; Start 11/07/17 at 09:00; Stop 11/08/17 at 18:08; Status DC Losartan Potassium (Cozaar) 50 mg DAILY PO Last administered on 11/14/17at 08:19 ; Start 11/07/17 at 09:00 Magnesium Hydroxide (Milk Of Magnesia Liq) 30 ml DAILY PRN PO CONSTIPATION Last administered on 11/10/17at 21:47; Start 11/09/17 at 16:45 Metformin HCl (Glucophage) 1,000 mg BIDPC PO Last administered on 11/14/17at 08: 19; Start 11/07/17 at 09:00 Metoclopramide HCl (Reglan Inj) 10 mg ONCE ONCE IV PUSH Last administered on at 22:42; Start 11/06/17 at 22:00; Stop 11/06/17 at 22:04; Status DC Metronidazole (Flagyl) 500 mg Q8HR PO Last administered on 11/14/17at 05:14; Start 11/13/17 at 17:15 Naloxone HCl (Narcan Inj) 0.4 mg UNSCH PRN IV PUSH SEE LABEL COMMENTS; Start at 22:45 Nifedipine (Procardia Xl) 30 mg ONCE ONCE PO Last administered on 11/12/17at 14 :46; Start 11/12/17 at 11:15; Stop 11/12/17 at 11:39; Status DC Nystatin (Mycostatin Cream) 1 applic Q6HR TOPICAL Last administered on at 12:29; Start 11/09/17 at 00:00 Patient Own Medication PT OWN MED: Tabl... DAILY PO ; Start 11/07/17 at 09:00; Status Future Hold Pharmacy Profile Note 0 ml @ 0 mls/hr UNSCH OTHER ; Start 11/07/17 at 17:30; Stop 11/08/17 at 18:08; Status DC Piperacillin Sod/ Tazobactam Sod 100 ml @ 200 mls/hr ONCE ONCE IV Last administered on 11/06/17at 22:42; Start 11/06/17 at 22:00; Stop 11/06/17 at 22:29 ; Status DC Potassium Chloride (KCl) 30 meq ONCE ONCE PO Last administered on 11/12/17at 18 :51; Start 11/12/17 at 18:00; Stop 11/12/17 at 18:01; Status DC Sodium Chloride 1,000 ml @ 125 mls/hr Q8H IV Last administered on 11/12/17at 02 :50; Start 11/07/17 at 04:15; Stop 11/12/17 at 10:48; Status DC Sodium Chloride (NS Flush) 2 ml BID IV FLUSH Last administered on 11/14/17at 08: 18; Start 11/07/17 at 09:00 Vancomycin HCl 1500 mg/Sodium Chloride 515 ml @ 257.5 mls/ hr Q12HR ONCE IV ; Start 11/08/17 at 09:00; Stop 11/08/17 at 10:59; Status DC Vancomycin HCl 2000 mg/Sodium Chloride 520 ml @ 250 mls/hr Q12H IV Last administered on 11/08/17at 15:12; Start 11/08/17 at 15:00; Stop 11/08/17 at 18:08 ; Status DC Vancomycin HCl 2500 mg/Sodium Chloride 525 ml @ 250 mls/hr NOW ONCE IV Last administered on 11/07/17at 19:00; Start 11/07/17 at 19:00; Stop 11/07/17 at 21:05 ; Status DC Vancomycin/Sodium Chloride 200 ml @ 200 mls/hr Q12H IV ; Start 11/07/17 at 17: 30; Stop 11/07/17 at 18:38; Status DC A/P Problem List: (1) Sepsis ICD Code: A41.9 - Sepsis, unspecified organism (2) Cellulitis of right breast ICD Code: N61.0 - Mastitis without abscess (3) Hypertension ICD Code: I10 - Essential (primary) hypertension (4) Diabetes ICD Code: E11.9 - Type 2 diabetes mellitus without complications (5) Leukocytosis ICD Code: D72.829 - Elevated white blood cell count, unspecified Assessment and Plan Sepsis due to Right breast cellulitis - improving. - s/p abscess drainage by IR. - ID f/u appreciated and started on IV Rocephin. -will follow the cultures. -mammogram as outpatient. sob/ hypoxemia CXR with no acute disease. wak test could not be performed yesterday since the patient became tachycardic and diaphoretic. CTA with questionable filling defect- however in light of negative lower extremities venous doppler, might be in fact due to motion artifact. will continue with oxygen and neb treatments as needed. of note patient has a long history of smoking; will need PFT as outpatient and this was d/w the patient. pulmonary consult appreciated. will repeat walk test before discharge. Diabetes- -hold insulin 70/30. -on levemir; will increase to 14 units subq bid- continue accu-check with SSI. -continue to monitor and adjust the regimen as needed. Hypertension, chronic -Resumed home medications and monitor vitals The patient currently on losartan. CKD, creatinine 1.2 at baseline -Resumed home medications -Avoid nephrotoxins Hypokalemia;replaced. DVT prophylaxis; SCD's- pending surgery recommendations . Discharge Planning s/p abscess drainage with drain in place. on IV antibiotic. not ready for discharge yet. Problem Qualifiers (1) Sepsis: Qualified Codes: A41.9 - Sepsis, unspecified organism (2) Diabetes: Qualified Codes: E11.65 - Type 2 diabetes mellitus with hyperglycemia; Z79.4 - [facility]FP (current) use of insulin (3) Leukocytosis: Qualified Codes: D72.829 - Elevated white blood cell count, unspecified Benton Ruiz MD Nov 14, 2017 09:46
--- NOTE | 2017-11-14 11:17 | HHI.FF ---
Face to Face Verification Diagnosis: (1) Cellulitis of right breast Home Health Nursing Order: Medical education Signs/symptoms of disease process Medication education-adverse effect Wound care and dressing changes Nursing assessment with vital signs I have seen patient Cindy Sanchez on 11/14/17. My clinical findings support the need for the requested home health care services because: Ltd mobility - disease progression I certify that my clinical findings support that this patient is homebound because: Unsteady gait/balance Benton Ruiz MD Nov 14, 2017 11:17
--- NOTE | 2017-11-14 12:04 | HHI.PR ---
Subjective Subjective Notes feels better with IR drain yesterday Objective Vitals/I&O Vital Signs Date Time Temp Pulse Resp B/P (MAP) Pulse Ox O2 Delivery O2 Flow Rate FiO2 11/14/17 11:23 97 Room Air 11/14/17 08:32 18 11/14/17 08:00 98.3 92 123/90 (101) 11/13/17 18:03 21 Labs Laboratory Tests Test 11/13/17 21:05 C-Reactive Protein 23.00 Date/Time Source Procedure Growth Status 11/06/17 22:10 Blood Peripheral Aerobic Blood Culture - Final NO GROWTH IN 5 DAYS Complete 11/06/17 22:10 Blood Peripheral Anaerobic Blood Culture - Final NO GROWTH IN 5 DAYS Complete 11/13/17 15:00 Fluid Other Fungal Smear - Final NO FUNGAL ELEMENTS SEEN. Resulted 11/13/17 15:00 Fluid Other Fungal Culture Pending Resulted 11/06/17 20:46 Nasal Washing Influenza Types A,B Antigen (SRINI) - Final NEGATIVE FOR FLU A AND B ANTIGEN.... Complete 11/13/17 15:00 Abscess Breast Acid Fast Stain Pending Received 11/13/17 15:00 Abscess Breast Mycobacterial Culture Pending Received Narrative Exam right breast exam with floor nurse present shows cellulitis/induration, IR drain with pus A/P Assessment and Plan 52yo female with deep right breast abscess s/p ID with IR, stable. I recommended surgery for more aggressive ID vs. continue current drain and ABX , she would like to continue current drain will order a follow up US tomorrow to evaluate abscess for improvement or resolution or new abscess formation Mayo Barrera MD Nov 14, 2017 12:04
[2017-11-14] MEDS: CALCIUM CARBONATE 500 MG CHEWABLE TAB CHEW PRN (12:08)
[2017-11-14] MEDS: ACETAMINOPHEN/HYDROcodone 325 MG/5 MG TAB PO PRN ×2 (13:58→21:15)
[2017-11-14] MEDS: cefTRIAXone INJ 2,000 MG in SODIUM CHLORIDE 0.9% INJ 100 ML IV SCH (16:52)
[2017-11-14] MEDS: FLUCONAZOLE 200 MG TAB PO SCH (21:15)
[2017-11-14] MEDS: GABAPENTIN 300 MG CAP PO SCH (21:15)
[2017-11-15] VITALS (10 sets, daily range): BP systolic 137–156; BP diastolic 68–80; PULSE 76–91; RESP 18–19; TEMP 97.6–98.9; O2SAT 94–100
[2017-11-15] MEDS: NYSTATIN 100,000 UNIT/GM CREAM 15 GM TOPICAL SCH ×4 (06:00→23:56)
[2017-11-15] MEDS: metroNIDAZOLE 500 MG TAB PO SCH ×3 (06:33→20:55)
[2017-11-15] MEDS: ACETAMINOPHEN/HYDROcodone 325 MG/5 MG TAB PO PRN ×2 (06:34→20:55)
[2017-11-15] MEDS: INSULIN ASPART SUPPLEMENTAL SCALE SQ SCH ×4 (08:00→21:04)
[2017-11-15 08:02] LABS: BICARBONATE 31.6 MEQ/L (21.0-32.0); CALCIUM 8.6 MG/DL (8.5-10.1); CREATININE 0.62 MG/DL (0.50-1.00)
[2017-11-15] MEDS: SODIUM CHLORIDE 0.9% FLUSH 10 ML FLUSH IV FLUSH SCH ×2 (08:08→20:56)
[2017-11-15] MEDS: POTASSIUM CHLORIDE 8 MEQ CAP PO SCH (08:08)
[2017-11-15] MEDS: LOSARTAN 50 MG TAB PO SCH (08:08)
[2017-11-15] MEDS: FUROSEMIDE 40 MG TAB PO SCH (08:09)
[2017-11-15] MEDS: INSULIN DETEMIR 100 UNITS/ML VIAL SQ SCH ×3 (08:13→20:56)
--- NOTE | 2017-11-15 09:17 | HHI.PR ---
Subjective Remarks in no acute distress. afebrile. pain is controlled. no sob. off oxygen now. Objective Vitals Vital Signs Date Time Temp Pulse Resp B/P (MAP) Pulse Ox O2 Delivery O2 Flow Rate FiO2 11/15/17 08:07 18 11/15/17 08:06 98.5 80 18 156/76 (102) 98 11/15/17 06:00 97.9 85 19 140/72 (94) 94 11/15/17 04:00 84 11/15/17 04:00 Room Air 11/15/17 00:45 98.3 85 18 137/68 (91) 96 11/15/17 00:20 99 21 11/15/17 00:15 82 11/14/17 23:45 Room Air 11/14/17 21:15 97.8 97 17 150/86 (107) 99 11/14/17 20:00 93 11/14/17 20:00 Room Air 11/14/17 18:35 91 11/14/17 16:00 98.2 95 20 119/73 (88) 97 11/14/17 12:00 97 11/14/17 12:00 98.0 90 20 164/96 (118) 96 11/14/17 11:23 97 Room Air I/O 11/14/17 11/14/17 11/14/17 11/15/17 11/15/17 11/15/17 07:00 15:00 23:00 07:00 15:00 23:00 Intake Total 1740 ml 1000 ml Output Total 5 ml 100 ml 75 ml Balance -5 ml 1640 ml 925 ml Intake Oral 1640 ml 1000 ml IV Total 100 ml Drainage Total 5 ml 100 ml 75 ml # Voids 2 4 2 # Bowel Movements 0 0 0 Result Diagram: 11/12/17 1139 11/15/17 0703 Imaging Last Impressions Abscess Drainage CT 11/13/17 1403 Signed Impressions: Service Date/Time: Monday, November 13, 2017 14:55 - CONCLUSION: 1. CT- guided placement of 10 Czech drainage catheter in right breast abscess. 50 cc of odorous purulent fluid was removed immediately following catheter placement. Bill Pierre MD Lower Extremity Ultrasound 11/13/17 0000 Signed Impressions: Service Date/Time: Monday, November 13, 2017 13:27 - CONCLUSION: 1. No sonographic evidence for lower extremity DVT. 2. The Suspect findings on chest CTA exam are artifactual, due to motion artifact and suboptimal contrast bolus timing although I cannot be definitive. Bill Pierre MD CT Angiography 11/13/17 0000 Signed Impressions: Service Date/Time: Monday, November 13, 2017 10:45 - CONCLUSION: 1. Suboptimal pulmonary artery examination with inadequate opacification of subsegmental pulmonary artery branches. There is one subsegmental right lower lobe pulmonary artery branch with focal filling defect out of proportion to the degree of under opacification in the remaining subsegmental branches. This may be due to volume averaging artifact although a small pulmonary artery embolism in this branch cannot be excluded. Consider ultrasound examination of the lower extremities to evaluate for lower extremity DVT. If patient has DVT, would consider this a small pulmonary artery embolism. In the absence of DVT, this finding is nonspecific and of uncertain significance. 2. Diffuse inflammatory stranding with partially imaged collection of air and likely fluid in the right breast. Patient was recently evaluated for abscess on 11/09/2017. Query surgical intervention/debridement? If no intervention has been performed, findings are concerning for possible interval development of a breast abscess. Consider repeat ultrasound examination for further evaluation. 3. Single prominent subcarinal lymph node, nonspecific and likely reactive in etiology. Bill Pierre MD Chest X-Ray 11/12/17 0000 Signed Impressions: Service Date/Time: Sunday, November 12, 2017 11:08 - CONCLUSION: No acute disease. Ifeanyi Wilder MD Breast Ultrasound 11/09/17 0000 Signed Impressions: Service Date/Time: Thursday, November 09, 2017 16:56 - CONCLUSION: No liquefied abscess observed. Isolated ultrasound evaluation of the breast without mammographic correlate is very insensitive for detecting malignancy. Jelani Castelan Jr., MD Objective Remarks GENERAL: This is a well-nourished, well-developed patient, in no apparent distress. CARDIOVASCULAR: Regular rate and regular rhythm without murmurs, gallops, or rubs. RESPIRATORY: Clear to auscultation. Breath sounds equal bilaterally. No wheezes , rales, or rhonchi. breast; drain in place. GASTROINTESTINAL: Abdomen soft, non-tender, nondistended. Normal, active bowel sounds MUSCULOSKELETAL: Extremities without clubbing, cyanosis, or edema. NEURO: Alert & Oriented x4 to person, place, time, situation. Moves all ext x4 Procedures right breast abscess drainage. Medications and IVs Inpatient Medications Acetaminophen (Tylenol) 650 mg Q4H PRN PO FEVER Last administered on 11/12/17at 21:16; Start 11/07/17 at 13:15 Acetaminophen/ Hydrocodone Bitart ([place] 5-325 Mg) 1 tab Q4H PRN PO PAIN 1-5 Last administered on 11/15/17at 06:34; Start 11/07/17 at 00:45 Acetaminophen/ Hydrocodone Bitart ([place] 10-325 Mg) 1 tab Q4H PRN PO PAIN 6-10 Last administered on 11/14/17at 07:23; Start 11/07/17 at 00:45 Albuterol/ Ipratropium (Duoneb Neb) 1 ampule Q6HR NEB PRN NEB SHORTNESS OF BREATH; Start 11/12/17 at 11:15 Calcium Carbonate (Tums Chew) 500 mg Q2H PRN CHEW HEARTBURN Last administered on 11/14/17at 12:08; Start 11/10/17 at 22:00 Cefazolin Sodium/ Dextrose 50 ml @ 100 mls/hr Q8H IV Last administered on 11/13at 12:00; Start 11/08/17 at 20:00; Stop 11/13/17 at 17:16; Status DC Ceftriaxone Sodium 2000 mg/ Sodium Chloride 100 ml @ 200 mls/hr Q24H IV Last administered on 11/14/17at 16:52; Start 11/13/17 at 18:00 Dextrose (D50w (Vial) Inj) 50 ml UNSCH PRN IV PUSH HYPOGLYCEMIA-SEE COMMENTS; Start 11/07/17 at 12:30 Diphenhydramine HCl (Benadryl Inj) 50 mg ONCE ONCE IV PUSH Last administered on 11/06/17at 22:42; Start 11/06/17 at 22:00; Stop 11/06/17 at 22:04; Status DC Fluconazole (Diflucan) 200 mg Q24H PO Last administered on 11/14/17at 21:15; Start 11/08/17 at 20:00 Furosemide (Lasix) 40 mg DAILY PO Last administered on 11/15/17at 08:09; Start 11/07/17 at 09:00 Gabapentin (Neurontin) 600 mg HS PO Last administered on 11/14/17at 21:15; Start 11/07/17 at 21:00 Glucagon (Glucagon Inj) 1 mg UNSCH PRN OTHER HYPOGLYCEMIA-SEE COMMENTS; Start 11/07/17 at 12:30 Ibuprofen (Motrin) 600 mg ONCE ONCE PO ; Start 11/06/17 at 22:00; Stop at 22:04; Status DC Insulin Aspart (NovoLOG SUPPLEMENTAL SCALE) 1 ACHS SLIDING SCALE SQ Last administered on 11/14/17at 21:17; Start 11/07/17 at 17:00 Insulin Detemir (Levemir Inj) 14 units Q12HR SQ Last administered on 11/14/17at 21:16; Start 11/14/17 at 21:00 Insulin Human Isoph/Insulin Regular (NovoLIN 70/30 INJ) 50 units DAILY SQ Last administered on 11/07/17at 08:20; Start 11/07/17 at 09:00; Status Future Hold Insulin Human Regular (NovoLIN R INJ) 3 units STAT ONCE IV PUSH Last administered on 11/06/17at 23:14; Start 11/06/17 at 22:45; Stop 11/06/17 at 22:46 ; Status DC Levofloxacin/ Dextrose 150 ml @ 100 mls/hr Q24H IV Last administered on at 08:21; Start 11/07/17 at 09:00; Stop 11/08/17 at 18:08; Status DC Losartan Potassium (Cozaar) 50 mg DAILY PO Last administered on 11/15/17at 08:08 ; Start 11/07/17 at 09:00 Magnesium Hydroxide (Milk Of Magnesia Liq) 30 ml DAILY PRN PO CONSTIPATION Last administered on 11/10/17at 21:47; Start 11/09/17 at 16:45 Metformin HCl (Glucophage) 1,000 mg BIDPC PO Last administered on 11/14/17at 16: 52; Start 11/07/17 at 09:00; Status Future Hold Metoclopramide HCl (Reglan Inj) 10 mg ONCE ONCE IV PUSH Last administered on at 22:42; Start 11/06/17 at 22:00; Stop 11/06/17 at 22:04; Status DC Metronidazole (Flagyl) 500 mg Q8HR PO Last administered on 11/15/17at 06:33; Start 11/13/17 at 17:15 Naloxone HCl (Narcan Inj) 0.4 mg UNSCH PRN IV PUSH SEE LABEL COMMENTS; Start at 22:45 Nifedipine (Procardia Xl) 30 mg ONCE ONCE PO Last administered on 11/12/17at 14 :46; Start 11/12/17 at 11:15; Stop 11/12/17 at 11:39; Status DC Nystatin (Mycostatin Cream) 1 applic Q6HR TOPICAL Last administered on at 06:00; Start 11/09/17 at 00:00 Patient Own Medication PT OWN MED: Tabl... DAILY PO ; Start 11/07/17 at 09:00; Status Future Hold Pharmacy Profile Note 0 ml @ 0 mls/hr UNSCH OTHER ; Start 11/07/17 at 17:30; Stop 11/08/17 at 18:08; Status DC Piperacillin Sod/ Tazobactam Sod 100 ml @ 200 mls/hr ONCE ONCE IV Last administered on 11/06/17at 22:42; Start 11/06/17 at 22:00; Stop 11/06/17 at 22:29 ; Status DC Potassium Chloride (KCl) 30 meq ONCE ONCE PO Last administered on 11/12/17at 18 :51; Start 11/12/17 at 18:00; Stop 11/12/17 at 18:01; Status DC Sodium Chloride 1,000 ml @ 125 mls/hr Q8H IV Last administered on 11/12/17at 02 :50; Start 11/07/17 at 04:15; Stop 11/12/17 at 10:48; Status DC Sodium Chloride (NS Flush) 2 ml BID IV FLUSH Last administered on 11/15/17at 08: 08; Start 11/07/17 at 09:00 Vancomycin HCl 1500 mg/Sodium Chloride 515 ml @ 257.5 mls/ hr Q12HR ONCE IV ; Start 11/08/17 at 09:00; Stop 11/08/17 at 10:59; Status DC Vancomycin HCl 2000 mg/Sodium Chloride 520 ml @ 250 mls/hr Q12H IV Last administered on 11/08/17at 15:12; Start 11/08/17 at 15:00; Stop 11/08/17 at 18:08 ; Status DC Vancomycin HCl 2500 mg/Sodium Chloride 525 ml @ 250 mls/hr NOW ONCE IV Last administered on 11/07/17at 19:00; Start 11/07/17 at 19:00; Stop 11/07/17 at 21:05 ; Status DC Vancomycin/Sodium Chloride 200 ml @ 200 mls/hr Q12H IV ; Start 11/07/17 at 17: 30; Stop 11/07/17 at 18:38; Status DC A/P Problem List: (1) Sepsis ICD Code: A41.9 - Sepsis, unspecified organism (2) Cellulitis of right breast ICD Code: N61.0 - Mastitis without abscess (3) Hypertension ICD Code: I10 - Essential (primary) hypertension (4) Diabetes ICD Code: E11.9 - Type 2 diabetes mellitus without complications (5) Leukocytosis ICD Code: D72.829 - Elevated white blood cell count, unspecified Assessment and Plan Sepsis due to Right breast cellulitis - improving. - s/p abscess drainage by IR. - ID f/u appreciated and started on IV Rocephin. -will follow the cultures. -repeated sonogram of the right breast pending. -awaiting surgery f/u and recommendations. -mammogram as outpatient. sob/ hypoxemia CXR with no acute disease. walk test could not be performed yesterday since the patient became tachycardic and diaphoretic. CTA with questionable filling defect- however in light of negative lower extremities venous doppler, might be in fact due to motion artifact. will continue with oxygen and neb treatments as needed. of note patient has a long history of smoking; will need PFT as outpatient and this was d/w the patient. pulmonary consult appreciated. will repeat walk test before discharge. Diabetes- -hold insulin 70/30. -continue levemir- continue accu-check with SSI. -continue to monitor and adjust the regimen as needed. Hypertension, chronic -Resumed home medications and monitor vitals The patient currently on losartan. CKD, creatinine 1.2 at baseline -Resumed home medications -Avoid nephrotoxins Hypokalemia;replaced. DVT prophylaxis; SCD's- pending surgery recommendations . Discharge Planning s/p abscess drainage with drain in place. on IV antibiotic. not ready for discharge yet. Problem Qualifiers (1) Sepsis: Qualified Codes: A41.9 - Sepsis, unspecified organism (2) Diabetes: Qualified Codes: E11.65 - Type 2 diabetes mellitus with hyperglycemia; Z79.4 - termination clerk (current) use of insulin (3) Leukocytosis: Qualified Codes: D72.829 - Elevated white blood cell count, unspecified Benton Ruiz MD Nov 15, 2017 09:17
--- NOTE | 2017-11-15 09:24 | RADRPT ---
EXAM DATE/TIME: 11/15/2017 08:15 [facility] COMPARISON: US BREAST RIGHT, November 09, 2017, 16:56. INDICATIONS : Right breast abscess. MEDICAL HISTORY : Hypercholesterolemia. Hypertension. Right breast abscess. Diabetes. Tobacco use. SURGICAL HISTORY : section. Right breast abscess drainage. ENCOUNTER: Subsequent ACUITY: 4-6 days PAIN SCORE: 0/10 LOCATION: Right breast. FINDINGS: Ultrasound of the right breast was performed to evaluate any residual abscess. No residual abscess ob served. CONCLUSION: No appreciable abscess. Jelani Castelan Jr., MD on November 15, 2017 at 9:21 Board Certified Radiologist. This report was verified electronically.
--- NOTE | 2017-11-15 14:15 | HHI.PR ---
Subjective Subjective Notes US with no abscess Objective Vitals/I&O Vital Signs Date Time Temp Pulse Resp B/P (MAP) Pulse Ox O2 Delivery O2 Flow Rate FiO2 11/15/17 12:30 97.6 85 18 138/69 (92) 96 11/15/17 11:41 21 11/15/17 10:29 Room Air Labs Laboratory Tests Test 11/15/17 07:03 Blood Urea Nitrogen 6 Creatinine 0.62 Random Glucose 176 Calcium Level 8.6 Sodium Level 141 Potassium Level 3.6 Chloride Level 103 Carbon Dioxide Level 31.6 Anion Gap 6 Estimat Glomerular Filtration Rate 122 Date/Time Source Procedure Growth Status 11/06/17 22:10 Blood Peripheral Aerobic Blood Culture - Final NO GROWTH IN 5 DAYS Complete 11/06/17 22:10 Blood Peripheral Anaerobic Blood Culture - Final NO GROWTH IN 5 DAYS Complete 11/13/17 15:00 Fluid Other Fungal Smear - Final NO FUNGAL ELEMENTS SEEN. Resulted 11/13/17 15:00 Fluid Other Fungal Culture Pending Resulted 11/06/17 20:46 Nasal Washing Influenza Types A,B Antigen (SRINI) - Final NEGATIVE FOR FLU A AND B ANTIGEN.... Complete 11/13/17 15:00 Abscess Breast Acid Fast Stain - Final NO ACID FAST BACILLI SEEN Resulted 11/13/17 15:00 Abscess Breast Mycobacterial Culture Pending Resulted Narrative Exam right breast exam with floor nurse present shows cellulitis/induration, IR drain with pus A/P Assessment and Plan 52yo female with deep right breast abscess s/p ID with IR, stable. US shows no abscess ok to DC home with drain, fu with my office on Sunday Mayo Barrera MD Nov 15, 2017 14:15
--- NOTE | 2017-11-15 14:59 | HHI.PR ---
Addendum to Inpatient Note Addendum Reason: Additional Documentation Additional Information Please call me with final culture report for oral recs. Per micro anaerobe workup ongoing. PO antibiotics anticipated on discharge. d/w Connie Pires MD Nov 15, 2017 14:59
--- NOTE | 2017-11-15 16:20 | HHI.IDPN ---
Subjective Subjective Remarks Chart reviewed Ms. Sanchez is a 52-year-old female with past medical history significant for diabetes, diabetic neuropathy, hypertension. There is background patient presents to the emergency department with complaints of painful lump under her right breast as well as fever and chills. Patient reports she has not had a mammogram in over 2 years now. She denies any discharge from the nipple she denies any change in the shape of her nipple. She reports wearing underwire bras washing the bar every other use. She thinks she may have abraded her breast skin during cleaning. Patient reports she noticed a lump under her right breast approximately a week prior to admission. She then noticed that this erythema started spreading to the outer quadrants of her right breast. She reports the pain as throbbing in nature 8 out of 10 worse with movement. She reports fever and chills associated with nausea. The only other time she has had an infection was in the right foot with similar symptoms when she was admitted. Patient is a known diabetic she is currently on insulin at home and her blood sugars are not controlled. Overnight events reviewed. No fevers No rash No diarrhea Drain in place. Antibiotics Ceftriaxone IV Flagyl Diflucan oral Lines Line sites with no e.o infection. Past Medical History reviewed. Allergies: Coded Allergies: No Known Allergies (Verified Allergy, Unknown, 11/06/17) Objective . Vital Signs Date Time Temp Pulse Resp B/P (MAP) Pulse Ox O2 Delivery O2 Flow Rate FiO2 11/15/17 12:30 97.6 85 18 138/69 (92) 96 11/15/17 11:41 21 11/15/17 10:29 98 Room Air 11/15/17 08:07 18 11/15/17 08:06 98.5 80 18 156/76 (102) 98 11/15/17 06:00 97.9 85 19 140/72 (94) 94 11/15/17 04:00 84 11/15/17 04:00 Room Air 11/15/17 00:45 98.3 85 18 137/68 (91) 96 11/15/17 00:20 99 21 11/15/17 00:15 82 11/14/17 23:45 Room Air 11/14/17 21:15 97.8 97 17 150/86 (107) 99 11/14/17 20:00 93 11/14/17 20:00 Room Air 11/14/17 18:35 91 . Laboratory Tests Test 11/13/17 21:05 11/15/17 07:03 C-Reactive Protein 23.00 MG/DL Blood Urea Nitrogen 6 MG/DL Creatinine 0.62 MG/DL Random Glucose 176 MG/DL Calcium Level 8.6 MG/DL Sodium Level 141 MEQ/L Potassium Level 3.6 MEQ/L Chloride Level 103 MEQ/L Carbon Dioxide Level 31.6 MEQ/L Anion Gap 6 MEQ/L Estimat Glomerular Filtration Rate 122 ML/MIN Microbiology Date/Time Source Procedure Growth Status 11/13/17 15:00 Fluid Other Fungal Smear - Final NO FUNGAL ELEMENTS SEEN. Resulted 11/13/17 15:00 Fluid Other Fungal Culture Pending Resulted 11/13/17 15:00 Abscess Breast Acid Fast Stain - Final NO ACID FAST BACILLI SEEN Resulted 11/13/17 15:00 Abscess Breast Mycobacterial Culture Pending Resulted 11/13/17 15:00 Abscess Breast Gram Stain - Final Resulted 11/13/17 15:00 Abscess Breast Wound Culture - Preliminary Resulted Imaging Last Impressions Breast Ultrasound 11/09/17 0000 Signed Impressions: Service Date/Time: Thursday, November 09, 2017 16:56 - CONCLUSION: No liquefied abscess observed. Isolated ultrasound evaluation of the breast without mammographic correlate is very insensitive for detecting malignancy. Jelani Castelan Jr., MD Physical Exam GENERAL: Obese, well-developed patient, in no apparent distress. SKIN: No rashes, ecchymoses or lesions. Cool and dry. HEAD: Atraumatic. Normocephalic. No temporal or scalp tenderness. EYES: Pupils equal round and reactive. Extraocular motions intact. No scleral icterus. No injection or drainage. ENT: Nose without bleeding, purulent drainage or septal hematoma. Throat without erythema, tonsillar hypertrophy or exudate. Uvula midline. Airway patent. NECK: Trachea midline. No JVD or lymphadenopathy. Supple, nontender, no meningeal signs. CARDIOVASCULAR: Regular rate and rhythm without murmurs, gallops, or rubs. RESPIRATORY: Clear to auscultation. Breath sounds equal bilaterally. No wheezes , rales, or rhonchi. GASTROINTESTINAL: Abdomen soft, non-tender, nondistended. No hepato-splenomegaly , or palpable masses. No guarding. MUSCULOSKELETAL: Extremities without clubbing, cyanosis, or edema. No joint tenderness, effusion, or edema noted. No calf tenderness. Negative Homans sign bilaterally. Right breast larger than left marsha outer quadrants. Right outer quadrants with erythema, induration and moderate tenderness. Drain in place with light brown color discharge. No nipple d/c NEUROLOGICAL: Awake and alert. Non focal exam. Psych cooperative IV line sites with no e.o infection. Assessment & Plan Remarks Sepsis present on admission Right breast cellulitis, phlegmone - no clinical or radiological e/o abscess - clinically improving locally and systemically Diabetes uncontrolled Diabetic neuropathy Obesity BMI 41.7 Recommendations: Continue Ceftriaxone to cover GNR Continue Flagyl for anaerobic coverage. Continue Diflucan oral for another 5 days. Continue nystatin cream local application Cultures for IR fluid entered by me. rubi Ruiz he will call me once cultures finalized. Hopefully DC in am. Connie Rojas MD Nov 15, 2017 16:19
[2017-11-15] MEDS: cefTRIAXone INJ 2,000 MG in SODIUM CHLORIDE 0.9% INJ 100 ML IV SCH (16:42)
--- NOTE | 2017-11-15 17:01 | HHI.PR ---
Subjective Remarks no sob aler no complaints Objective Vital Signs Date Time Temp Pulse Resp B/P (MAP) Pulse Ox O2 Delivery O2 Flow Rate FiO2 11/15/17 12:30 97.6 85 18 138/69 (92) 96 11/15/17 12:00 86 11/15/17 11:41 21 11/15/17 10:29 98 Room Air 11/15/17 08:07 18 11/15/17 08:06 98.5 80 18 156/76 (102) 98 11/15/17 08:00 76 11/15/17 06:00 97.9 85 19 140/72 (94) 94 11/15/17 04:00 84 11/15/17 04:00 Room Air 11/15/17 00:45 98.3 85 18 137/68 (91) 96 11/15/17 00:20 99 21 11/15/17 00:15 82 11/14/17 23:45 Room Air 11/14/17 21:15 97.8 97 17 150/86 (107) 99 11/14/17 20:00 93 11/14/17 20:00 Room Air 11/14/17 18:35 91 I/O 11/14/17 11/14/17 11/14/17 11/15/17 11/15/17 11/15/17 07:00 15:00 23:00 07:00 15:00 23:00 Intake Total 1740 ml 1000 ml Output Total 5 ml 100 ml 75 ml 50 ml Balance -5 ml 1640 ml 925 ml -50 ml Intake Oral 1640 ml 1000 ml IV Total 100 ml Drainage Total 5 ml 100 ml 75 ml 50 ml # Voids 2 4 2 # Bowel Movements 0 0 0 Result Diagram: 11/12/17 1139 11/15/17 0703 Objective Remarks GENERAL: SKIN: Warm and dry. HEAD: Atraumatic. Normocephalic. EYES: Pupils equal and round. No scleral icterus. No injection or drainage. ENT: No nasal bleeding or discharge. Mucous membranes pink and moist. NECK: Trachea midline. No JVD. CARDIOVASCULAR: Regular rate and rhythm. RESPIRATORY: No accessory muscle use. Clear to auscultation. Breath sounds equal bilaterally. GASTROINTESTINAL: Abdomen soft, non-tender, nondistended. Hepatic and splenic margins not palpable. MUSCULOSKELETAL: Extremities without clubbing, cyanosis, or edema. No obvious deformities. NEUROLOGICAL: Awake and alert. No obvious cranial nerve deficits. Motor grossly within normal limits. Five out of 5 muscle strength in the arms and legs. Normal speech. PSYCHIATRIC: Appropriate mood and affect; insight and judgment normal. Assessment and Plan Assessment and Plan ? bronchial asthma stable at present plan prn albuterol will sign off office 1 week Nena Barrett MD Nov 15, 2017 17:01
[2017-11-15] MEDS: FLUCONAZOLE 200 MG TAB PO SCH (20:55)
[2017-11-15] MEDS: GABAPENTIN 300 MG CAP PO SCH (20:56)
[2017-11-15] MEDS: MAGNESIUM HYDROXIDE SUSP 30 ML CUP PO PRN (21:56)
[2017-11-16] VITALS (8 sets, daily range): BP systolic 141–170; BP diastolic 82–91; PULSE 72–90; RESP 20–21; TEMP 97.9–98.3; O2SAT 95–100
[2017-11-16] MEDS: ACETAMINOPHEN/HYDROcodone 325 MG/5 MG TAB PO PRN (01:42)
[2017-11-16] MEDS: metroNIDAZOLE 500 MG TAB PO SCH ×2 (05:37→13:28)
[2017-11-16] MEDS: NYSTATIN 100,000 UNIT/GM CREAM 15 GM TOPICAL SCH ×2 (05:37→13:29)
--- NOTE | 2017-11-16 08:51 | HHI.PR ---
Subjective Remarks in no acute distress. no fever. denies pain. no sob. drain in place. Objective Vitals Vital Signs Date Time Temp Pulse Resp B/P (MAP) Pulse Ox O2 Delivery O2 Flow Rate FiO2 11/16/17 04:00 72 11/16/17 03:16 98.0 80 20 141/83 (102) 95 11/16/17 02:37 20 11/16/17 00:00 97.9 86 21 170/91 (117) 95 11/16/17 00:00 76 11/15/17 20:00 Room Air 11/15/17 20:00 98.9 91 19 153/80 (104) 100 11/15/17 12:30 97.6 85 18 138/69 (92) 96 11/15/17 12:00 86 11/15/17 11:41 21 11/15/17 10:29 98 Room Air I/O 11/15/17 11/15/17 11/15/17 11/16/17 11/16/17 11/16/17 07:00 15:00 23:00 07:00 15:00 23:00 Intake Total 1000 ml 100 ml 480 ml Output Total 75 ml 50 ml Balance 925 ml 50 ml 480 ml Intake Oral 1000 ml 480 ml IV Total 100 ml Drainage Total 75 ml 50 ml # Voids 2 5 # Bowel Movements 0 1 Result Diagram: 11/12/17 1139 11/15/17 0703 Imaging Last Impressions Breast Ultrasound 11/15/17 1200 Signed Impressions: Service Date/Time: October 08:15 - CONCLUSION: No appreciable abscess. Jelani Castelan Jr., MD Abscess Drainage CT 11/13/17 1403 Signed Impressions: Service Date/Time: Monday, November 13, 2017 14:55 - CONCLUSION: 1. CT- guided placement of 10 [place] drainage catheter in right breast abscess. 50 cc of odorous purulent fluid was removed immediately following catheter placement. Bill Pierre MD Lower Extremity Ultrasound 11/13/17 0000 Signed Impressions: Service Date/Time: Monday, November 13, 2017 13:27 - CONCLUSION: 1. No sonographic evidence for lower extremity DVT. 2. The Suspect findings on chest CTA exam are artifactual, due to motion artifact and suboptimal contrast bolus timing although I cannot be definitive. Bill Pierre MD CT Angiography 11/13/17 0000 Signed Impressions: Service Date/Time: Monday, November 13, 2017 10:45 - CONCLUSION: 1. Suboptimal pulmonary artery examination with inadequate opacification of subsegmental pulmonary artery branches. There is one subsegmental right lower lobe pulmonary artery branch with focal filling defect out of proportion to the degree of under opacification in the remaining subsegmental branches. This may be due to volume averaging artifact although a small pulmonary artery embolism in this branch cannot be excluded. Consider ultrasound examination of the lower extremities to evaluate for lower extremity DVT. If patient has DVT, would consider this a small pulmonary artery embolism. In the absence of DVT, this finding is nonspecific and of uncertain significance. 2. Diffuse inflammatory stranding with partially imaged collection of air and likely fluid in the right breast. Patient was recently evaluated for abscess on 11/09/2017. Query surgical intervention/debridement? If no intervention has been performed, findings are concerning for possible interval development of a breast abscess. Consider repeat ultrasound examination for further evaluation. 3. Single prominent subcarinal lymph node, nonspecific and likely reactive in etiology. Bill Pierre MD Chest X-Ray 11/12/17 0000 Signed Impressions: Service Date/Time: Sunday, November 12, 2017 11:08 - CONCLUSION: No acute disease. Ifeanyi Wilder MD Objective Remarks GENERAL: This is a well-nourished, well-developed patient, in no apparent distress. CARDIOVASCULAR: Regular rate and regular rhythm without murmurs, gallops, or rubs. RESPIRATORY: Clear to auscultation. Breath sounds equal bilaterally. No wheezes , rales, or rhonchi. breast; drain in place. GASTROINTESTINAL: Abdomen soft, non-tender, nondistended. Normal, active bowel sounds MUSCULOSKELETAL: Extremities without clubbing, cyanosis, or edema. NEURO: Alert & Oriented x4 to person, place, time, situation. Moves all ext x4 Procedures right breast abscess drainage. Medications and IVs Inpatient Medications Acetaminophen (Tylenol) 650 mg Q4H PRN PO FEVER Last administered on 11/12/17at 21:16; Start 11/07/17 at 13:15 Acetaminophen/ Hydrocodone Bitart ([place] 5-325 Mg) 1 tab Q4H PRN PO PAIN 1-5 Last administered on 11/16/17at 01:42; Start 11/07/17 at 00:45 Acetaminophen/ Hydrocodone Bitart ([place] 10-325 Mg) 1 tab Q4H PRN PO PAIN 6-10 Last administered on 11/14/17at 07:23; Start 11/07/17 at 00:45 Albuterol/ Ipratropium (Duoneb Neb) 1 ampule Q6HR NEB PRN NEB SHORTNESS OF BREATH; Start 11/12/17 at 11:15 Calcium Carbonate (Tums Chew) 500 mg Q2H PRN CHEW HEARTBURN Last administered on 11/14/17at 12:08; Start 11/10/17 at 22:00 Cefazolin Sodium/ Dextrose 50 ml @ 100 mls/hr Q8H IV Last administered on 11/13at 12:00; Start 11/08/17 at 20:00; Stop 11/13/17 at 17:16; Status DC Ceftriaxone Sodium 2000 mg/ Sodium Chloride 100 ml @ 200 mls/hr Q24H IV Last administered on 11/15/17at 16:42; Start 11/13/17 at 18:00 Dextrose (D50w (Vial) Inj) 50 ml UNSCH PRN IV PUSH HYPOGLYCEMIA-SEE COMMENTS; Start 11/07/17 at 12:30 Diphenhydramine HCl (Benadryl Inj) 50 mg ONCE ONCE IV PUSH Last administered on 11/06/17at 22:42; Start 11/06/17 at 22:00; Stop 11/06/17 at 22:04; Status DC Fluconazole (Diflucan) 200 mg Q24H PO Last administered on 11/15/17at 20:55; Start 11/08/17 at 20:00 Furosemide (Lasix) 40 mg DAILY PO Last administered on 11/15/17at 08:09; Start 11/07/17 at 09:00 Gabapentin (Neurontin) 600 mg HS PO Last administered on 11/15/17at 20:56; Start 11/07/17 at 21:00 Glucagon (Glucagon Inj) 1 mg UNSCH PRN OTHER HYPOGLYCEMIA-SEE COMMENTS; Start 11/07/17 at 12:30 Ibuprofen (Motrin) 600 mg ONCE ONCE PO ; Start 11/06/17 at 22:00; Stop at 22:04; Status DC Insulin Aspart (NovoLOG SUPPLEMENTAL SCALE) 1 ACHS SLIDING SCALE SQ Last administered on 11/15/17at 21:04; Start 11/07/17 at 17:00 Insulin Detemir (Levemir Inj) 14 units Q12HR SQ Last administered on 11/15/17at 20:56; Start 11/14/17 at 21:00 Insulin Human Isoph/Insulin Regular (NovoLIN 70/30 INJ) 50 units DAILY SQ Last administered on 11/07/17at 08:20; Start 11/07/17 at 09:00; Status Future Hold Insulin Human Regular (NovoLIN R INJ) 3 units STAT ONCE IV PUSH Last administered on 11/06/17at 23:14; Start 11/06/17 at 22:45; Stop 11/06/17 at 22:46 ; Status DC Levofloxacin/ Dextrose 150 ml @ 100 mls/hr Q24H IV Last administered on at 08:21; Start 11/07/17 at 09:00; Stop 11/08/17 at 18:08; Status DC Losartan Potassium (Cozaar) 50 mg DAILY PO Last administered on 11/15/17at 08:08 ; Start 11/07/17 at 09:00 Magnesium Hydroxide (Milk Of Magnesia Liq) 30 ml DAILY PRN PO CONSTIPATION Last administered on 11/15/17at 21:56; Start 11/09/17 at 16:45 Metformin HCl (Glucophage) 1,000 mg BIDPC PO Last administered on 11/14/17at 16: 52; Start 11/07/17 at 09:00; Status Future Hold Metoclopramide HCl (Reglan Inj) 10 mg ONCE ONCE IV PUSH Last administered on at 22:42; Start 11/06/17 at 22:00; Stop 11/06/17 at 22:04; Status DC Metronidazole (Flagyl) 500 mg Q8HR PO Last administered on 11/16/17at 05:37; Start 11/13/17 at 17:15 Naloxone HCl (Narcan Inj) 0.4 mg UNSCH PRN IV PUSH SEE LABEL COMMENTS; Start at 22:45 Nifedipine (Procardia Xl) 30 mg ONCE ONCE PO Last administered on 11/12/17at 14 :46; Start 11/12/17 at 11:15; Stop 11/12/17 at 11:39; Status DC Nystatin (Mycostatin Cream) 1 applic Q6HR TOPICAL Last administered on at 16:42; Start 11/09/17 at 00:00 Patient Own Medication PT OWN MED: Tabl... DAILY PO ; Start 11/07/17 at 09:00; Status Future Hold Pharmacy Profile Note 0 ml @ 0 mls/hr UNSCH OTHER ; Start 11/07/17 at 17:30; Stop 11/08/17 at 18:08; Status DC Piperacillin Sod/ Tazobactam Sod 100 ml @ 200 mls/hr ONCE ONCE IV Last administered on 11/06/17at 22:42; Start 11/06/17 at 22:00; Stop 11/06/17 at 22:29 ; Status DC Potassium Chloride (KCl) 30 meq ONCE ONCE PO Last administered on 11/12/17at 18 :51; Start 11/12/17 at 18:00; Stop 11/12/17 at 18:01; Status DC Sodium Chloride 1,000 ml @ 125 mls/hr Q8H IV Last administered on 11/12/17at 02 :50; Start 11/07/17 at 04:15; Stop 11/12/17 at 10:48; Status DC Sodium Chloride (NS Flush) 2 ml BID IV FLUSH Last administered on 11/15/17at 20: 56; Start 11/07/17 at 09:00 Vancomycin HCl 1500 mg/Sodium Chloride 515 ml @ 257.5 mls/ hr Q12HR ONCE IV ; Start 11/08/17 at 09:00; Stop 11/08/17 at 10:59; Status DC Vancomycin HCl 2000 mg/Sodium Chloride 520 ml @ 250 mls/hr Q12H IV Last administered on 11/08/17at 15:12; Start 11/08/17 at 15:00; Stop 11/08/17 at 18:08 ; Status DC Vancomycin HCl 2500 mg/Sodium Chloride 525 ml @ 250 mls/hr NOW ONCE IV Last administered on 11/07/17at 19:00; Start 11/07/17 at 19:00; Stop 11/07/17 at 21:05 ; Status DC Vancomycin/Sodium Chloride 200 ml @ 200 mls/hr Q12H IV ; Start 11/07/17 at 17: 30; Stop 11/07/17 at 18:38; Status DC A/P Problem List: (1) Sepsis ICD Code: A41.9 - Sepsis, unspecified organism (2) Cellulitis of right breast ICD Code: N61.0 - Mastitis without abscess (3) Hypertension ICD Code: I10 - Essential (primary) hypertension (4) Diabetes ICD Code: E11.9 - Type 2 diabetes mellitus without complications (5) Leukocytosis ICD Code: D72.829 - Elevated white blood cell count, unspecified Assessment and Plan Sepsis due to Right breast cellulitis - improving. - s/p abscess drainage by IR. - ID f/u appreciated and started on IV Rocephin. -will follow the cultures. -repeated sonogram of the right breast with no abscess. -surgery f/u appreciated; cleared for discharge home with drain and outpatient f/u on Sunday. -mammogram as outpatient. sob/ hypoxemia CXR with no acute disease. CTA with questionable filling defect- however in light of negative lower extremities venous doppler, might be in fact due to motion artifact. will continue with oxygen and neb treatments as needed. of note patient has a long history of smoking; will need PFT as outpatient and this was d/w the patient. pulmonary consult appreciated. will repeat walk test today. Diabetes- -resume insulin 70/30 upon discharge. -continue to monitor and adjust the regimen as needed. Hypertension, chronic -Resumed home medications and monitor vitals The patient currently on losartan. CKD, creatinine 1.2 at baseline -Resumed home medications -Avoid nephrotoxins Hypokalemia;replaced. Discharge Planning likely dc home later today. will have [facility]. see med list. f/u; pcp, general surgery, ID and pulmonary. d/w the patient. d/w and Jason. d/w . time spent 35 min. Problem Qualifiers (1) Sepsis: Qualified Codes: A41.9 - Sepsis, unspecified organism (2) Diabetes: Qualified Codes: E11.65 - Type 2 diabetes mellitus with hyperglycemia; Z79.4 - detention (current) use of insulin (3) Leukocytosis: Qualified Codes: D72.829 - Elevated white blood cell count, unspecified Benton Ruiz MD Nov 16, 2017 08:51
[2017-11-16] MEDS ORDERED: VENTAER INH (08:53)
[2017-11-16] MEDS: FUROSEMIDE 40 MG TAB PO SCH (09:02)
[2017-11-16] MEDS: POTASSIUM CHLORIDE 8 MEQ CAP PO SCH (09:02)
[2017-11-16] MEDS: SODIUM CHLORIDE 0.9% FLUSH 10 ML FLUSH IV FLUSH SCH (09:02)
[2017-11-16] MEDS: INSULIN DETEMIR 100 UNITS/ML VIAL SQ SCH (09:02)
[2017-11-16] MEDS: LOSARTAN 50 MG TAB PO SCH (09:02)
[2017-11-16] MEDS: INSULIN ASPART SUPPLEMENTAL SCALE SQ SCH ×2 (09:02→13:29)
[2017-11-16] MEDS: ACETAMINOPHEN/HYDROcodone 325 MG/10 MG TAB PO PRN (10:28)
[2017-11-16] MEDS ORDERED: METR-1 PO (12:18)
[2017-11-16] MEDS ORDERED: CEPH-460 PO (12:18)
--- NOTE | 2017-11-16 12:21 | HHI.DS ---
Discharge Summary Admission Date Nov 06, 2017 at 22:45 Discharge Date: Nov 16, 2017 Admitting Diagnosis right chest wall and right breast cellulitis, IDDM (1) Sepsis ICD Code: A41.9 - Sepsis, unspecified organism Diagnosis: Principal (2) Cellulitis of right breast ICD Code: N61.0 - Mastitis without abscess Diagnosis: Principal (3) Hypertension ICD Code: I10 - Essential (primary) hypertension Diagnosis: Secondary (4) Diabetes ICD Code: E11.9 - Type 2 diabetes mellitus without complications Diagnosis: Secondary (5) Leukocytosis ICD Code: D72.829 - Elevated white blood cell count, unspecified Diagnosis: Secondary Procedures right breast abscess drainage. Brief History - From Admission 52-year-old female with a history of hypertension, diabetes, diabetic neuropathy presented to the ED with complaints of painful lump under her right breast. Patient states on Sunday she noticed a right lump under her right breast that is very painful, throbbing in nature, 8 out of 10, worse with movement with associated nausea, fever and chills. Patient states 3 years ago she had an infection in her right foot in which she had similar symptoms so she came to the hospital. She is currently on insulin at home and states her sugars are not controlled but she does follow up with PCP. She denies any chest pain. She does state she gets shortness of breath with exertion since Sunday. CBC/BMP: 11/12/17 1139 11/15/17 0703 Significant Findings Laboratory Tests Test 11/13/17 21:05 11/15/17 07:03 C-Reactive Protein 23.00 MG/DL (0.00-0.30) Blood Urea Nitrogen 6 MG/DL (7-18) Random Glucose 176 MG/DL (74-106) Imaging Last Impressions Breast Ultrasound 11/15/17 1200 Signed Impressions: Service Date/Time: October 08:15 - CONCLUSION: No appreciable abscess. Jelani Castelan Jr., MD Abscess Drainage CT 11/13/17 1403 Signed Impressions: Service Date/Time: Monday, November 13, 2017 14:55 - CONCLUSION: 1. CT- guided placement of 10 [place] drainage catheter in right breast abscess. 50 cc of odorous purulent fluid was removed immediately following catheter placement. Bill Pierre MD Lower Extremity Ultrasound 11/13/17 Signed Impressions: Service Date/Time: Monday, November 13, 2017 13:27 - CONCLUSION: 1. No sonographic evidence for lower extremity DVT. 2. The Suspect findings on chest CTA exam are artifactual, due to motion artifact and suboptimal contrast bolus timing although I cannot be definitive. Bill Pierre MD CT Angiography 11/13/17 Signed Impressions: Service Date/Time: Monday, November 13, 2017 10:45 - CONCLUSION: 1. Suboptimal pulmonary artery examination with inadequate opacification of subsegmental pulmonary artery branches. There is one subsegmental right lower lobe pulmonary artery branch with focal filling defect out of proportion to the degree of under opacification in the remaining subsegmental branches. This may be due to volume averaging artifact although a small pulmonary artery embolism in this branch cannot be excluded. Consider ultrasound examination of the lower extremities to evaluate for lower extremity DVT. If patient has DVT, would consider this a small pulmonary artery embolism. In the absence of DVT, this finding is nonspecific and of uncertain significance. 2. Diffuse inflammatory stranding with partially imaged collection of air and likely fluid in the right breast. Patient was recently evaluated for abscess on 11/09/2017. Query surgical intervention/debridement? If no intervention has been performed, findings are concerning for possible interval development of a breast abscess. Consider repeat ultrasound examination for further evaluation. 3. Single prominent subcarinal lymph node, nonspecific and likely reactive in etiology. Bill Pierre MD Chest X-Ray 11/12/17 Signed Impressions: Service Date/Time: Sunday, November 12, 2017 11:08 - CONCLUSION: No acute disease. Ifeanyi Wilder MD PE at Discharge GENERAL: This is a well-nourished, well-developed patient, in no apparent distress. CARDIOVASCULAR: Regular rate and regular rhythm without murmurs, gallops, or rubs. RESPIRATORY: Clear to auscultation. Breath sounds equal bilaterally. No wheezes , rales, or rhonchi. breast; drain in place. GASTROINTESTINAL: Abdomen soft, non-tender, nondistended. Normal, active bowel sounds MUSCULOSKELETAL: Extremities without clubbing, cyanosis, or edema. NEURO: Alert & Oriented x4 to person, place, time, situation. Moves all ext x4 Hospital Course patient was admitted with cellulitis and abscess of the right breast. she underwent the drainage of the right breast abscess by IR. she was evaluated by ID and general surgery. she was started on I antibiotics which was switched to Keflex and Flagyl upon discharge. she became hypoxemic during this admission. CTA of the chest was negative for PE. she passed the walk test and was evaluated by pulmonary. she will have a f/u with pcp, ID,general surgery and pulmonary. Pt Condition on Discharge: Stable Discharge Disposition: Discharge Home Discharge Time: > 30 minutes Discharge Instructions DIET: Follow Instructions for: Heart Healthy Diet, Diabetic Diet Activities you can perform: Regular-No Restrictions Follow up Referrals: Appointment for Follow Up - 1 Week @ [facility] with Gricelda Hayden MD PCP Follow-up Pulmonology Surgical New Medications: Albuterol 18 GM Inh (Ventolin Hfa 18 GM Inh) 90 Mcg/Act Aer 2 PUFF INH Q6H PRN for SHORTNESS OF BREATH, #1 INHALER 0 Refills Cephalexin (Keflex) 500 Mg Cap 500 MG PO Q6H for Infection for 21 Days, #84 CAP 0 Refills Fluconazole (Diflucan) 100 Mg Tab 100 MG PO DAILY for Infection for 5 Days, #5 TAB 0 Refills Hydrocodone-Acetaminophen ([place]) 5 Mg-325 Mg Tab 1 TAB PO Q6H PRN for PAIN, #15 TAB 0 Refills Metronidazole (Flagyl) 500 Mg Tab 500 MG PO TID for Infection for 21 Days, TAB 0 Refills Nystatin Topical (Nystatin Topical) 100,000 unit/gm Cream 1 APPLIC TOPICAL Q6HR for infection for 10 Days, TUBE 0 Refills Continued Medications: Dapagliflozin (Farxiga) 10 Mg Tab 10 MG PO DAILY for Blood Sugar Management, #30 TAB 0 Refills Furosemide (Furosemide) 40 Mg Tab 40 MG PO DAILY, #30 TAB 0 Refills Gabapentin (Gabapentin) 600 Mg Tab 600 MG PO HS, #30 TAB 0 Refills Insulin Human Isophane-Regular 70-30 Inj (Novolin 70-30 Inj) 1,000 Unit/10 Ml Vial 1 UNITS SQ for Blood Sugar Management, ML 0 Refills Insulin Human Isophane-Regular 70-30 Inj (Novolin 70-30 Inj) 1,000 Unit/10 Ml Vial 50 UNITS SQ DAILY for Blood Sugar Management, ML 0 Refills Insulin Human Isophane-Regular 70-30 Inj (Novolin 70-30 Inj) 1,000 Unit/10 Ml Vial 45 UNITS SQ HS for Blood Sugar Management, ML 0 Refills Losartan (Cozaar) 50 Mg Tab 40 MG PO DAILY for Blood Pressure Management, #30 TAB 0 Refills Metformin (Metformin) 1,000 Mg Tab 1000 MG PO BIDPC for Blood Sugar Management, #60 TAB 0 Refills With meals Potassium Chloride ER (Potassium Chloride ER) 8 Meq Cap 8 MEQ PO DAILY for Electrolyte Replacement, #30 CAP 0 Refills Benton Ruiz MD Nov 16, 2017 12:21
[2017-11-16] MEDS ORDERED: NORC5TAB PO (14:40)
== END 2017-11-16 14:53 | disposition home or self-care (01) | DRG 872 ==
LOC: NEPD 20:26 → NEDA 22:45 → N04B 11-07 01:37
PROVIDERS: ADMIT Internal Medicine; ATTEND Internal Medicine
PROC: 0H9T30Z Drainage of Right Breast with Drainage Device, Percutaneous Approach (ICD-10-PCS; principal; 2017-11-13)
DX: A41.9 Sepsis, unspecified organism (principal); E11.22 Type 2 diabetes mellitus with diabetic chronic kidney disease; E11.40 Type 2 diabetes mellitus with diabetic neuropathy, unspecified; E11.65 Type 2 diabetes mellitus with hyperglycemia; E11.319 Type 2 diabetes mellitus with unspecified diabetic retinopathy without macular edema; Z79.4 Long term (current) use of insulin; Z79.84 Long term (current) use of oral hypoglycemic drugs; Z68.41 Body mass index [BMI] 40.0-44.9, adult; E66.9 Obesity, unspecified; N61.1 Abscess of the breast and nipple; N61.0 Mastitis without abscess; I12.9 Hypertensive chronic kidney disease with stage 1 through stage 4 chronic kidney disease, or unspecified chronic kidney disease; N18.9 Chronic kidney disease, unspecified; F17.210 Nicotine dependence, cigarettes, uncomplicated; E87.6 Hypokalemia; R09.02 Hypoxemia
CPT/HCPCS: 71046; 71275; 75989; 76642; 76937; 80048; 80053; 82948; 83036; 83605; 83735; 84100; 84132; 85025; 86140; 87015; 87040; 87070; 87102; 87116; 87185; 87205; 87206; 87804; 93970; 94618; 94664; C1729; C1769; J0690; J0696; J1200; J1815; J1956; J2543; J2765; J3010; J3370; J7030; J7040; Q9967

== ENCOUNTER → 2017-12-10 | Day surgery (SDC) | payer MEDICAID ==
[~2017-12-10] MED LIST changes: +ATROPINE SULFATE 1% OPHT SOLN 5 ML BTL ONE; +CEPH-460 PO; +DEXAMETHASONE SOD PHOS 4 MG/ML VIAL ONE; +DEXTROSE 50% IN WATER 50 ML SYRINGE ONE; +DIFL100T PO; +EPINEPHrine HCL (1:1000) 1 MG/ML VIAL ONE; -EZET10 PO; +FLURBIPROFEN 0.03% OPHT SOLN 2.5 ML BTL ONE; +HYALURONIDASE/LIDOCAINE/BUPIVACAINE 5 ML SYR ONE; +LACTATED RINGER'S 1000 ML INJ 1,000 ML ONE; -METO25TA3 PO; +METR-1 PO; +NEOMYCIN/POLYMYXIN/DEXAMETHASONE OPTH OINT 3.5 GM TUBE ONE; +NORC5TAB PO; +NYST15T TOPICAL; +PHENYLEPHRINE HCL 2.5% OPTH SOLN 2 ML BTL ONE; +SODIUM CHLORIDE 0.9% INJ 10 ML ONE; +TETRACAINE 0.5% OPTH SOLN 15 ML BTL ONE; +TROPICAMIDE 1% OPHT SOLN 15 ML BTL ONE; +VENTAER INH; +ceFAZolin INJ 1,000 MG VIAL ONE
--- NOTE | 2017-12-18 09:25 | TN ---
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 OPERATION: Pars plana vitrectomy, membrane peeling, endolaser right eye. SURGEON: Jelani Montanez MD ANESTHESIA: MAC. COMPLICATIONS: None. DESCRIPTION OF THE PROCEDURE IN DETAIL: After informed consent was obtained, the patient was anesthetized with retrobulbar anesthesia in the preoperative area. He was then brought to the operating room, prepared and draped in the usual sterile fashion. A wire lid speculum was placed on the patient's right eye. 23-gauge vitrectomy cannulas were then placed in the lower temporal, supratemporal and superonasal quadrants 3-mm posterior to the corneoscleral limbus. Infusion cannula was placed lower temporally. Core vitrectomy was then performed. There were fibrovascular attachments throughout the posterior pole which were dissected free and the vitrectomies carried out as far as possible in the vitreous space. These membranes were then both de-laminated and segmented and removed. After removal of all the membranes, endolaser was used to place panretinal photocoagulation. Careful indirect ophthalmoscopy with scleral depression was then performed. No peripheral breaks were noted. The three vitrectomy cannulas were then removed. Subconjunctival injections of dexamethasone and Ancef were placed, an atropine drop and Maxitrol ointment, patch and shield were then applied. The patient tolerated the procedure well. There were no complications. She will follow up tomorrow in our [place] office. Jelani Montanez MD TAB/BT /11:37 AM /9:19 AM
== END | disposition home or self-care (01) ==
LOC: ESDC 13:24
PROVIDERS: ATTEND Ophthalmology Retina Specialist
DX: E11.3531 Type 2 diabetes mellitus with proliferative diabetic retinopathy with traction retinal detachment not involving the macula, right eye (principal); H43.11 Vitreous hemorrhage, right eye; Z79.4 Long term (current) use of insulin
CPT/HCPCS: 00145; 67113; 82948; J0171; J0690; J1100; J7120

== ENCOUNTER 2018-01-29 18:19 | Emergency (ER) | payer MEDICAID ==
[~2018-01-29] VITALS: Ht 177.8 cm; Wt 112.0 kg
[~2018-01-29 18:19] MED LIST changes: -ATROPINE SULFATE 1% OPHT SOLN 5 ML BTL ONE; -DEXAMETHASONE SOD PHOS 4 MG/ML VIAL ONE; -DEXTROSE 50% IN WATER 50 ML SYRINGE ONE; -EPINEPHrine HCL (1:1000) 1 MG/ML VIAL ONE; -FLURBIPROFEN 0.03% OPHT SOLN 2.5 ML BTL ONE; -HYALURONIDASE/LIDOCAINE/BUPIVACAINE 5 ML SYR ONE; -LACTATED RINGER'S 1000 ML INJ 1,000 ML ONE; -NEOMYCIN/POLYMYXIN/DEXAMETHASONE OPTH OINT 3.5 GM TUBE ONE; -PHENYLEPHRINE HCL 2.5% OPTH SOLN 2 ML BTL ONE; -SODIUM CHLORIDE 0.9% INJ 10 ML ONE; -TETRACAINE 0.5% OPTH SOLN 15 ML BTL ONE; -TROPICAMIDE 1% OPHT SOLN 15 ML BTL ONE; -ceFAZolin INJ 1,000 MG VIAL ONE
[2018-01-29 18:45] VITALS: BP 118/65; PULSE 100; RESP 16; TEMP 97.4; O2SAT 99
[2018-01-29] MEDS ORDERED: GABA300C5 PO (19:16)
[2018-01-29] MEDS ORDERED: NOVO7030P2 SQ ×2 (19:16)
--- NOTE | 2018-01-29 19:39 | PD ---
HPI Chief Complaint: Musculoskeletal Complaint Time Seen by Provider: 19:07 Travel History International Travel<30 days: No Contact w/Intl Traveler<30days: No History of Present Illness HPI 52-year-old female, sent by [facility], with complaint of left calf pain that started today after she felt a "pop" in her left leg while walking. She was sent by [facility] to rule out DVT. She has history of hypertension and takes medications and they were also concerned about her blood pressure reading 176/ 96. Patient's blood pressure reading here at [place] is 118/65. She is compliant with her medications. Pain is to the lower left calf region. Minimal edema and ecchymosis noted to the area. Denies history of DVT. Denies recent surgeries or travel. Denies fever, vomiting. Denies anticoagulant therapy. Denies paresthesias, loss of sensation, decreased range of motion, decreased strength to the affected extremity. Has been ambulatory in the affected extremity. Pain is 10/10 with pressure while walking. Pain is absent while at rest. Has not taken any medication or try any treatments to alleviate her symptoms. Primary care provider is Dr. Oneyda Archer. No known allergies. History of hypertension, diabetes mellitus, peripheral neuropathy. Has no other medical complaints. No other modifying factors or associated signs and symptoms. PFSH Past Medical History Cancer: No Cardiovascular Problems: Yes High Cholesterol: Yes Diabetes: Yes Patient Takes Glucophage: No Diminished Hearing: No Gastrointestinal Disorders: Yes Genitourinary: No Hypertension: Yes Musculoskeletal: No Neurologic: No Psychiatric: No Reproductive: No Respiratory: No ?: Not : 1 Para: 1 Past Surgical History Section: Yes Gynecologic Surgery: Yes (c section) Oral Surgery: Yes (DENTAL) Other Surgery: Yes Social History Alcohol Use: No Tobacco Use: Yes (10/23 PPD) Substance Use: No Allergies-Medications (Allergen,Severity, Reaction): Coded Allergies: No Known Allergies (Verified Allergy, Unknown, 11/06/17) Reported Meds & Prescriptions Reported Meds & Active Scripts Active Walker/Adult/Folding (Device) 1 Mis Mis Ea .XX DIRECTED Ibuprofen 800 Mg Tab 800 Mg PO Q6HR PRN Robaxin (Methocarbamol) 500 Mg Tab 500 Mg PO QID PRN Reported Novolin 70-30 Inj (Insulin Human Isoph/Insulin Regular) 1,000 Unit/10 Ml Vial 50 Units SQ DAILY@1600 Novolin 70-30 Inj (Insulin Human Isoph/Insulin Regular) 1,000 Unit/10 Ml Vial 50 Units SQ DAILYAC Gabapentin 300 Mg Cap 300 Mg PO HS Furosemide 40 Mg Tab 40 Mg PO DAILY Farxiga (Dapagliflozin) 10 Mg Tab 10 Mg PO DAILY Cozaar (Losartan Potassium) 50 Mg Tab 40 Mg PO DAILY Metformin (Metformin HCl) 1,000 Mg Tab 1,000 Mg PO BIDPC With meals Review of Systems Except as stated in HPI: all other systems reviewed are Neg Physical Exam Narrative GENERAL: Well-nourished, well-developed black female patient, in no acute distress SKIN: Warm and dry. HEAD: Atraumatic. Normocephalic. EYES: Pupils equal and round. No scleral icterus. No injection or drainage. ENT: Mucosa pink and moist. Airway patent. NECK: Trachea midline. CARDIOVASCULAR: Regular rate. RESPIRATORY: No accessory muscle use. GASTROINTESTINAL: Obese. MUSCULOSKELETAL: Left lower extremity supple and non-tense with 2+ pedal pulse and sensory intact without erythema or edema. Reproducible tenderness on palpation to the posterior lower calf; area with ecchymosis noted; without erythema or warmth to touch. No obvious deformities. No clubbing. No cyanosis. No edema. NEUROLOGICAL: Awake and alert. Oriented 3. No obvious cranial nerve deficits. Motor grossly within normal limits. Normal speech. PSYCHIATRIC: Appropriate mood and affect; insight and judgment normal. Data Data Last Documented VS Vital Signs Date Time Temp Pulse Resp B/P (MAP) Pulse Ox O2 Delivery O2 Flow Rate FiO2 01/29/18 18:45 97.4 100 16 118/65 (82) 99 Orders Orders Tibia/Fibula (Ap/Lat) (01/29/18 19:22) Crutches (01/29/18 19:22) Us Leg Venous Doppler (01/29/18 20:14) Ed Discharge Order (01/29/18 20:50) Splint Or Brace Apply/Monitor (01/29/18 20:50) [facility] Medical Decision Making Medical Screen Exam Complete: Yes Emergency Medical Condition: Yes Medical Record Reviewed: Yes Differential Diagnosis Muscle strain of leg, tendon strain of leg, leg pain, leg cramp, stress fracture , DVT Narrative Course 52-year-old female with left calf pain. Sent by [facility] to rule out DVT. Left leg venous Doppler ultrasound and left tib-fib x-ray ordered. I offered the patient pain medication and she declined. Crutches order for support. [id number]: Left tib-fib x-ray and left leg venous Doppler ultrasound concludes: Lower Extremity Ultrasound 01/29/182013 Signed Impressions: Service Date/Time: Monday, January 29, 2018 20:12 - CONCLUSION: Negative exam with no evidence of deep venous thrombosis. Ray Cabrera MD Tibia/Fibula X-Ray 01/29/181921 Signed Impressions: Service Date/Time: Monday, January 29, 2018 19:44 - CONCLUSION: Mild apparent soft tissue prominence along the posterior calf musculature. Ray Cabrera MD Patient given copies of the radiology reports. Hiram bandage, crutches provided for support. Ibuprofen and Robaxin prescribed for home. Walker prescribed for home. Instructed patient to follow up with primary care provider. Patient verbalizes understanding and agreement with treatment plan. Patient is medically cleared and stable for discharge. Discussed reasons to return to the emergency department. Patient agrees with treatment plan. The patients vital signs are stable and the patient is stable for outpatient follow-up and treatment. Patient discharged home, stable and in no acute distress. Diagnosis Primary Impression: Pain in left lower leg Referrals: Primary Care Physician Patient Instructions: General Instructions, Leg Pain (ED), Muscle Cramp (ED), Muscle Spasm (ED), Muscle Strain (ED) Additional Instructions: Tylenol or ibuprofen as directed and as needed for pain and inflammation Rest, ice, compress, and elevate extremity to decrease pain and inflammation Hiram bandage for compression and support Crutches and/or walker for support Avoid aggravating activity; increase activity as tolerated Follow-up with primary care provider Return to the emergency department immediately with worsening of symptoms Med/Other Pt SpecificInfo: Prescription(s) given Scripts Walker/Adult/Folding (Walker/Adult/Folding) 1 Mis Mis EA .XX DIRECTED, #1 0 Refills Prov: Lindsey Brooks ROUTE DELIVERY CLERK 01/29/18 Ibuprofen (Ibuprofen) 800 Mg Tab 800 MG PO Q6HR Y for PAIN, #30 TAB 0 Refills Prov: Lindsey Brooks ROUTE DELIVERY CLERK 01/29/18 Methocarbamol (Robaxin) 500 Mg Tab 500 MG PO QID Y for MUSCLE SPASM, #30 TAB 0 Refills Prov: Lindsey Brooks 01/29/18 Disposition: 01 DISCHARGE HOME Condition: Stable Lindsey Brooks Jan 29, 2018 19:39
--- NOTE | 2018-01-29 19:51 | RADRPT ---
EXAM DATE/TIME: 01/29/2018 19:44 [facility] COMPARISON: No previous studies available for comparison. INDICATIONS : Left lower leg pain. Patient felt a pop today. MEDICAL HISTORY : Hypercholesterolemia. Hypertension. GERD. Sepsis. Diabetes. SURGICAL HISTORY : section. Oral surgery. ENCOUNTER: Initial ACUITY: 1 day PAIN SCORE: 5/10 LOCATION: Left lower leg. FINDINGS: Two view examination of the left tibia demonstrates no evidence of fracture or dislocation. Bony min eralization is normal. There is mild apparent soft tissue prominence along the calf musculature poste riorly. CONCLUSION: Mild apparent soft tissue prominence along the posterior calf musculature. Ray Cabrera MD on January 29, 2018 at 19:48 Board Certified Radiologist. This report was verified electronically.
--- NOTE | 2018-01-29 20:42 | RADRPT ---
EXAM DATE/TIME: 01/29/2018 20:12 [facility] COMPARISON: No previous studies available for comparison. INDICATIONS : Left leg pain. MEDICAL HISTORY : Hypercholesterolemia. Hypertension. Right breast abscess. Diabetes. Tobacco use. SURGICAL HISTORY : section. Right breast abscess drainage. ENCOUNTER: Initial ACUITY: 1 day PAIN SCORE: 2/10 LOCATION: Left leg. TECHNIQUE: Venous ultrasound of the leg was performed from the inguinal ligament to the proximal calf. Real-donna e, color Doppler and spectral tracing, compression and augmentation techniques were used. FINDINGS: There is normal compressibility of the deep venous system from the inguinal region to the proximal ca lf. No echogenic clot is seen in the lumen of the common femoral, femoral, popliteal, and posterior tibial veins. There is a normal response of the venous system to proximal and distal augmentation an d respiration. CONCLUSION: Negative exam with no evidence of deep venous thrombosis. Ray Cabrera MD on January 29, 2018 at 20:39 Board Certified Radiologist. This report was verified electronically.
[2018-01-29] MEDS ORDERED: ROBA500T PO (20:50)
[2018-01-29] MEDS ORDERED: IBUP1TAB7 PO (20:50)
[2018-01-29] MEDS ORDERED: WALKER/ADULT/FO1 MIS (20:51)
== END 2018-01-29 21:08 | disposition home or self-care (01) ==
LOC: NEPK 18:19
DX: M79.605 Pain in left leg (principal); I10 Essential (primary) hypertension; E11.40 Type 2 diabetes mellitus with diabetic neuropathy, unspecified; E78.00 Pure hypercholesterolemia, unspecified; F17.200 Nicotine dependence, unspecified, uncomplicated; Z79.4 Long term (current) use of insulin; Z79.899 Other long term (current) drug therapy
CPT/HCPCS: 73590; 93971; 99284; E0113